=== PATIENT | female | born 1970 | race Caucasian/White ===

== ENCOUNTER 2016-11-14 00:35 | Emergency (ER) | payer BC ==
[2016-11-14] MEDS ORDERED: Catapres 0.1 MG PO ONE (01:04)
[2016-11-14] MEDS ORDERED: TRANDATE 20 MG/5 ML SYRINGE IV ONE (01:08)
[2016-11-14 01:15] LABS: BASOPHIL % 0.4 % (0.0-0.4); Eosinophil % 1.6 % (0.00-5.0); Granulocytes % 66.7 % (36.0-66.0); Lymphocytes % 25.6 % (24.0-44.0); Mean Cell Volume 87.5 fl (78-100); Mean Corpuscular Hemoglobin 28.8 pg (26-32); Mean Platelet Volume 8.9 fl (6-9.5); Monocytes % 5.7 % (0.0-12.0); Platelet Count 329 K/mm3 (150-450); Red Blood Count 3.92 M/mm3 (4.1-5.4); Red Cell Distribution Width 14.2 % (11.5-14.0); White Blood Count 10.6 K/mm3 (4.0-10.5)
[2016-11-14] MEDS ORDERED: Sodium Chloride 0.9% 1000 ML 1,000 ML IV SCH (01:15)
--- NOTE | 2016-11-14 01:19 | ERPHSYRPT ---
- History of Present Illness Time Seen by Provider: 11/14/16 00:55 Source: patient Exam Limitations: clinical condition Patient Subjective Stated Complaint: pt has an headache -no releif with rest , tramdol and excerine-she has headache that are usually relieved with those meds -she has been under alot of stress recently with money issues and driving a long distance to see a new grandchild Triage Nursing Assessment: pt is awake and alert and able to answer questions Physician History: PATIENT WITH A HISTORY OF CHRONIC HEADACHES COMPLAINS OF ELEVATED BLOOD PRESSURE FOR 2 DAYS ASSOICATDED WITH A GENERALIZED HEADACHE OVER THE PAST 24 HOURS. DENIES BLURRED VISION, SLURRED SPEECH OR CHEST PAIN. Timing/Duration: yesterday Quality: throbbing Head Pain Location: global Severity of Pain-Max: moderate Severity of Pain-Current: moderate Recent Head Trauma: occasional headaches Associated Symptoms: neck pain Allergies/Adverse Reactions: morphine Allergy (Verified 11/14/16 01:19) prochlorperazine [From Compazine] Adverse Reaction (Verified 11/14/16 01:19) Home Medications: Cholesterol 1 tab DAILY 11/14/16 [History] Doxepin HCl 300 mg DAILY 11/14/16 [History] Liraglutide [Victoza 2-Jonatan] 0 mg DAILY 11/14/16 [History] Lisinopril 20 mg [Zestril 20 MG] 1 tab DAILY 11/14/16 [History] Oxcarbazepine 300 mg [Trileptal 300 MG Tablet] 600 mg DAILY 11/14/16 [ History] Venlafaxine HCl [Effexor Xr] 150 mg PO DAILY 11/14/16 [History] Hx Tetanus, Diphtheria Vaccination/Date Given: No Hx Influenza Vaccination/Date Given: Yes Hx Pneumococcal Vaccination/Date Given: No - Review of Systems Constitutional: No Fever, No Chills Eyes: No Symptoms Ears, Nose, & Throat: No Symptoms Respiratory: No Symptoms, No Cough, No Dyspnea Cardiac: No Symptoms, No Chest Pain, No Edema, No Syncope Abdominal/Gastrointestinal: No Symptoms, No Abdominal Pain, No Nausea, No Vomiting, No Diarrhea Genitourinary Symptoms: No Symptoms, No Dysuria Musculoskeletal: No Symptoms, No Back Pain, No Neck Pain Skin: No Rash Neurological: Headache, No Dizziness, No Focal Weakness, No Sensory Changes Psychological: No Symptoms Endocrine: No Symptoms All Other Systems: Reviewed and Negative - Social History Smoking Status: Current every day smoker Exposure to second hand smoke: No Patient Lives Alone: No - Nursing Vital Signs Nursing Vital Signs: Initial Vital Signs Temperature 98.5 F 11/14/16 00:45 Pulse Rate 106 H 11/14/16 00:45 Respiratory Rate 20 11/14/16 00:45 Blood Pressure 177/104 11/14/16 00:45 O2 Sat by Pulse Oximetry 97 11/14/16 00:45 Pain Scale Pain Intensity 7 - Physical Exam General Appearance: no apparent distress Eye Exam: PERRL/EOMI Ears, Nose, Throat Exam: normal ENT inspection, moist mucous membranes Neck Exam: normal inspection, supple, full range of motion, No meningismus Respiratory Exam: normal breath sounds, lungs clear Cardiovascular Exam: regular rate/rhythm, normal heart sounds Gastrointestinal/Abdominal Exam: soft, normal bowel sounds, No tenderness, No distention Back Exam: normal inspection, normal range of motion Extremity Exam: normal inspection 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, 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, cooperative budget specialist Exam: normal speech, PERRL, No facial droop Coordination/Gait Exam: normal cerebellar function Motor/Sensory Exam: no motor deficit, no sensory deficit DTR Exam: bicep (R): 2+, bicep (L): 2+, tricep (R): 2+, tricep (L): 2+, knee (R) : 2+, knee (L): 2+, ankle (R): 2+, ankle (L): 2+, 0 Skin Exam: normal color, warm, dry, No rash SpO2 Interpretation: normal SpO2: 97 Oxygen Delivery: Room Air - Course EKG Interpreted by Me: RATE, Sinus Rhythm, Sinus Tach (RATE 96), NORMAL AXIS - CT Exams Head CT Interpretation: Tele-radiologist Report (NORMAL HEAD/BRAIN CT) Ordered Tests: Active Orders 24 hr Category Date Time Status Engineering Technology Instructor STAT Care 11/14/16 01:03 Active Clean Catch Urine Specimen STAT Care 11/14/16 02:18 Active EKG-ER Only STAT Care 11/14/16 01:02 Active IV Insertion STAT Care 11/14/16 01:02 Active HEAD WITHOUT CONTRAST [CT] Stat Exams 11/14/16 01:09 Taken BMP Stat Lab 11/14/16 01:10 Completed CBC W DIFF Stat Lab 11/14/16 01:10 Completed Urine Triage Profile Stat Lab 11/14/16 01:45 Completed Medication Summary Generic Name Dose Route Start Last Admin Trade Name Aquiles PRN Reason Stop Dose Admin Sodium Chloride 1,000 mls @ 100 mls/hr 11/14/16 01:15 11/14/16 01:43 Sodium Chloride 0.9% 1000 Ml IV 12/14/16 01:14 100 mls/hr .Q10H ANGELITA Administration Discontinued Medications Generic Name Dose Route Start Last Admin Trade Name Aquiles PRN Reason Stop Dose Admin Hydrocodone Bitart/Acetaminophen 1 tab 11/14/16 02:40 11/14/16 02:45 [place] 10/325 Mg Tablet PO 11/14/16 02:41 1 tab SENT HOME W/ PATIENT ONE Administration Hydrocodone Bitart/Acetaminophen Confirm 11/14/16 02:43 [place] 10/325 Mg Tablet Administered 11/14/16 02:44 Dose 1 tab .ROUTE .STK-MED ONE Clonidine 0.1 mg 11/14/16 01:04 11/14/16 01:34 Catapres 0.1 Mg PO 11/14/16 01:05 Not Given STAT ONE Hydromorphone HCl 1 mg 11/14/16 01:51 11/14/16 01:54 Hydromorphone 1 Mg/Ml Ampule IV 11/14/16 01:52 1 mg STAT ONE Administration Hydromorphone HCl Confirm 11/14/16 01:51 Hydromorphone 1 Mg/Ml Ampule Administered 11/14/16 01:52 Dose 1 mg .ROUTE .STK-MED ONE Ketorolac Tromethamine 30 mg 11/14/16 02:38 11/14/16 02:45 Toradol 30 Mg Injection IV 11/14/16 02:39 30 mg STAT ONE Administration Ketorolac Tromethamine Confirm 11/14/16 02:41 Toradol 30 Mg Injection Administered 11/14/16 02:42 Dose 30 mg .ROUTE .STK-MED ONE Labetalol HCl 10 mg 11/14/16 01:08 11/14/16 01:46 Trandate 20 Mg/5 Ml Syringe IV 11/14/16 01:09 10 mg STAT ONE Administration Labetalol HCl Confirm 11/14/16 01:42 Trandate 100 Mg/20 Ml Mdv For Drip Administered 11/14/16 01:43 Dose 100 mg IV .STK-MED ONE Ondansetron HCl 4 mg 11/14/16 01:50 11/14/16 01:53 Zofran 4 Mg/2 Ml Vial IV 11/14/16 01:51 4 mg STAT ONE Administration Ondansetron HCl Confirm 11/14/16 01:51 Zofran 4 Mg/2 Ml Vial Administered 11/14/16 01:52 Dose 4 mg .ROUTE .STK-MED ONE Potassium Chloride 40 meq 11/14/16 01:38 11/14/16 01:44 Klor Con 10 Meq PO 11/14/16 01:39 40 meq STAT ONE Administration Potassium Chloride Confirm 11/14/16 01:41 Klor Con 10 Meq Administered 11/14/16 01:42 Dose 40 meq PO .STK-MED ONE Lab/Rad Data: Laboratory Result Diagrams 11/14/16 01:10 11/14/16 01:10 Laboratory Results 11/14/16 11/14/16 11/14/16 Range/Units 01:45 01:10 01:10 WBC 10.6 H (4.0-10.5) K/mm3 RBC 3.92 L (4.1-5.4) M/mm3 Hgb 11.3 L (12.0-16.0) gm/dl Hct 34.3 L (35-47) % MCV 87.5 (78-100) fl MCH 28.8 (26-32) pg MCHC 32.9 (32-36) g/dl RDW 14.2 H (11.5-14.0) % Plt Count 329 (150-450) K/mm3 MPV 8.9 (6-9.5) fl Gran % 66.7 H (36.0-66.0) % Lymphocytes % 25.6 (24.0-44.0) % Monocytes % 5.7 (0.0-12.0) % Eosinophils % 1.6 (0.00-5.0) % Basophils % 0.4 (0.0-0.4) % Basophils # 0.04 (0-0.4) Sodium 134 L (136-145) mEq/L Potassium 2.8 L* (3.5-5.1) mEq/L Chloride 99 (98-107) mEq/L Carbon Dioxide 22.8 (21-32) mEq/L Anion Gap 13.5 (5-15) MEQ/L BUN 7 L (9-20) mg/dL Creatinine 0.82 (0.55-1.30) mg/dl Estimated GFR > 60 ML/MIN Glucose 143 H (70-110) MG/DL Calcium 8.5 (8.5-10.1) mg/dL Urine Opiates Level NEG. (NEGATIVE) Ur Methadone NEG. (NEGATIVE) Urine Barbiturates NEG. (NEGATIVE) Ur Phencyclidine (PCP) NEG. (NEGATIVE) Urine Amphetamine NEG. (NEGATIVE) U Benzodiazepine Level POS. (NEGATIVE) Urine Cocaine NEG. (NEGATIVE) Urine Marijuana (THC) NEG. (NEGATIVE) - Progress Progress Note: 11/14/16 01:31 PATIENT ADMINISTERED IV NORMAL SALINE 100ML/HR, ZOFRAN 4MG DILAUDID 1MG IV, KLOR CON 40MEQ ORALLY OR K-2.8 11/14/16 01:52 Counseled pt/family regarding: lab results, diagnosis, need for follow-up - Departure Time of Disposition: 03:00 Departure Disposition: Home Clinical Impression: ACUTE CEPHAGIA, HYPERTENSION, HYPOKALEMIA Condition: Stable Critical Care Time: No Referrals: VIKRAM ALVARADO FNP [Primary Care Provider] - Instructions: High Blood Pressure, Headache Additional Instructions: CONTINUE ALL CURRENT MEDICATIONS ALONG WITH TOPROL XL 25 MG DAILY FOR ELEVATED BLOOD PRESSURE. KLOR CON 20MEQ DAILY FOR 10 DAYS FOR TREATMENT OF LOW POTASSIUM. NORCO 10/325 EVERY 4 HOURS FOR PAIN. CONSULT YOUR PRIMARY CARE PHYSICIAN FOR EVALUATION, AND TREATMENT . Prescriptions: Hydrocodone/APAP 10/325 mg [[place] 10/325 MG Tablet] 1 tab PO Q4H PRN PRN # 10 tablet PRN Reason: Pain Metoprolol Succinate 25 mg Xl* [Toprol-Xl 25MG Tablets] 25 mg PO DAILY #30 tab Potassium Chloride 20 Meq [Klor-Con 20 MEQ] 20 meq PO DAILY #7 tab
[2016-11-14 01:29] LABS: ANION GAP 13.5 MEQ/L (5-15); BLOOD UREA NITROGEN 7 mg/dL (9-20); CHLORIDE 99 mEq/L (98-107); Carbon Dioxide 22.8 mEq/L (21-32); Glucose 143 MG/DL (70-110); SODIUM 134 mEq/L (136-145)
[2016-11-14 01:35] LABS: Potassium 2.8 mEq/L (3.5-5.1)
[2016-11-14] MEDS ORDERED: Klor Con 10 MEQ PO ONE ×2 (01:38→01:41)
[2016-11-14] MEDS ORDERED: Sodium Chloride 0.9% 1000 ML 1,000 ML ONE (01:42)
[2016-11-14] MEDS ORDERED: TRANDATE 100 MG/20 ML MDV FOR DRIP IV ONE (01:42)
[2016-11-14] MEDS ORDERED: Zofran 4 MG/2 ML VIAL IV ONE (01:50)
[2016-11-14] MEDS ORDERED: Hydromorphone 1 mg/ml Ampule ONE (01:51)
[2016-11-14] MEDS ORDERED: Hydromorphone 1 mg/ml Ampule IV ONE (01:51)
[2016-11-14] MEDS ORDERED: Zofran 4 MG/2 ML VIAL ONE (01:51)
[2016-11-14] MEDS ORDERED: TORAdol 30 mg Injection IV ONE (02:38)
[2016-11-14] MEDS ORDERED: Norco 10/325 MG Tablet PO ONE (02:40)
[2016-11-14] MEDS ORDERED: TORAdol 30 mg Injection ONE (02:41)
[2016-11-14] MEDS ORDERED: Norco 10/325 MG Tablet ONE (02:43)
[2016-11-14 03:01] VITALS: O2SAT 97
[2016-11-14 03:32] VITALS: BP 140/96; PULSE 86
--- NOTE | 2016-11-14 08:56 | XRAY ---
Indication: Sudden onset severe headache. History of migraine and hypertension. Multiple contiguous axial images obtained through the head without contrast. Comparison: None. Normal appearing brain parenchyma, ventricles, and bony calvarium. Visualized paranasal sinuses and mastoid air cells clear. Impression: Normal CT head without contrast exam. Comment: Preliminary interpretation was made by [facility]. No discrepancy. CT DI 66.81
== END 2016-11-14 03:15 | disposition home or self-care (01) ==
LOC: ED 00:35 → MERGE 00:35 → ED 03:15
DX: R51 Headache (principal); I10 Essential (primary) hypertension; E87.6 Hypokalemia; Z79.899 Other long term (current) drug therapy
CPT/HCPCS: 36000; 36415; 70450; 80048; 80307; 85025; 93005; 93041; 96360; 96374; 96375; 99284; J1170; J1885; J2405; A9270-GY

== ENCOUNTER 2016-11-22 11:28 | Emergency (ER) | payer BC ==
[2016-11-22] MEDS ORDERED: Sodium Chloride 0.9% 1000 ML 1,000 ML IV STA (11:53)
[2016-11-22] MEDS ORDERED: BENADRYL 50 MG/ML IV ONE ×2 (11:56→12:38)
[2016-11-22] MEDS ORDERED: Hydromorphone 1 mg/ml Ampule IV ONE ×2 (11:56→12:38)
[2016-11-22] MEDS ORDERED: Sodium Chloride 0.9% 1000 ML 1,000 ML ONE (11:56)
[2016-11-22] MEDS ORDERED: Zyprexa Zydis 5 MG PO ONE ×4 (11:57→12:40)
[2016-11-22] MEDS ORDERED: Hydromorphone 1 mg/ml Ampule ONE ×2 (12:01→12:40)
[2016-11-22] MEDS ORDERED: BENADRYL 50 MG/ML ONE ×2 (12:01→12:40)
[2016-11-22 12:08] LABS: BASOPHIL % 0.2 % (0.0-0.4); Eosinophil % 1.6 % (0.00-5.0); Granulocytes % 71.8 % (36.0-66.0); Lymphocytes % 20.7 % (24.0-44.0); Mean Cell Volume 86.7 fl (78-100); Mean Platelet Volume 8.3 fl (6-9.5); Monocytes % 5.7 % (0.0-12.0); Platelet Count 319 K/mm3 (150-450); Red Blood Count 4.07 M/mm3 (4.1-5.4); Red Cell Distribution Width 14.2 % (11.5-14.0); White Blood Count 9.2 K/mm3 (4.0-10.5)
[2016-11-22 12:10] LABS: Mean Corpuscular Hemoglobin 28.9 pg (26-32)
[2016-11-22 12:17] LABS: Collection Type VOID; Glucose TRACE mg/dL (NEGATIVE); Leukocyte Esterase TRACE (NEGATIVE)
[2016-11-22 12:18] LABS: ADD URINE CULTURE? YES (NO); Bilirubin SMALL (NEGATIVE); COMPLETE URINE MICROSCOPIC? YES
[2016-11-22 12:19] LABS: Bacteria FEW /HPF (NEGATIVE); Mucus SLIGHT /HPF (NEGATIVE)
--- NOTE | 2016-11-22 12:29 | ERPHSYRPT ---
- History of Present Illness Time Seen by Provider: 11/22/16 11:30 Source: patient, family () Patient Subjective Stated Complaint: pt states she was awakened this morning with low back and dizziness. Triage Nursing Assessment: pt cool, moist pink. pt alert and oriented x3. pupils perrl. Physician History: CC: low back pain Hx: 46 y/o patient of ALEJANDRA Mccartney at [facility] in [place]. She recently moved to [place]. She has hx of DM, bipolar disorder, HTN. Prior hysterectomy. She states she had severe low back pain since this AM. Also has neck pain. She has no headache although was seen in this ER 10-2 with headache which resolved. She has feeling of dizziness with room spinning. Nausea and vomiting. No diarrhea. No abd pain. Normal urination. No ear pain. No fever or chills. She feels malaise. 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 Symptoms are severe. At last visit she had hypokalemia and HTN. Was apparently given Rx but she is not sure if she filled them. Timing/Duration: today Allergies/Adverse Reactions: morphine Allergy (Verified 11/22/16 11:46) prochlorperazine [From Compazine] Adverse Reaction (Verified 11/22/16 11:46) Home Medications: Doxepin HCl 300 mg PO DAILY 11/14/16 [History] Liraglutide [Victoza 2-Jonatan] 0 mg DAILY 11/14/16 [History] Lisinopril 20 mg [Zestril 20 MG] 1 tab DAILY 11/14/16 [History] Oxcarbazepine 300 mg [Trileptal 300 MG Tablet] 600 mg DAILY 11/14/16 [ History] Venlafaxine HCl [Effexor Xr] 150 mg PO DAILY 11/14/16 [History] Hx Tetanus, Diphtheria Vaccination/Date Given: Yes (unknown) Hx Influenza Vaccination/Date Given: No Hx Pneumococcal Vaccination/Date Given: No Immunizations Up to Date: Yes - Review of Systems Constitutional: No Fever, No Chills Eyes: No Vision Changes Ears, Nose, & Throat: No Symptoms, No Ear Pain Respiratory: No Cough, No Dyspnea Cardiac: No Chest Pain, No Palpitations, No Syncope Abdominal/Gastrointestinal: Nausea, Vomiting, No Abdominal Pain, No Diarrhea Genitourinary Symptoms: No Dysuria Musculoskeletal: Back Pain, Neck Pain, No Fall, No Injury, No Joint Pain Skin: No Rash Neurological: No Focal Weakness, No Headache, No Parasthesia All Other Systems: Reviewed and Negative - Past Medical History Pertinent Past Medical History: Yes Neurological History: Other ENT History: No Pertinent History Cardiac History: High Cholesterol, Hypertension Respiratory History: No Pertinent History Endocrine Medical History: No Pertinent History, Diabetes Type II Musculoskeletal History: Fractures, Arthritis, Fibromyalgia GI Medical History: GERD, Gallbladder Disease, Esophageal Disorder History: No Pertinent History Psycho-Social History: Bipolar, Depression, Anxiety Female Reproductive Disorders: Endometriosis Other Medical History: cluster headaches -dilate esophagus -hyponatremia - Past Surgical History Past Surgical History: Yes Gastrointestinal: Cholecystectomy Musculoskeletal: Other Female Surgical History: Hysterectomy Other Surgical History: right foot fracture left ankle - Social History Smoking Status: Current every day smoker How long have you smoked: 30 Exposure to second hand smoke: No Drug Use: none Patient Lives Alone: No (here with ) - Nursing Vital Signs Nursing Vital Signs: Initial Vital Signs Temperature 97.9 F 11/22/16 11:34 Pulse Rate 95 H 11/22/16 11:34 Respiratory Rate 18 11/22/16 11:34 Blood Pressure 180/100 11/22/16 11:34 O2 Sat by Pulse Oximetry 97 11/22/16 11:34 Pain Scale Pain Intensity 4 - Physical Exam General Appearance: alert Eye Exam: PERRL/EOMI Ears, Nose, Throat Exam: normal ENT inspection, moist mucous membranes Neck Exam: normal inspection, non-tender, supple Respiratory Exam: normal breath sounds Cardiovascular Exam: regular rate/rhythm Gastrointestinal/Abdomen Exam: soft, No tenderness, No distention, No mass, No guarding Back Exam: normal inspection, other (complains of low back pain diffusely), No CVA tenderness, No vertebral tenderness Extremity Exam: normal inspection, normal range of motion Neurologic Exam: alert, 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, cooperative, rf manager II-XII nml as tested, nml cerebellar function (FTN and heel to hill intact without ataxia), sensation nml, other (2+ MSR's both patella), No motor deficits Skin Exam: warm, dry (although nurse reported initially diaphoretic on arrival) , No rash SpO2 Interpretation: normal SpO2: 97 Oxygen Delivery: Room Air - Course Nursing assessment & vital signs reviewed: Yes EKG Interpreted by Me: RATE (91), Sinus Rhythm, NORMAL AXIS, NORMAL INTERVALS ( QTc 483 borderline), NORMAL QRS, NORMAL ST-T Ordered Tests: Active Orders 24 hr Category Date Time Status Accucheck STAT Care 11/22/16 11:53 Active EKG-ER Only STAT Care 11/22/16 11:53 Active IV Insertion STAT Care 11/22/16 11:44 Active cath [Cath for Specimen-Straight] STAT Care 11/22/16 11:59 Active CBC W DIFF Stat Lab 11/22/16 12:00 Completed CMP Stat Lab 11/22/16 12:00 Completed CULTURE,URINE Stat Lab 11/22/16 11:53 Received MAGNESIUM Stat Lab 11/22/16 12:00 Completed UA W/ MICROSCOPIC Stat Lab 11/22/16 11:53 Completed Urine Triage Profile Stat Lab 11/22/16 11:53 Completed Medication Summary Discontinued Medications Generic Name Dose Route Start Last Admin Trade Name Freq PRN Reason Stop Dose Admin Diphenhydramine HCl 25 mg 11/22/16 11:56 11/22/16 12:03 Benadryl 50 Mg/Ml IV 11/22/16 11:57 25 mg STAT ONE Administration Diphenhydramine HCl Confirm 11/22/16 12:01 Benadryl 50 Mg/Ml Administered 11/22/16 12:02 Dose 50 mg .ROUTE .STK-MED ONE Diphenhydramine HCl 25 mg 11/22/16 12:38 11/22/16 12:43 Benadryl 50 Mg/Ml IV 11/22/16 12:39 25 mg STAT ONE Administration Diphenhydramine HCl Confirm 11/22/16 12:40 Benadryl 50 Mg/Ml Administered 11/22/16 12:41 Dose 50 mg .ROUTE .STK-MED ONE Hydromorphone HCl 1 mg 11/22/16 11:56 11/22/16 12:03 Hydromorphone 1 Mg/Ml Ampule IV 11/22/16 11:57 1 mg STAT ONE Administration Hydromorphone HCl Confirm 11/22/16 12:01 Hydromorphone 1 Mg/Ml Ampule Administered 11/22/16 12:02 Dose 1 mg .ROUTE .STK-MED ONE Hydromorphone HCl 1 mg 11/22/16 12:38 11/22/16 12:44 Hydromorphone 1 Mg/Ml Ampule IV 11/22/16 12:39 1 mg STAT ONE Administration Hydromorphone HCl Confirm 11/22/16 12:40 Hydromorphone 1 Mg/Ml Ampule Administered 11/22/16 12:41 Dose 1 mg .ROUTE .STK-MED ONE Sodium Chloride 1,000 mls @ 999 mls/hr 11/22/16 11:53 11/22/16 11:59 Sodium Chloride 0.9% 1000 Ml IV 11/22/16 12:53 999 mls/hr .Q1H1M STA Administration Sodium Chloride Confirm 11/22/16 11:56 Sodium Chloride 0.9% 1000 Ml Administered 11/22/16 11:57 Dose 1,000 mls @ ud .ROUTE .STK-MED ONE Olanzapine 5 mg 11/22/16 11:57 11/22/16 12:04 Zyprexa Zydis 5 Mg PO 11/22/16 11:58 5 mg STAT ONE Administration Olanzapine Confirm 11/22/16 12:01 Zyprexa Zydis 5 Mg Administered 11/22/16 12:02 Dose 5 mg PO .STK-MED ONE Olanzapine 5 mg 11/22/16 12:39 11/22/16 12:44 Zyprexa Zydis 5 Mg PO 11/22/16 12:40 5 mg STAT ONE Administration Olanzapine Confirm 11/22/16 12:40 Zyprexa Zydis 5 Mg Administered 11/22/16 12:41 Dose 5 mg PO .STK-MED ONE Lab/Rad Data: Laboratory Result Diagrams 11/22/16 12:00 11/22/16 12:00 Laboratory Results 11/22/16 11/22/16 11/22/16 Range/Units 12:00 12:00 12:00 WBC 9.2 (4.0-10.5) K/mm3 RBC 4.07 L (4.1-5.4) M/mm3 Hgb 11.8 L (12.0-16.0) gm/dl Hct 35.3 (35-47) % MCV 86.7 (78-100) fl MCH 28.9 (26-32) pg MCHC 33.4 (32-36) g/dl RDW 14.2 H (11.5-14.0) % Plt Count 319 (150-450) K/mm3 MPV 8.3 (6-9.5) fl Gran % 71.8 H (36.0-66.0) % Lymphocytes % 20.7 L (24.0-44.0) % Monocytes % 5.7 (0.0-12.0) % Eosinophils % 1.6 (0.00-5.0) % Basophils % 0.2 (0.0-0.4) % Basophils # 0.02 (0-0.4) Sodium 130 L (136-145) mEq/L Potassium 3.5 (3.5-5.1) mEq/L Chloride 95 L (98-107) mEq/L Carbon Dioxide 25.1 (21-32) mEq/L Anion Gap 13.2 (5-15) MEQ/L BUN 7 L (9-20) mg/dL Creatinine 0.75 (0.55-1.30) mg/dl Estimated GFR > 60 ML/MIN Glucose 131 H (70-110) MG/DL Calcium 8.6 (8.5-10.1) mg/dL Magnesium 1.9 (1.8-2.4) mg/dL Total Bilirubin 0.30 (0.2-1.0) mg/dL AST 15 (15-37) U/L ALT 21 (12-78) U/L Alkaline Phosphatase 115 (46-116) U/L Serum Total Protein 7.5 (6.4-8.2) gm/dL Albumin 3.6 (3.4-5.0) g/dL Ur Collection Type Urine Color (YELLOW) Urine Appearance (CLEAR) Urine pH (5-6) Ur Specific [place] (1.005-1.025) Urine Protein (Negative) Urine Ketones (NEGATIVE) Urine Blood (0-5) Stanley/ul Urine Nitrite (NEGATIVE) Urine Bilirubin (NEGATIVE) Urine Urobilinogen (0-1) mg/dL Ur Leukocyte Esterase (NEGATIVE) Urine Microscopic RBC (0-2) /HPF Urine Microscopic WBC (0-5) /HPF Urine Bacteria (NEGATIVE) /HPF Urine Mucus (NEGATIVE) /HPF Urine Culture Reflexed (NO) Urine Glucose (NEGATIVE) mg/dL Urine Opiates Level (NEGATIVE) Ur Methadone (NEGATIVE) Urine Barbiturates (NEGATIVE) Ur Phencyclidine (PCP) (NEGATIVE) Urine Amphetamine (NEGATIVE) U Benzodiazepine Level (NEGATIVE) Urine Cocaine (NEGATIVE) Urine Marijuana (THC) (NEGATIVE) Specimen Received 11/22/16 11/22/16 Range/Units 11:53 11:53 WBC (4.0-10.5) K/mm3 RBC (4.1-5.4) M/mm3 Hgb (12.0-16.0) gm/dl Hct (35-47) % MCV (78-100) fl MCH (26-32) pg MCHC (32-36) g/dl RDW (11.5-14.0) % Plt Count (150-450) K/mm3 MPV (6-9.5) fl Gran % (36.0-66.0) % Lymphocytes % (24.0-44.0) % Monocytes % (0.0-12.0) % Eosinophils % (0.00-5.0) % Basophils % (0.0-0.4) % Basophils # (0-0.4) Sodium (136-145) mEq/L Potassium (3.5-5.1) mEq/L Chloride (98-107) mEq/L Carbon Dioxide (21-32) mEq/L Anion Gap (5-15) MEQ/L BUN (9-20) mg/dL Creatinine (0.55-1.30) mg/dl Estimated GFR ML/MIN Glucose (70-110) MG/DL Calcium (8.5-10.1) mg/dL Magnesium (1.8-2.4) mg/dL Total Bilirubin (0.2-1.0) mg/dL AST (15-37) U/L ALT (12-78) U/L Alkaline Phosphatase (46-116) U/L Serum Total Protein (6.4-8.2) gm/dL Albumin (3.4-5.0) g/dL Ur Collection Type VOID Urine Color YELLOW (YELLOW) Urine Appearance CLEAR (CLEAR) Urine pH 6.0 (5-6) Ur Specific [place] 1.020 (1.005-1.025) Urine Protein 2+ (Negative) Urine Ketones TRACE (NEGATIVE) Urine Blood 5-10 (0-5) Stanley/ul Urine Nitrite NEGATIVE (NEGATIVE) Urine Bilirubin SMALL (NEGATIVE) Urine Urobilinogen NORMAL (0-1) mg/dL Ur Leukocyte Esterase TRACE (NEGATIVE) Urine Microscopic RBC 2-5 (0-2) /HPF Urine Microscopic WBC 2-5 (0-5) /HPF Urine Bacteria FEW (NEGATIVE) /HPF Urine Mucus SLIGHT (NEGATIVE) /HPF Urine Culture Reflexed YES (NO) Urine Glucose TRACE (NEGATIVE) mg/dL Urine Opiates Level NEG. (NEGATIVE) Ur Methadone NEG. (NEGATIVE) Urine Barbiturates NEG. (NEGATIVE) Ur Phencyclidine (PCP) NEG. (NEGATIVE) Urine Amphetamine NEG. (NEGATIVE) U Benzodiazepine Level POS. (NEGATIVE) Urine Cocaine NEG. (NEGATIVE) Urine Marijuana (THC) NEG. (NEGATIVE) Specimen Received 11/22/16 1200 - Progress Progress Note: 11/22/16 12:35 INSPECT reviewed: She had valium last week from ALEJANDRA Mccartney, multiple Rx from various places for tramadol, hydrocodone, soma, ambien. She has first complaint of low back pain. Not similar to prior kidney stone and no injury. She has neck pain without headache or injury. She has some vertigo without nystagmus at present. Neuro exam wnl. Will check K and Na as hx of abnormalities. Will treat pain and dizzines with IVF, benadryl, dilaudid, zydis. Imaging does not appears immediately indicated. 11/22/16 14:04 She feels better after meds and IVF. Sugar ok. Explained need for BP control and to watch kidneys and DM as she has proteniuria. She has seen a photonics engineering technician in the past and plans follow up. She ambulated in [place]. Went to . She is able to do toe walk, heel walk, and tandem walk. She turns well. No cerebellar signs. She wants to go home. She has left over meclizine from the past and will use it. Advised she see ALEJANDRA Mccartney tomorrow for recheck. Instr given. She feels low back pain may be related to constipation and this was discussed. Counseled pt/family regarding: lab results, diagnosis, need for follow-up - Departure Time of Disposition: 14:06 Departure Disposition: Home Clinical Impression: Dizziness, Low back pain, Diabetes Condition: Stable Critical Care Time: No Referrals: VIKRAM MCCARTNEY FNP [Primary Care Provider] - Instructions: Vertigo, Low Back Pain Additional Instructions: Take meclizine as already prescribed. No driving and stay with family today. Avoid doxepin today if too sleepy. Follow up at [facility] tomorrow for recheck. Take your medication bottles with you. Your blood pressure needs to be rechecked and controlled to prevent kidney damage.
[2016-11-22 12:38] VITALS: O2SAT 97
[2016-11-22 12:46] LABS: ALBUMIN 3.6 g/dL (3.4-5.0); ALKALINE PHOSPHATASE 115 U/L (46-116); ANION GAP 13.2 MEQ/L (5-15); BLOOD UREA NITROGEN 7 mg/dL (9-20); CHLORIDE 95 mEq/L (98-107); Carbon Dioxide 25.1 mEq/L (21-32); Glucose 131 MG/DL (70-110); Potassium 3.5 mEq/L (3.5-5.1); SGOT/AST 15 U/L (15-37); SGPT/ALT 21 U/L (12-78); SODIUM 130 mEq/L (136-145); Total Protein 7.5 gm/dL (6.4-8.2)
[2016-11-22 13:49] VITALS: BP 163/109; PULSE 85
== END 2016-11-22 14:12 | disposition home or self-care (01) ==
LOC: ED 11:28
DX: R42 Dizziness and giddiness (principal); M54.5 Low back pain; E11.9 Type 2 diabetes mellitus without complications; F31.9 Bipolar disorder, unspecified; I10 Essential (primary) hypertension; R11.2 Nausea with vomiting, unspecified; E87.6 Hypokalemia
CPT/HCPCS: 36000; 36415; 80053; 80307; 81000; 82962; 83735; 85025; 87086; 93005; 96360; 96374; 96375; 96376; 99284; J1170; J1200; P9612; A9270-GY

== ENCOUNTER 2016-12-30 18:53 | Emergency (ER) | payer BC ==
[2016-12-30] MEDS ORDERED: ZOFRAN ODT 4 MG PO ONE (19:34)
[2016-12-30] MEDS ORDERED: Hydromorphone 1 mg/ml Ampule IM ONE (19:34)
[2016-12-30] MEDS ORDERED: ZOFRAN ODT 4 MG ONE (19:41)
[2016-12-30] MEDS ORDERED: Hydromorphone 1 mg/ml Ampule ONE (19:42)
--- NOTE | 2016-12-30 19:47 | ERPHSYRPT ---
- History of Present Illness Time Seen by Provider: 12/30/16 19:26 Source: patient Exam Limitations: no limitations Patient Subjective Stated Complaint: pt states that she has had a headache since monday. states she thinks it is a stress headache. Triage Nursing Assessment: pt alert and oriented, asnwers questions approp. pt ambulatory with steady gait noted. respirations nonlabored with lungs cta. skin pnk warm and dry. pupils equal and reactive, bilat upper and lower ext strength wnl. Physician History: FOR THE PAST 3 DAYS PT HAS HAD A STRESS HEADACHE LOCATED OVER THE OCCIPITAL AREA. PT STATES SHE HAS HAS SIMILAR HEADACHES FOR THE PAST 30 YEARS ABOUT 10X/ YEAR. LAST CT HEAD WAS ABOUT 1.5 MONTHS AGO AND WNL PER PT. PT DENIES VOMITING, ABDOMINAL PAIN, CHEST PAIN, SHORTNESS OF AIR, FEVER, WEAKNESS, NUMBNESS. Allergies/Adverse Reactions: morphine Allergy (Verified 12/30/16 19:13) prochlorperazine [From Compazine] Adverse Reaction (Verified 12/30/16 19:13) Home Medications: Doxepin HCl 300 mg PO DAILY 11/14/16 [History] Liraglutide [Victoza 2-Jonatan] 0 mg DAILY 11/14/16 [History] Lisinopril 20 mg [Zestril 20 MG] 1 tab DAILY 11/14/16 [History] Oxcarbazepine 300 mg [Trileptal 300 MG Tablet] 600 mg DAILY 11/14/16 [ History] Venlafaxine HCl [Effexor Xr] 150 mg PO DAILY 11/14/16 [History] Carisoprodol 350 mg [Soma 350 mg] 350 mg PO BID 12/30/16 [History] Esomeprazole Magnesium [Nexium] 20 mg PO DAILY 12/30/16 [History] Hydrocodone/Acetaminophen [[place] 5-325 Tablet] 1 each PO 12/30/16 [History] Hx Tetanus, Diphtheria Vaccination/Date Given: Yes Hx Influenza Vaccination/Date Given: Yes Hx Pneumococcal Vaccination/Date Given: No Immunizations Up to Date: Yes - Review of Systems Constitutional: No Fever Respiratory: No Dyspnea Cardiac: No Chest Pain Abdominal/Gastrointestinal: No Abdominal Pain, No Nausea, No Vomiting Neurological: Headache All Other Systems: Reviewed and Negative - Past Medical History Pertinent Past Medical History: Yes Neurological History: Other ENT History: No Pertinent History Cardiac History: High Cholesterol, Hypertension Respiratory History: No Pertinent History Endocrine Medical History: No Pertinent History, Diabetes Type II Musculoskeletal History: Fractures, Arthritis, Fibromyalgia GI Medical History: GERD, Gallbladder Disease, Esophageal Disorder History: No Pertinent History Psycho-Social History: Bipolar, Anxiety Female Reproductive Disorders: Endometriosis Other Medical History: cluster headaches -dilate esophagus -hyponatremia - Past Surgical History Past Surgical History: Yes Gastrointestinal: Cholecystectomy Musculoskeletal: Other Female Surgical History: Hysterectomy Other Surgical History: right foot fracture, carpal tunnel and tendon repair to rt wrist - Social History Smoking Status: Current every day smoker How long have you smoked: 30 Exposure to second hand smoke: No Drug Use: none Patient Lives Alone: No - Female History Hx Last Menstrual Period: hyster - Nursing Vital Signs Nursing Vital Signs: Initial Vital Signs Temperature 98.8 F 12/30/16 19:01 Pulse Rate 109 H 12/30/16 19:01 Respiratory Rate 18 12/30/16 19:01 Blood Pressure 132/92 12/30/16 19:01 O2 Sat by Pulse Oximetry 98 12/30/16 19:01 Pain Scale Pain Intensity 8 - Physical Exam General Appearance: alert Eye Exam: PERRL/EOMI Ears, Nose, Throat Exam: TMs normal, pharynx normal, moist mucous membranes Neck Exam: normal inspection Respiratory Exam: lungs clear Cardiovascular Exam: normal heart sounds Gastrointestinal/Abdominal Exam: soft, normal bowel sounds Back Exam: normal range of motion Extremity Exam: normal range of motion 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, 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 Exam: normal hearing, normal speech, PERRL Motor/Sensory Exam: no sensory deficit, negative Babinski's sign Skin Exam: warm, dry SpO2 Interpretation: normal SpO2: 98 Oxygen Delivery: Room Air - Course Nursing assessment & vital signs reviewed: Yes Ordered Tests: Medication Summary Generic Name Dose Route Start Last Admin Trade Name Freq PRN Reason Stop Dose Admin Hydromorphone HCl 1 mg 12/30/16 19:34 Hydromorphone 1 Mg/Ml Ampule IM 12/30/16 19:35 STAT ONE Ondansetron HCl 4 mg 12/30/16 19:34 Zofran Odt 4 Mg PO 12/30/16 19:35 STAT ONE - Departure Time of Disposition: 19:50 Departure Disposition: Home Clinical Impression: HEADACHE Condition: Stable Critical Care Time: No Referrals: VIKRAM ALVARADO FNP [Primary Care Provider] - Instructions: Headache Additional Instructions: FOLLOW UP WITH PRIVATE DOCTOR TOMORROW.
[2016-12-30 20:14] VITALS: BP 127/75; PULSE 80; O2SAT 97
== END 2016-12-30 20:39 | disposition home or self-care (01) ==
LOC: ED 18:53
DX: R51 Headache (principal); Z79.899 Other long term (current) drug therapy
CPT/HCPCS: 96372; 99283; 99284; J1170; Q0162

== ENCOUNTER 2017-01-16 16:59 | Emergency (ER) | payer BC ==
[2017-01-16] MEDS ORDERED: MOTRIN 400 MG PO ONE (17:18)
[2017-01-16] MEDS ORDERED: MOTRIN 400 MG ONE (17:21)
--- NOTE | 2017-01-16 17:22 | ERPHSYRPT ---
- History of Present Illness Time Seen by Provider: 01/16/17 17:18 Source: patient Exam Limitations: no limitations Patient Subjective Stated Complaint: Pt states "I had carpal tunnel surgery and tendon repair on my right wrist in december 06 and today I stepped in a hole and fell and put my hands out to catch myself and my wrist is killing me." Triage Nursing Assessment: Pt alert and oriented X 3, skin pwd. Pt ambulates with an upright steady gait, able to speak, in clear full sentences. right wrist swollen and right hand weak Physician History: mild to mod ache pain constant right wrist when tripped and fell today, no bleeding, no other injury, hx carpal tunnel surgery 12/[address] Boyce Allergies/Adverse Reactions: morphine Allergy (Verified 12/30/16 19:13) prochlorperazine [From Compazine] Adverse Reaction (Verified 12/30/16 19:13) Home Medications: Doxepin HCl 300 mg PO DAILY 11/14/16 [History] Liraglutide [Victoza 2-Jonatan] 9 mg PO DAILY 11/14/16 [History] Lisinopril 20 mg [Zestril 20 MG] 1 tab DAILY 11/14/16 [History] Oxcarbazepine 300 mg [Trileptal 300 MG Tablet] 600 mg DAILY 11/14/16 [ History] Venlafaxine HCl [Effexor Xr] 150 mg PO DAILY 11/14/16 [History] Esomeprazole Magnesium [Nexium] 20 mg PO DAILY 12/30/16 [History] Hx Tetanus, Diphtheria Vaccination/Date Given: Yes Hx Influenza Vaccination/Date Given: Yes Hx Pneumococcal Vaccination/Date Given: No Immunizations Up to Date: Yes - Review of Systems Constitutional: No Symptoms Eyes: No Symptoms Respiratory: No Symptoms Cardiac: No Symptoms Abdominal/Gastrointestinal: No Symptoms Musculoskeletal: Joint Pain, No Back Pain, No Neck Pain Skin: No Skin Lesions Neurological: No Dizziness - Past Medical History Pertinent Past Medical History: Yes Neurological History: Other ENT History: No Pertinent History Cardiac History: High Cholesterol, Hypertension Respiratory History: No Pertinent History Endocrine Medical History: No Pertinent History, Diabetes Type II Musculoskeletal History: Fractures, Arthritis, Fibromyalgia GI Medical History: GERD, Gallbladder Disease, Esophageal Disorder History: No Pertinent History Psycho-Social History: Bipolar, Anxiety Female Reproductive Disorders: Endometriosis Other Medical History: cluster headaches -dilate esophagus -hyponatremia - Past Surgical History Past Surgical History: Yes Gastrointestinal: Cholecystectomy Musculoskeletal: Other Female Surgical History: Hysterectomy Other Surgical History: right foot fracture, carpal tunnel and tendon repair to rt wrist - Social History Smoking Status: Current every day smoker How long have you smoked: 30 years Exposure to second hand smoke: Yes Drug Use: none Patient Lives Alone: No - Female History Hx Last Menstrual Period: hysterectomy Hx Now: No - Nursing Vital Signs Nursing Vital Signs: Initial Vital Signs Temperature 99.0 F 01/16/17 17:05 Pulse Rate 110 H 01/16/17 17:05 Respiratory Rate 18 01/16/17 17:05 Blood Pressure 153/110 01/16/17 17:05 O2 Sat by Pulse Oximetry 96 01/16/17 17:05 Pain Scale Pain Intensity 8 - Danyel Coma Score Best Eye Response (Danyel): (4) open spontaneously Best Verbal Response ([place]): (5) oriented Best Motor Response (Danyel): (6) obeys commands Danyel Total: 15 - Physical Exam General Appearance: no apparent distress Head Injury: no evidence of injury Neck Exam: supple, No c-collar in place Extremity Exam: other (tender radial right wrist, ehsan, sen and pulses intact, nontender elbow and shoulder) Neurologic Exam: alert, 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 Skin Exam: normal color, warm, dry SpO2 Interpretation: normal SpO2: 96 Oxygen Delivery: Room Air - Course Nursing assessment & vital signs reviewed: Yes - Radiology Exams Hand X-ray Interpretation: Interpreted by me, No Fracture Wrist X-ray Interpretation: Interpreted by me, No Fracture Ordered Tests: Active Orders 24 hr Category Date Time Status Splint STAT Care 01/16/17 18:18 Ordered HAND (MINIMUM 3 VIEWS) Stat Exams 01/16/17 Taken WRIST (MIN 3 VIEWS) Stat Exams 01/16/17 Taken Medication Summary Discontinued Medications Generic Name Dose Route Start Last Admin Trade Name Aquiles PRN Reason Stop Dose Admin Ibuprofen 400 mg 01/16/17 17:18 01/16/17 17:23 Motrin 400 Mg PO 01/16/17 17:19 400 mg STAT ONE Administration Ibuprofen Confirm 01/16/17 17:21 Motrin 400 Mg Administered 01/16/17 17:22 Dose 400 mg .ROUTE .STK-MED ONE - Progress Progress: improved Progress Note: 01/16/17 18:20 thumb spicca ocl splint per nursing motrin ice and elevation see your Dr Boyce Will see patient in: other (Dr Boyce) Counseled pt/family regarding: diagnosis, need for follow-up, rad results - Departure Time of Disposition: 18:21 Departure Disposition: Home Clinical Impression: Wrist injury Qualifiers: Encounter type: initial encounter Laterality: right Qualified Code(s): S69.91XA - Unspecified injury of right wrist, hand and finger(s), initial encounter Condition: Stable Critical Care Time: No Referrals: VIKRAM ALVARADO FNP [Primary Care Provider] - Instructions: Wrist Sprain Additional Instructions: motrin ice and elevation wear the splint see your Dr Boyce return if worse
[2017-01-16 18:34] VITALS: BP 150/99; PULSE 94; O2SAT 98
--- NOTE | 2017-01-17 08:41 | XRAY ---
Indication: Pain following fall. Comparison: None 3 views of the right wrist demonstrates mild degenerative changes of the first metacarpal multangular articulation and mild radiocarpal degenerative joint space narrowing. No other bony, articular, or soft tissue abnormalities.
--- NOTE | 2017-01-17 08:42 | XRAY ---
Indication: Pain following fall. Comparison: None 3 views of the right hand demonstrates mild degenerative changes of the first metacarpal multangular articulation and mild radiocarpal degenerative joint space narrowing. No other bony, articular, or soft tissue abnormalities.
== END 2017-01-16 18:38 | disposition home or self-care (01) ==
LOC: ED 16:59
PROC: 2W3CX1Z Immobilization of Right Lower Arm using Splint (ICD-10-PCS; principal; 2017-01-16)
DX: S69.91XA Unspecified injury of right wrist, hand and finger(s), initial encounter (principal); X50.0XXA Overexertion from strenuous movement or load, initial encounter
CPT/HCPCS: 29126; 73110; 73130; 99283; A9270-GY

== ENCOUNTER 2017-02-02 22:05 | Emergency (ER) | payer BC ==
[2017-02-02] MEDS ORDERED: Hydromorphone 1 mg/ml Ampule IM ONE (23:13)
[2017-02-02] MEDS ORDERED: ZOFRAN ODT 4 MG PO ONE (23:13)
--- NOTE | 2017-02-02 23:17 | ERPHSYRPT ---
- History of Present Illness Time Seen by Provider: 02/02/17 23:02 Source: patient Exam Limitations: no limitations Patient Subjective Stated Complaint: pt reports headache and pain and tension to the neck and upper back. states she is under a lot of stress. reports this is her first holiday without her mother, a friend recently commited suicide and the upcoming holiday has her upset. states she cannot relax, family MD called in a muscle relaxer that did not help. pt denies any suicidal ideation. Triage Nursing Assessment: pt is aox3, pupils perrl, hand proof passer strong and equal , resps easy and non labored. skin is pink warm and dry. pt appears anxious. denies any thoughts of self harm. pain localized to the occipital region with radiation to the neck and shoulders bilat. Physician History: 46 y/o female comes to the ER with complaints of bifrontal headache, neck pain, back pain and shoulder pain for the past few days. Pt describes the pain as aching, constant, 8/10 and relieved by motrin. Pt denies any blurry vision, nausea, vomiting, photophobia, weakness or dizziness. Pt states that she has had these pains in the past and it is usually associated with increasing stress. Pt recently lost a family member and is under a lot of stress. Timing/Duration: yesterday Quality: aching Head Pain Location: frontal, occipital Severity of Pain-Max: severe Severity of Pain-Current: severe Recent Head Trauma: no recent headache/trauma Allergies/Adverse Reactions: morphine Allergy (Verified 02/02/17 22:57) prochlorperazine [From Compazine] Adverse Reaction (Verified 02/02/17 22:57) Home Medications: Doxepin HCl 300 mg PO DAILY 11/14/16 [History] Liraglutide [Victoza 2-Jonatan] 9 mg PO DAILY 11/14/16 [History] Lisinopril 20 mg [Zestril 20 MG] 1 tab DAILY 11/14/16 [History] Oxcarbazepine 300 mg [Trileptal 300 MG Tablet] 600 mg DAILY 11/14/16 [ History] Venlafaxine HCl [Effexor Xr] 150 mg PO DAILY 11/14/16 [History] Esomeprazole Magnesium [Nexium] 20 mg PO DAILY 12/30/16 [History] Hx Tetanus, Diphtheria Vaccination/Date Given: Yes Hx Influenza Vaccination/Date Given: Yes Hx Pneumococcal Vaccination/Date Given: No Immunizations Up to Date: Yes - Review of Systems Constitutional: No Fever, No Chills Eyes: No Symptoms Ears, Nose, & Throat: No Symptoms Respiratory: No Cough, No Dyspnea Cardiac: No Chest Pain, No Edema, No Syncope Abdominal/Gastrointestinal: No Abdominal Pain, No Nausea, No Vomiting, No Diarrhea Genitourinary Symptoms: No Dysuria Musculoskeletal: Arthralgias, Back Pain, Neck Pain, Myalgias Skin: No Rash Neurological: Headache, No Dizziness, No Focal Weakness, No Sensory Changes Psychological: No Symptoms Endocrine: No Symptoms All Other Systems: Reviewed and Negative - Past Medical History Pertinent Past Medical History: Yes Neurological History: Other ENT History: No Pertinent History Cardiac History: High Cholesterol, Hypertension Respiratory History: No Pertinent History Endocrine Medical History: No Pertinent History, Diabetes Type II Musculoskeletal History: Fractures, Arthritis, Fibromyalgia GI Medical History: GERD, Gallbladder Disease, Esophageal Disorder History: No Pertinent History Psycho-Social History: Bipolar, Anxiety Female Reproductive Disorders: Endometriosis Other Medical History: cluster headaches -dilate esophagus -hyponatremia - Past Surgical History Past Surgical History: Yes Gastrointestinal: Cholecystectomy Musculoskeletal: Other Female Surgical History: Hysterectomy Other Surgical History: right foot fracture, carpal tunnel and tendon repair to rt wrist - Social History Smoking Status: Current every day smoker How long have you smoked: 1 Exposure to second hand smoke: Yes Drug Use: none Patient Lives Alone: No - Female History Hx Last Menstrual Period: hyst Hx Now: No - Nursing Vital Signs Nursing Vital Signs: Initial Vital Signs Temperature 98.7 F 02/02/17 22:48 Pulse Rate 97 H 02/02/17 22:48 Respiratory Rate 18 02/02/17 22:48 Blood Pressure 174/101 02/02/17 22:48 O2 Sat by Pulse Oximetry 95 02/02/17 22:48 Pain Scale Pain Intensity 9 - Physical Exam General Appearance: no apparent distress, mild distress Eye Exam: PERRL/EOMI Ears, Nose, Throat Exam: normal ENT inspection, moist mucous membranes Neck Exam: normal inspection, supple, full range of motion, No meningismus Respiratory Exam: normal breath sounds, lungs clear Cardiovascular Exam: regular rate/rhythm, normal heart sounds Gastrointestinal/Abdominal Exam: soft, No tenderness, No distention Back Exam: normal inspection, normal range of motion 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, 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, 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 Exam: normal speech, PERRL, No facial droop Coordination/Gait Exam: normal cerebellar function Motor/Sensory Exam: no motor deficit, no sensory deficit Skin Exam: normal color, warm, dry, No rash SpO2: 95 Oxygen Delivery: Room Air - Course Nursing assessment & vital signs reviewed: Yes Ordered Tests: Medication Summary Discontinued Medications Generic Name Dose Route Start Last Admin Trade Name Aquiles PRN Reason Stop Dose Admin Hydromorphone HCl 1 mg 02/02/17 23:13 02/02/17 23:23 Hydromorphone 1 Mg/Ml Ampule IM 02/02/17 23:14 1 mg STAT ONE Administration Hydromorphone HCl Confirm 02/02/17 23:20 Hydromorphone 1 Mg/Ml Ampule Administered 02/02/17 23:21 Dose 1 mg .ROUTE .STK-MED ONE Ondansetron HCl 4 mg 02/02/17 23:13 02/02/17 23:21 Zofran Odt 4 Mg PO 02/02/17 23:14 4 mg STAT ONE Administration Ondansetron HCl Confirm 02/02/17 23:20 Zofran Odt 4 Mg Administered 02/02/17 23:21 Dose 4 mg .ROUTE .STK-MED ONE - Progress Progress: improved Progress Note: 02/02/17 23:57 Pt feels better after receiving dilaudid 1mg IM X 1 dose. Pt still has some tightness in the upper back and will receive toradol. Pt will be d/c home with a diagnosis of tension headache. - Departure Time of Disposition: 23:59 Departure Disposition: Home Clinical Impression: Tension headache Back pain Qualifiers: Back pain location: back pain in unspecified location Chronicity: unspecified Back pain laterality: unspecified Qualified Code(s): M54.9 - Dorsalgia, unspecified Condition: Stable Critical Care Time: No Referrals: VIKRAM ALVARADO FNP [Primary Care Provider] - Instructions: Headache, Low Back Pain Additional Instructions: Follow up with your primary care doctor for any additional pain medications
[2017-02-02] MEDS ORDERED: Hydromorphone 1 mg/ml Ampule ONE (23:20)
[2017-02-02] MEDS ORDERED: ZOFRAN ODT 4 MG ONE (23:20)
[2017-02-02] MEDS ORDERED: TORAdol 30 mg Injection IM ONE (23:57)
[2017-02-03 00:01] VITALS: BP 135/78; PULSE 70; O2SAT 94
[2017-02-03] MEDS ORDERED: TORAdol 30 mg Injection ONE (00:02)
== END 2017-02-03 00:24 | disposition home or self-care (01) ==
LOC: ED 22:05
DX: G44.209 Tension-type headache, unspecified, not intractable (principal); M54.9 Dorsalgia, unspecified
CPT/HCPCS: 96372; 99284; J1170; J1885; Q0162

== ENCOUNTER 2017-02-24 01:27 | Emergency (ER) | payer BC ==
[2017-02-24] MEDS ORDERED: MOTRIN 400 MG PO ONE (01:42)
[2017-02-24 01:50] VITALS: BP 131/88; PULSE 100; O2SAT 100
[2017-02-24] MEDS ORDERED: MOTRIN 400 MG ONE (01:52)
--- NOTE | 2017-02-24 01:52 | ERPHSYRPT ---
- History of Present Illness Time Seen by Provider: 02/24/17 01:38 Source: patient Exam Limitations: no limitations Physician History: Pt was in her yard, slipped and fell forward, on her face, injured her head, c/ o small cut on her upper lip, facial and neck pain, and right hand being painful. She denies other injury or complaints, she has been ambulating, received Td 4 years ago. Occurred: just prior to arrival Severity: mild Head Injury Location: frontal Method of Injury: fell Loss of Consciousness: no loss of consciousness Associated Symptoms: denies symptoms Allergies/Adverse Reactions: morphine Allergy (Verified 02/02/17 22:57) prochlorperazine [From Compazine] Adverse Reaction (Verified 02/02/17 22:57) Home Medications: Doxepin HCl 300 mg PO DAILY 11/14/16 [History] Liraglutide [Victoza 2-Jonatan] 9 mg PO DAILY 11/14/16 [History] Lisinopril 20 mg [Zestril 20 MG] 1 tab DAILY 11/14/16 [History] Oxcarbazepine 300 mg [Trileptal 300 MG Tablet] 600 mg DAILY 11/14/16 [ History] Venlafaxine HCl [Effexor Xr] 150 mg PO DAILY 11/14/16 [History] Esomeprazole Magnesium [Nexium] 20 mg PO DAILY 12/30/16 [History] Hx Tetanus, Diphtheria Vaccination/Date Given: Yes Hx Influenza Vaccination/Date Given: Yes Hx Pneumococcal Vaccination/Date Given: No - Review of Systems Constitutional: No Symptoms Musculoskeletal: Fall, Other (right hand and wrist pain) Skin: Other (lip laceration) All Other Systems: Reviewed and Negative - Past Medical History Pertinent Past Medical History: Yes Neurological History: Other ENT History: No Pertinent History Cardiac History: High Cholesterol, Hypertension Respiratory History: No Pertinent History Endocrine Medical History: No Pertinent History, Diabetes Type II Musculoskeletal History: Fractures, Arthritis, Fibromyalgia GI Medical History: GERD, Gallbladder Disease, Esophageal Disorder History: No Pertinent History Psycho-Social History: Bipolar, Anxiety Female Reproductive Disorders: Endometriosis Other Medical History: cluster headaches -dilate esophagus -hyponatremia - Past Surgical History Past Surgical History: Yes Gastrointestinal: Cholecystectomy Musculoskeletal: Other Female Surgical History: Hysterectomy Other Surgical History: right foot fracture, carpal tunnel and tendon repair to rt wrist - Social History Smoking Status: Current every day smoker How long have you smoked: 1 Exposure to second hand smoke: Yes Drug Use: none Patient Lives Alone: No - Female History Hx Now: No - Nursing Vital Signs Nursing Vital Signs: Initial Vital Signs Temperature 98.6 F 02/24/17 01:34 Pulse Rate 100 H 02/24/17 01:34 Respiratory Rate 20 02/24/17 01:34 Blood Pressure 131/88 02/24/17 01:34 O2 Sat by Pulse Oximetry 100 02/24/17 01:34 Pain Scale Pain Intensity 7 - Danyel Coma Score Best Eye Response ([place]): (4) open spontaneously Best Verbal Response (Danyel): (5) oriented Best Motor Response (Danyel): (6) obeys commands Danyel Total: 15 - Physical Exam General Appearance: no apparent distress Eye Exam: bilateral eye: normal inspection, PERRL, EOMI ENT Exam: airway nml, other (2-3 mm superficial laceration on the right side of the upper lip, mild swelling, do deformity or facial swelling.), No dental injury Neck Exam: supple, trachea midline, full range of motion, normal alignment, normal inspection, tenderness (mild lower paracervical tenderness, bilaterally) , No focal neuro deficit, No mid-line tenderness, No JVD Cardiovascular/Respiratory Exam: chest non-tender, normal breath sounds, regular rate/rhythm, heart sounds normal, no ecchymosis, no JVD, no M/R/G Gastrointestinal/Abdominal Exam: soft, non tender, no distention, no mass, no guarding, no ecchymosis Back Exam: normal inspection, normal range of motion, No CVA tenderness Extremity Exam: normal range of motion, normal inspection, normal capillary refill 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, 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, 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 Exam: normal hearing, normal speech Motor/Sensory Exam: no motor deficit Skin Exam: normal color, warm, dry Lymphatic Exam: No adenopathy SpO2 Interpretation: normal - Radiology Exams Hand X-ray Interpretation: Interpreted by me, Negative Wrist X-ray Interpretation: Interpreted by me, Negative - CT Exams Head CT Interpretation: Negative Cervical Spine CT Interpretation: Negative Maxillofacial Bones CT Interpretation: Negative Ordered Tests: Active Orders 24 hr Category Date Time Status CERVICAL SPINE WO CONTRAST [CT] Stat Exams 02/24/17 01:42 Taken FACIAL BONES WO CONTRAST [CT] Stat Exams 02/24/17 01:42 Taken HAND (MINIMUM 3 VIEWS) Stat Exams 02/24/17 02:55 Taken HEAD WITHOUT CONTRAST [CT] Stat Exams 02/24/17 01:42 Taken WRIST (MIN 3 VIEWS) Stat Exams 02/24/17 02:55 Taken Medication Summary Discontinued Medications Generic Name Dose Route Start Last Admin Trade Name Aquiles PRN Reason Stop Dose Admin Ibuprofen 400 mg 02/24/17 01:42 02/24/17 01:54 Motrin 400 Mg PO 02/24/17 01:43 400 mg STAT ONE Administration Ibuprofen Confirm 02/24/17 01:52 Motrin 400 Mg Administered 02/24/17 01:53 Dose 400 mg .ROUTE .STK-MED ONE - Progress Progress: improved Progress Note: 02/24/17 03:04 Pt is resting comfortably, no sign of severe pain or distress. Alert and oriented x4, not lethargic. - Departure Time of Disposition: 03:05 Departure Disposition: Home Clinical Impression: Facial contusion Qualifiers: Encounter type: initial encounter Qualified Code(s): S00.83XA - Contusion of other part of head, initial encounter Condition: Stable Critical Care Time: No Referrals: VIKRAM ALVARADO FNP [Primary Care Provider] - Additional Instructions: Rest x 1-2 days, drink more fluids, return if severe pain, nausea, vomiting, lethargy
--- NOTE | 2017-02-24 09:52 | XRAY ---
Indication: Pain following fall. Comparison: January 16, 2017. 3 views of the right wrist demonstrate stable degenerative changes of the first metacarpal multangular articulation and radiocarpal degenerative joint space narrowing. No new/acute findings.
--- NOTE | 2017-02-24 09:52 | XRAY ---
Indication: Pain following fall. Comparison: January 16, 2017. 3 views of the right hand demonstrate stable degenerative changes of the first metacarpal multangular articulation and radiocarpal joint space narrowing. No new/acute findings.
--- NOTE | 2017-02-24 09:54 | XRAY ---
Indication: Pain following fall. Multiple contiguous axial images obtained through the head without contrast. Comparison: None Several images slightly degraded by motion artifact. Grossly normal appearing brain parenchyma, ventricles, and bony calvarium. Visualized paranasal sinuses and mastoid air cells are clear. CT facial bones and CT cervical spine reported separately. Impression: Minimal motion artifact. No gross acute intracranial abnormalities or fracture. Comment: Preliminary interpretation was made by [facility]. No discrepancy. CT DI 50.75
--- NOTE | 2017-02-24 09:56 | XRAY ---
Indication: Pain following fall. Multiple contiguous axial images obtained through the cervical spine. Sagittal and coronal reformatted images obtained. Comparison: None Several images slightly degraded by motion artifact. No acute fracture, suspicious bony lesions, or spinal canal stenosis. Mild left C3-C4 degenerative facet hypertrophy. Sagittal and coronal reformatted images demonstrates straightening of the cervical lordosis, positional versus paraspinal spasm. Disc spaces maintained. No acute compression fracture, subluxation, or jumped facet. Normal appearing craniocervical junction. Visualized noncontrasted soft tissues including lung apices unremarkable. CT facial bones and CT head reported separately. Impression: 1. Minimal motion artifact. 2. Cervical lordotic straightening, positional versus paraspinal spasm. C3-C4 degenerative facet hypertrophy. 3. Negative for acute fracture/subluxation. Comment: Preliminary interpretation was made by [facility]. No discrepancy. CT DI 123.25
--- NOTE | 2017-02-24 09:59 | XRAY ---
Indication: Pain following fall. Multiple contiguous axial images obtained through the facial bones. Coronal reformatted images obtained. Comparison: None There are bilateral dental amalgams producing beam artifact. No acute fracture, suspicious bony lesions, or radiopaque foreign body. Orbits including roof, mcadams, and floors intact. Paranasal sinuses and nasal passages clear. Minimal nasal septal deviation to the left. Visualized noncontrasted soft tissues unremarkable. CT head and CT cervical spine reported separately. Impression: Negative CT facial bones. Comment: Preliminary interpretation was made by [facility]. No discrepancy. CT DI 59.47
== END 2017-02-24 03:38 | disposition home or self-care (01) ==
LOC: ED 01:27
DX: S00.83XA Contusion of other part of head, initial encounter (principal); W18.30XA Fall on same level, unspecified, initial encounter; S01.511A Laceration without foreign body of lip, initial encounter; M54.2 Cervicalgia; M79.641 Pain in right hand; Z79.899 Other long term (current) drug therapy; I10 Essential (primary) hypertension; E78.00 Pure hypercholesterolemia, unspecified; E11.9 Type 2 diabetes mellitus without complications; F41.9 Anxiety disorder, unspecified
CPT/HCPCS: 70450; 70486; 72125; 73110; 73130; 99285; A9270-GY

== ENCOUNTER 2017-03-14 22:25 | Emergency (ER) | payer BC ==
--- NOTE | 2017-03-14 22:49 | ERPHSYRPT ---
- History of Present Illness Time Seen by Provider: 03/14/17 22:39 Source: patient Exam Limitations: no limitations Patient Subjective Stated Complaint: pt states she went to bed with a headache last night and it has just gotten worse since Triage Nursing Assessment: pt alert and oriented, answers questions approp. pt ambulatory with steady gait noted. respirations nonlabored with lungs cta. skin pink warm and dry. bilat uper andlower ext strength wnl. pupils equal and reactive. no facial droop noted. Physician History: 46 y/o female comes back to the ER with complaints of bifrontal headache, neck pain, right shoulder pain and right arm pain that started yesterday. Pt arrives with a BP of 158/101 and has been off her BP meds since Monday. Pt describes the pain as aching, 8/10, constant and not relieved by motrin and flexeril. Pt denies any fever, chills, nausea, vomiting, dizziness or blurry vision. Of note , patient still is under a great deal of stress. Timing/Duration: yesterday Quality: aching Head Pain Location: frontal, temporal Severity of Pain-Max: severe Severity of Pain-Current: severe Recent Head Trauma: no recent headache/trauma Associated Symptoms: No nasal congestion, No nasal drainage, No vision changes Previous symptoms: same symptoms as today Allergies/Adverse Reactions: morphine Allergy (Verified 03/14/17 22:40) prochlorperazine [From Compazine] Adverse Reaction (Verified 03/14/17 22:40) Home Medications: Doxepin HCl 300 mg PO DAILY 11/14/16 [History] Liraglutide [Victoza 2-Jonatan] 9 mg PO DAILY 11/14/16 [History] Lisinopril 20 mg [Zestril 20 MG] 1 tab DAILY 11/14/16 [History] Oxcarbazepine 300 mg [Trileptal 300 MG Tablet] 600 mg DAILY 11/14/16 [ History] Venlafaxine HCl [Effexor Xr] 150 mg PO DAILY 11/14/16 [History] Esomeprazole Magnesium [Nexium] 20 mg PO DAILY 12/30/16 [History] Hx Tetanus, Diphtheria Vaccination/Date Given: Yes Hx Influenza Vaccination/Date Given: Yes Hx Pneumococcal Vaccination/Date Given: No Immunizations Up to Date: Yes - Review of Systems Constitutional: No Fever, No Chills Eyes: No Symptoms Ears, Nose, & Throat: No Symptoms Respiratory: No Cough, No Dyspnea Cardiac: No Chest Pain, No Edema, No Syncope Abdominal/Gastrointestinal: No Abdominal Pain, No Nausea, No Vomiting, No Diarrhea Genitourinary Symptoms: No Dysuria Musculoskeletal: No Back Pain, No Neck Pain Skin: No Rash Neurological: Headache, No Dizziness, No Focal Weakness, No Sensory Changes Psychological: No Symptoms Endocrine: No Symptoms All Other Systems: Reviewed and Negative - Past Medical History Pertinent Past Medical History: Yes Neurological History: Other ENT History: No Pertinent History Cardiac History: High Cholesterol, Hypertension Respiratory History: No Pertinent History Endocrine Medical History: No Pertinent History, Diabetes Type II Musculoskeletal History: Fractures, Arthritis, Fibromyalgia GI Medical History: GERD, Gallbladder Disease, Esophageal Disorder History: No Pertinent History Psycho-Social History: Bipolar, Anxiety Female Reproductive Disorders: Endometriosis Other Medical History: cluster headaches -dilate esophagus -hyponatremia - Past Surgical History Past Surgical History: Yes Gastrointestinal: Cholecystectomy Musculoskeletal: Other Female Surgical History: Hysterectomy Other Surgical History: right foot fracture, carpal tunnel and tendon repair to rt wrist - Social History Smoking Status: Current every day smoker How long have you smoked: 40yrs Exposure to second hand smoke: Yes Drug Use: none Patient Lives Alone: No - Female History Hx Last Menstrual Period: hyster Hx Now: No - Nursing Vital Signs Nursing Vital Signs: Initial Vital Signs Temperature 98.9 F 03/14/17 22:30 Pulse Rate 106 H 03/14/17 22:30 Respiratory Rate 20 03/14/17 22:30 Blood Pressure 152/101 03/14/17 22:30 O2 Sat by Pulse Oximetry 96 03/14/17 22:30 Pain Scale Pain Intensity 6 - Physical Exam General Appearance: mild distress Eye Exam: PERRL/EOMI Ears, Nose, Throat Exam: normal ENT inspection, moist mucous membranes Neck Exam: normal inspection, supple, full range of motion, No meningismus Respiratory Exam: normal breath sounds, lungs clear Cardiovascular Exam: regular rate/rhythm, normal heart sounds Gastrointestinal/Abdominal Exam: soft, normal bowel sounds, No tenderness, No distention Back Exam: normal inspection, normal range of motion 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, 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, 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 Exam: normal speech, PERRL, No facial droop Coordination/Gait Exam: normal cerebellar function Motor/Sensory Exam: no motor deficit, no sensory deficit Skin Exam: normal color, warm, dry, No rash SpO2: 96 - Course Nursing assessment & vital signs reviewed: Yes Ordered Tests: Medication Summary Discontinued Medications Generic Name Dose Route Start Last Admin Trade Name Aquiles PRN Reason Stop Dose Admin Clonidine 0.1 mg 03/14/17 22:51 03/14/17 22:59 Catapres 0.1 Mg PO 03/14/17 22:52 0.1 mg STAT ONE Administration Clonidine Confirm 03/14/17 22:57 Catapres 0.1 Mg Administered 03/14/17 22:58 Dose 0.1 mg .ROUTE .STK-MED ONE Hydromorphone HCl 1 mg 03/14/17 22:50 03/14/17 22:59 Hydromorphone 1 Mg/Ml Ampule IM 03/14/17 22:51 1 mg STAT ONE Administration Hydromorphone HCl Confirm 03/14/17 22:58 Hydromorphone 1 Mg/Ml Ampule Administered 03/14/17 22:59 Dose 1 mg .ROUTE .STK-MED ONE - Progress Progress: improved Progress Note: 03/15/17 00:25 Pt feels better after receiving dilaudid 1mg IM X 1 dose. BP has come down to 148/100 and the patient will be given a dose of lisinopril that she has been off for the last few days. No indication for CT scan head since she has had recent imaging. Pt will be d/c home with a diagnosis of tension headache and was advised to F/U with PCP for BP refill. - Departure Time of Disposition: 00:28 Departure Disposition: Home Clinical Impression: Tension headache Hypertension Qualifiers: Hypertension type: essential hypertension Qualified Code(s): I10 - Essential ( primary) hypertension Condition: Stable Critical Care Time: No Referrals: VIKRAM ALVARADO FNP [Primary Care Provider] - Instructions: Headache, Adult (DC), High Blood Pressure (DC) Additional Instructions: Follow up with your primary care doctor for refill of your lisinopril prescription. Return to the ER if you should continue to have headache, neck pain, nausea, vomiting, dizziness or blurry vision.
[2017-03-14] MEDS ORDERED: Hydromorphone 1 mg/ml Ampule IM ONE (22:50)
[2017-03-14] MEDS ORDERED: Catapres 0.1 MG PO ONE (22:51)
[2017-03-14] MEDS ORDERED: Catapres 0.1 MG ONE (22:57)
[2017-03-14] MEDS ORDERED: Hydromorphone 1 mg/ml Ampule ONE (22:58)
[2017-03-15] MEDS ORDERED: Zestril 20 MG PO ONE (00:25)
[2017-03-15 00:51] VITALS: BP 152/85; PULSE 89; O2SAT 94
== END 2017-03-15 00:50 | disposition home or self-care (01) ==
LOC: ED 22:25
DX: G44.209 Tension-type headache, unspecified, not intractable (principal); I10 Essential (primary) hypertension; M54.2 Cervicalgia; M25.511 Pain in right shoulder; M79.601 Pain in right arm; Z79.899 Other long term (current) drug therapy
CPT/HCPCS: 96372; 99284; J1170; A9270-GY

== ENCOUNTER 2017-04-25 02:53 | Emergency (ER) | payer BC ==
--- NOTE | 2017-04-25 03:29 | ERPHSYRPT ---
- History of Present Illness Time Seen by Provider: 04/25/17 03:17 Source: patient Exam Limitations: no limitations Patient Subjective Stated Complaint: pt states she has had a migraine for approx 1 week. states her pain is in the top of her head Triage Nursing Assessment: pt alert and oriented, answers questions approp. pt ambulatory with steady gait noted. respirations nonlabored with lungs cta. skin pink warm and dry. pupils equal and reactive. bilat upper and lower ext strength wnl. Physician History: FOR THE PAST WEEK PT HAS HAD A CONSTANT VERTEX HEADACHE WITH A LEFT EARACHE SINCE YESTERDAY. PT HAS HAD THESE HEADACHES IN THE PAST AND HAS HAD A NORMAL CT HEAD THIS YEAR. PT DENIES FEVER, VOMITING, DIARRHEA, CHEST PAIN, SHORTNESS OF AIR, WEAKNESS, NUMBNESS. Allergies/Adverse Reactions: morphine Allergy (Verified 04/25/17 03:16) prochlorperazine [From Compazine] Adverse Reaction (Verified 04/25/17 03:16) Home Medications: Doxepin HCl 300 mg PO DAILY 11/14/16 [History] Liraglutide [Victoza 2-Jonatan] 9 mg PO DAILY 11/14/16 [History] Lisinopril 20 mg [Zestril 20 MG] 40 mg PO HS 11/14/16 [History] Oxcarbazepine 300 mg [Trileptal 300 MG Tablet] 600 mg DAILY 11/14/16 [ History] Venlafaxine HCl [Effexor Xr] 150 mg PO DAILY 11/14/16 [History] Esomeprazole Magnesium [Nexium] 20 mg PO DAILY 12/30/16 [History] Hx Tetanus, Diphtheria Vaccination/Date Given: Yes Hx Influenza Vaccination/Date Given: Yes Hx Pneumococcal Vaccination/Date Given: No Immunizations Up to Date: Yes - Review of Systems Constitutional: No Fever Ears, Nose, & Throat: Ear Pain Respiratory: No Dyspnea Cardiac: No Chest Pain Abdominal/Gastrointestinal: No Abdominal Pain, No Vomiting Neurological: Headache, No Focal Weakness, No Sensory Changes All Other Systems: Reviewed and Negative - Past Medical History Pertinent Past Medical History: Yes Neurological History: Migraines, Other ENT History: No Pertinent History Cardiac History: High Cholesterol, Hypertension Respiratory History: No Pertinent History Endocrine Medical History: No Pertinent History, Diabetes Type II Musculoskeletal History: Fractures, Arthritis, Fibromyalgia GI Medical History: GERD, Gallbladder Disease, Esophageal Disorder History: No Pertinent History Psycho-Social History: Bipolar, Anxiety Female Reproductive Disorders: Endometriosis Other Medical History: cluster headaches -dilate esophagus -hyponatremia - Past Surgical History Past Surgical History: Yes Gastrointestinal: Cholecystectomy Musculoskeletal: Other Female Surgical History: Hysterectomy Other Surgical History: right foot fracture, carpal tunnel and tendon repair to rt wrist - Social History Smoking Status: Current every day smoker How long have you smoked: 30yrs Exposure to second hand smoke: Yes Drug Use: none Patient Lives Alone: No - Female History Hx Last Menstrual Period: post Hx Now: No - Nursing Vital Signs Nursing Vital Signs: Initial Vital Signs Temperature 99.3 F 04/25/17 03:03 Pulse Rate 109 H 04/25/17 03:03 Respiratory Rate 18 04/25/17 03:03 O2 Sat by Pulse Oximetry 98 04/25/17 03:03 Pain Scale Pain Intensity 10 - Physical Exam General Appearance: alert Eye Exam: PERRL/EOMI Ears, Nose, Throat Exam: TMs normal, pharynx normal, moist mucous membranes Neck Exam: normal inspection Respiratory Exam: lungs clear Cardiovascular Exam: normal heart sounds Gastrointestinal/Abdomen Exam: soft, normal bowel sounds Back Exam: normal range of motion Extremity Exam: normal inspection, No pedal edema Neurologic Exam: alert, cooperative, sensation nml, No motor deficits, No motor weakness Skin Exam: warm, dry SpO2 Interpretation: normal SpO2: 98 Oxygen Delivery: Room Air - Course Nursing assessment & vital signs reviewed: Yes - Departure Time of Disposition: 03:32 Departure Disposition: Home Clinical Impression: MIGRAINE HEADACHE Condition: Stable Critical Care Time: No Referrals: VIKRAM ALVARADO FNP [Primary Care Provider] - Instructions: Headache, Adult (DC) Additional Instructions: FOLLOW UP WITH PRIVATE DOCTOR TOMORROW.
[2017-04-25] MEDS ORDERED: Hydromorphone 1 mg/ml Ampule IM ONE (03:31)
[2017-04-25] MEDS ORDERED: ZOFRAN ODT 4 MG PO ONE (03:31)
[2017-04-25] MEDS ORDERED: ZOFRAN ODT 4 MG ONE (03:34)
[2017-04-25] MEDS ORDERED: DILAUDID 2 MG INJECTION ONE (03:34)
[2017-04-25 03:57] VITALS: BP 173/92; PULSE 96; O2SAT 95
== END 2017-04-25 03:57 | disposition home or self-care (01) ==
LOC: ED 02:53
DX: G43.909 Migraine, unspecified, not intractable, without status migrainosus (principal); H92.02 Otalgia, left ear
CPT/HCPCS: 96372; 99284; J1170; Q0162

== ENCOUNTER 2017-05-23 20:38 | Emergency (ER) | payer BC ==
[2017-05-23] MEDS ORDERED: Zofran 4 MG/2 ML VIAL IV ONE (21:16)
[2017-05-23] MEDS ORDERED: Hydromorphone 1 mg/ml Ampule IV ONE (21:16)
[2017-05-23] MEDS ORDERED: Catapres 0.1 MG PO ONE (21:17)
[2017-05-23] MEDS ORDERED: DILAUDID 2 MG INJECTION ONE (21:26)
[2017-05-23] MEDS ORDERED: Catapres 0.1 MG ONE (21:26)
[2017-05-23] MEDS ORDERED: Zofran 4 MG/2 ML VIAL ONE (21:26)
--- NOTE | 2017-05-23 21:28 | ERPHSYRPT ---
- History of Present Illness Time Seen by Provider: 05/23/17 21:10 Source: patient Exam Limitations: no limitations Patient Subjective Stated Complaint: stressed out, headache for 3 days Triage Nursing Assessment: Pt A&O x3, came in stating that she is stressed out about her job, fathers health, and many other things, stated that she has had a a headache for 3 days, lungs clear, pulses normal, bp 178/130, pulse 114, stable gait, doesn't appear to be in any distress Physician History: 46 y/o female with history of anxiety, migraine headache and HTN comes to the ER with complaints of temporal and occipital headache for the last 3 days. Pt states that she has been under a tremendous amount of stress that has caused her to have headaches in the past. Pt describes the pain as throbbing, constant , 8/10, with radiation to neck and not relieved by excedrin, tylenol or valium. Pt also admits to nausea, but no vomiting, blurry vision, or photophobia. Pt has not been to a neurologist so far. Of note, patient has a BP of 173/120. Pt states that she has been compliant on her lisinopril. Timing/Duration: day(s) Quality: throbbing Head Pain Location: temporal, occipital Severity of Pain-Max: severe Severity of Pain-Current: severe Recent Head Trauma: frequent headaches Associated Symptoms: nausea/vomiting Previous symptoms: same symptoms as today Allergies/Adverse Reactions: cyclobenzaprine [From Flexeril] Allergy (Verified 05/23/17 21:00) morphine Allergy (Verified 05/23/17 21:00) prochlorperazine [From Compazine] Adverse Reaction (Verified 05/23/17 21:00) Home Medications: Doxepin HCl 300 mg PO DAILY 11/14/16 [History] Liraglutide [Victoza 2-Jonatan] 9 mg PO DAILY 11/14/16 [History] Lisinopril 20 mg [Zestril 20 MG] 40 mg PO HS 11/14/16 [History] Oxcarbazepine 300 mg [Trileptal 300 MG Tablet] 600 mg PO DAILY 11/14/16 [ History] Venlafaxine HCl [Effexor Xr] 150 mg PO DAILY 11/14/16 [History] Esomeprazole Magnesium [Nexium] 20 mg PO DAILY 12/30/16 [History] Buspirone HCl [Buspar] 15 mg PO TID 05/23/17 [History] Hx Tetanus, Diphtheria Vaccination/Date Given: Yes Hx Influenza Vaccination/Date Given: Yes Hx Pneumococcal Vaccination/Date Given: No - Review of Systems Constitutional: No Fever, No Chills Eyes: No Symptoms, No Photophobia Ears, Nose, & Throat: No Symptoms Respiratory: No Cough, No Dyspnea Cardiac: No Chest Pain, No Edema, No Syncope Abdominal/Gastrointestinal: No Abdominal Pain, No Nausea, No Vomiting, No Diarrhea Genitourinary Symptoms: No Dysuria Musculoskeletal: Neck Pain, No Back Pain Skin: No Rash Neurological: Headache, No Dizziness, No Focal Weakness, No Sensory Changes, No Speech Changes Psychological: No Symptoms Endocrine: No Symptoms All Other Systems: Reviewed and Negative - Past Medical History Pertinent Past Medical History: Yes Neurological History: Migraines, Other ENT History: No Pertinent History Cardiac History: High Cholesterol, Hypertension Respiratory History: No Pertinent History Endocrine Medical History: No Pertinent History, Diabetes Type II Musculoskeletal History: Fractures, Arthritis, Fibromyalgia GI Medical History: GERD, Gallbladder Disease, Esophageal Disorder History: No Pertinent History Psycho-Social History: Bipolar, Anxiety Female Reproductive Disorders: Endometriosis Other Medical History: cluster headaches -dilate esophagus -hyponatremia - Past Surgical History Past Surgical History: Yes Gastrointestinal: Cholecystectomy Musculoskeletal: Other Female Surgical History: Hysterectomy Other Surgical History: right foot fracture, carpal tunnel and tendon repair to rt wrist - Social History Smoking Status: Current every day smoker How long have you smoked: 30yrs Exposure to second hand smoke: Yes Drug Use: none Patient Lives Alone: No - Female History Hx Now: No - Nursing Vital Signs Nursing Vital Signs: Initial Vital Signs Temperature 98.2 F 05/23/17 20:44 Pulse Rate 108 H 05/23/17 20:44 Blood Pressure 178/130 05/23/17 20:44 O2 Sat by Pulse Oximetry 95 05/23/17 20:44 Pain Scale Pain Intensity 9 - Physical Exam General Appearance: mild distress, anxiety Eye Exam: PERRL/EOMI Ears, Nose, Throat Exam: normal ENT inspection, moist mucous membranes Neck Exam: normal inspection, supple, full range of motion, No non-tender, No meningismus Respiratory Exam: normal breath sounds, lungs clear Cardiovascular Exam: regular rate/rhythm, normal heart sounds Gastrointestinal/Abdominal Exam: soft, No tenderness, No distention Back Exam: normal inspection, normal range of motion 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, 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, 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 Exam: normal speech, PERRL, No facial droop Coordination/Gait Exam: normal cerebellar function Motor/Sensory Exam: no motor deficit, no sensory deficit Skin Exam: normal color, warm, dry, No rash SpO2: 95 Oxygen Delivery: Room Air - Course Nursing assessment & vital signs reviewed: Yes Ordered Tests: Medication Summary Discontinued Medications Generic Name Dose Route Start Last Admin Trade Name Aquiles PRN Reason Stop Dose Admin Clonidine 0.1 mg 05/23/17 21:17 Catapres 0.1 Mg PO 05/23/17 21:18 STAT ONE Hydromorphone HCl 1 mg 05/23/17 21:16 Hydromorphone 1 Mg/Ml Ampule IV 05/23/17 21:17 STAT ONE Ondansetron HCl 4 mg 05/23/17 21:16 Zofran 4 Mg/2 Ml Vial IV 05/23/17 21:17 STAT ONE - Progress Progress: improved Progress Note: 05/23/17 21:24 Pt will be given a 1 time dose of dilaudid, zofran as well as clonidine for blood pressure. I have reviewed the patient's chart and she has been to the ER multiple times for the same reason. Pt has mostly received narcotics since she reports that she has tried anti-inflammatories and acetaminophen that have not helped. Pt states that she has not seen a neurologist so far. Pt was advised that she needs to see a neurologist because narcotic use can cause rebound headache. Her anxiety will also need to be addressed by her PCP. I have also mentioned to the patient that she will need to follow up with her PCP for any additional narcotic use and that I would not feel comfortable with giving her opioids again without being evaluated by her PCP and neurologist. Pt has been giving a referral to neurologist, Dr De La Cruz. - Departure Time of Disposition: 21:27 Departure Disposition: Home Clinical Impression: Anxiety Migraine headache Qualifiers: Migraine type: unspecified Status migrainosus presence: without status migrainosus Intractability: not intractable Qualified Code(s): G43.909 - Migraine, unspecified, not intractable, without status migrainosus Hypertension Qualifiers: Hypertension type: essential hypertension Qualified Code(s): I10 - Essential ( primary) hypertension Condition: Stable Critical Care Time: No Referrals: VIKRAM ALVARADO FNP [Primary Care Provider] - ASHLIE DE LA CRUZ [CONSULTING PHYSICIAN] - Instructions: Headache, Adult (DC), Anxiety, Adult (DC), High Blood Pressure ( DC) Additional Instructions: Call Neurologist, Dr De La Cruz in the morning to set up an appointment. Follow up with your primary care doctor regarding any anxiety issues, blood pressure control and pain management for headaches.
[2017-05-23 22:29] VITALS: O2SAT 96
[2017-05-23] MEDS ORDERED: TORAdol 30 mg Injection IV ONE (22:32)
[2017-05-23] MEDS ORDERED: TORAdol 30 mg Injection ONE (22:35)
[2017-05-23 22:57] VITALS: BP 168/92; PULSE 88
== END 2017-05-23 22:53 | disposition home or self-care (01) ==
LOC: ED 20:38
DX: G43.909 Migraine, unspecified, not intractable, without status migrainosus (principal); I10 Essential (primary) hypertension; F41.9 Anxiety disorder, unspecified; R11.2 Nausea with vomiting, unspecified; Z79.899 Other long term (current) drug therapy
CPT/HCPCS: 36000; 96374; 96375; 99283; 99284; J1170; J1885; J2405; A9270-GY

== ENCOUNTER 2017-08-03 05:21 | Emergency (ER) | payer BC ==
[2017-08-03 05:32] VITALS: O2SAT 97
[2017-08-03] MEDS ORDERED: TORAdol 30 mg Injection IV ONE (06:11)
[2017-08-03] MEDS ORDERED: Sodium Chloride 0.9% 1000 ML 1,000 ML IV STA (06:11)
[2017-08-03] MEDS ORDERED: Reglan 10 MG/2 ML IV ONE (06:11)
[2017-08-03] MEDS ORDERED: BENADRYL 50 MG/ML IV ONE (06:11)
--- NOTE | 2017-08-03 06:17 | ERPHSYRPT ---
- History of Present Illness Source: patient Exam Limitations: no limitations Patient Subjective Stated Complaint: pt is alert and oriented. pt is ambulatory. pt comes in with complaint of headache for the past 4 days and a "fibromyalgia flare up". pt states that her pain is a 9 on a 1-10 scale. pt PERLLA. no one sided weakness noted. 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 Triage Nursing Assessment: see above Timing/Duration: day(s) (3) Quality: sharpness, throbbing Head Pain Location: occipital Severity of Pain-Max: severe Severity of Pain-Current: severe Recent Head Trauma: no recent headache/trauma, frequent headaches Modifying Factors: Improves With: other (none) Associated Symptoms: denies symptoms Previous symptoms: same symptoms as today Hx Tetanus, Diphtheria Vaccination/Date Given: Yes Hx Influenza Vaccination/Date Given: Yes Hx Pneumococcal Vaccination/Date Given: No Immunizations Up to Date: Yes <FRANCIS MARCELO - Last Filed: 08/03/17 07:35> <ZAC ARORA - Last Filed: 08/03/17 09:07> - History of Present Illness Time Seen by Provider: 08/03/17 06:04 Physician History: C/o occipital headaches x 3 days, increased since 4 AM today, nauseated, denies vomiting, fever, chills, focal weakness, visual changes, other complaints. ( FRANCIS MARCELO) Allergies/Adverse Reactions: cyclobenzaprine [From Flexeril] Allergy (Verified 05/23/17 21:00) morphine Allergy (Verified 05/23/17 21:00) prochlorperazine [From Compazine] Adverse Reaction (Verified 05/23/17 21:00) Home Medications: Doxepin HCl 300 mg PO DAILY 11/14/16 [History] Liraglutide [Victoza 2-Jonatan] 9 mg PO DAILY 11/14/16 [History] Lisinopril 20 mg [Zestril 20 MG] 40 mg PO HS 11/14/16 [History] Oxcarbazepine 300 mg [Trileptal 300 MG Tablet] 600 mg PO DAILY 11/14/16 [ History] Venlafaxine HCl [Effexor Xr] 150 mg PO DAILY 11/14/16 [History] Esomeprazole Magnesium [Nexium] 20 mg PO DAILY 12/30/16 [History] Buspirone HCl [Buspar] 15 mg PO TID 05/23/17 [History] Carisoprodol 350 mg [Soma 350 mg] 350 mg PO BID 08/03/17 [History] Gabapentin 100 mg PO TID 08/03/17 [History] Tramadol HCl [Ultram 50 mg Tablet] 50 mg PO BID 08/03/17 [History] - Review of Systems Constitutional: No Symptoms Abdominal/Gastrointestinal: Nausea Neurological: Headache All Other Systems: Reviewed and Negative <FRANCIS MARCELO - Last Filed: 08/03/17 07:35> - Past Medical History Pertinent Past Medical History: Yes Neurological History: Migraines, Other ENT History: No Pertinent History Cardiac History: High Cholesterol, Hypertension Respiratory History: No Pertinent History Endocrine Medical History: No Pertinent History, Diabetes Type II Musculoskeletal History: Fractures, Arthritis, Fibromyalgia GI Medical History: GERD, Gallbladder Disease, Esophageal Disorder History: No Pertinent History Psycho-Social History: Anxiety, Bipolar, Depression Female Reproductive Disorders: Endometriosis Other Medical History: cluster headaches -dilate esophagus -hyponatremia - Past Surgical History Past Surgical History: Yes Neuro Surgical History: No Pertinent History Cardiac: Angioplasty Respiratory: No Pertinent History Gastrointestinal: Cholecystectomy Genitourinary: No Pertinent History Musculoskeletal: Other Female Surgical History: Hysterectomy Other Surgical History: right foot fracture, carpal tunnel and tendon repair to rt wrist - Social History Smoking Status: Current every day smoker How long have you smoked: 30yrs Exposure to second hand smoke: Yes Drug Use: none Patient Lives Alone: No - Female History Hx Now: No <FRANCIS MARCELO - Last Filed: 08/03/17 07:35> - Physical Exam General Appearance: no apparent distress Eye Exam: PERRL/EOMI, eyes nml inspection Ears, Nose, Throat Exam: normal ENT inspection, moist mucous membranes Neck Exam: normal inspection, non-tender, supple, No mass, No carotid bruit, No JVD Respiratory Exam: normal breath sounds, lungs clear, airway intact Cardiovascular Exam: regular rate/rhythm, normal heart sounds, normal peripheral pulses, No murmur Gastrointestinal/Abdominal Exam: soft, normal bowel sounds Back Exam: normal inspection, No CVA tenderness Extremity Exam: normal inspection 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, 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 data collector Exam: normal hearing, normal speech, PERRL, No facial droop Coordination/Gait Exam: normal gait, normal cerebellar function Motor/Sensory Exam: no motor deficit Skin Exam: normal color, warm, dry, No rash Lymphatic Exam: No adenopathy SpO2 Interpretation: normal SpO2: 97 Oxygen Delivery: Room Air <FRANCIS MARCELO - Last Filed: 08/03/17 07:35> - Nursing Vital Signs Nursing Vital Signs: Initial Vital Signs Temperature 98.9 F 08/03/17 05:21 Pulse Rate 108 H 08/03/17 05:21 Respiratory Rate 16 08/03/17 05:21 Blood Pressure 165/116 08/03/17 05:21 O2 Sat by Pulse Oximetry 97 08/03/17 05:21 Pain Scale Pain Intensity 9 - Course Nursing assessment & vital signs reviewed: Yes - CT Exams Head CT Interpretation: Negative, Tele-radiologist Report <ZAC ARORA - Last Filed: 08/03/17 09:07> Ordered Tests: Active Orders 24 hr Category Date Time Status IV Insertion STAT Care 08/03/17 06:11 Active HEAD WITHOUT CONTRAST [CT] Stat Exams 08/03/17 06:12 Taken CBC W DIFF Stat Lab 08/03/17 06:23 Completed CMP Stat Lab 08/03/17 06:23 Completed Erythrocyte Sedimentation Rate Stat Lab 08/03/17 06:23 Completed PROTIME WITH INR Stat Lab 08/03/17 06:23 Completed UA W/RFX UR CULTURE Stat Lab 08/03/17 06:50 Completed Urine Triage Profile Stat Lab 08/03/17 06:12 Completed Medication Summary Discontinued Medications Generic Name Dose Route Start Last Admin Trade Name Aquiles PRN Reason Stop Dose Admin Diphenhydramine HCl 25 mg 08/03/17 06:11 08/03/17 06:40 Benadryl 50 Mg/Ml IV 08/03/17 06:12 25 mg STAT ONE Administration Diphenhydramine HCl Confirm 08/03/17 06:32 Benadryl 50 Mg/Ml Administered 08/03/17 06:33 Dose 50 mg .ROUTE .STK-MED ONE Sodium Chloride 1,000 mls @ 999 mls/hr 08/03/17 06:11 08/03/17 06:41 Sodium Chloride 0.9% 1000 Ml IV 08/03/17 07:11 999 mls/hr .Q1H1M STA Administration Sodium Chloride Confirm 08/03/17 06:33 Sodium Chloride 0.9% 1000 Ml Administered 08/03/17 06:34 Dose 1,000 mls @ ud .ROUTE .STK-MED ONE Ketorolac Tromethamine 30 mg 08/03/17 06:11 08/03/17 06:40 Toradol 30 Mg Injection IV 08/03/17 06:12 30 mg STAT ONE Administration Ketorolac Tromethamine Confirm 08/03/17 06:32 Toradol 30 Mg Injection Administered 08/03/17 06:33 Dose 30 mg .ROUTE .STK-MED ONE Metoclopramide HCl 10 mg 08/03/17 06:11 08/03/17 06:40 Reglan 10 Mg/2 Ml IV 08/03/17 06:12 10 mg STAT ONE Administration Metoclopramide HCl Confirm 08/03/17 06:33 Reglan 10 Mg/2 Ml Administered 08/03/17 06:34 Dose 10 mg .ROUTE .STK-MED ONE Lab/Rad Data: Laboratory Result Diagrams 08/03/17 06:23 08/03/17 06:23 Laboratory Results 08/03/17 08/03/17 08/03/17 Range/Units 06:50 06:23 06:23 WBC (4.0-10.5) K/mm3 RBC (4.1-5.4) M/mm3 Hgb (12.0-16.0) gm/dl Hct (35-47) % MCV (78-100) fl MCH (26-32) pg MCHC (32-36) g/dl RDW (11.5-14.0) % Plt Count (150-450) K/mm3 MPV (6-9.5) fl Gran % (36.0-66.0) % Eos # (Auto) (0-0.5) Absolute Lymphs (auto) (1.0-4.6) Absolute Monos (auto) (0.0-1.3) Lymphocytes % (24.0-44.0) % Monocytes % (0.0-12.0) % Eosinophils % (0.00-5.0) % Basophils % (0.0-0.4) % Absolute Granulocytes (1.4-6.9) Basophils # (0-0.4) ESR (0-20) mm/hr PT 11.6 (9.95-12.35) SECONDS INR 1.00 (0.8-3.0) Sodium 132 L (137-145) mmol/L Potassium 3.6 (3.5-5.1) mmol/L Chloride 98 (98-107) mmol/L Carbon Dioxide 25 (22-30) mmol/L Anion Gap 12.9 (5-15) MEQ/L BUN 10 (7-17) mg/dL Creatinine 0.63 (0.52-1.04) mg/dL Estimated GFR > 60.0 ML/MIN Glucose 100 (74-106) mg/dL Calcium 9.3 (8.4-10.2) mg/dL Total Bilirubin 0.10 L (0.2-1.3) mg/dL AST 16 (14-36) U/L ALT 19 (0-35) U/L Alkaline Phosphatase 117 (38-126) U/L Serum Total Protein 7.8 (6.3-8.2) g/dL Albumin 4.2 (3.5-5.0) g/dL Ur Collection Type CLEAN CATCH Urine Color YELLOW (YELLOW) Urine Appearance CLEAR (CLEAR) Urine pH 6.0 (5-6) Ur Specific [place] 1.020 (1.005-1.025) Urine Protein NEGATIVE (Negative) Urine Ketones NEGATIVE (NEGATIVE) Urine Blood NEGATIVE (0-5) Stanley/ul Urine Nitrite NEGATIVE (NEGATIVE) Urine Bilirubin NEGATIVE (NEGATIVE) Urine Urobilinogen NORMAL (0-1) mg/dL Ur Leukocyte Esterase NEGATIVE (NEGATIVE) Urine Culture Reflexed NO (NO) Urine Glucose NEGATIVE (NEGATIVE) mg/dL Urine Opiates Level (NEGATIVE) Ur Methadone (NEGATIVE) Urine Barbiturates (NEGATIVE) Ur Phencyclidine (PCP) (NEGATIVE) Urine Amphetamine (NEGATIVE) U Benzodiazepine Level (NEGATIVE) Urine Cocaine (NEGATIVE) Urine Marijuana (THC) (NEGATIVE) Specimen Received 08/03/17 0650 08/03/17 08/03/17 Range/Units 06:23 06:12 WBC 11.0 H (4.0-10.5) K/mm3 RBC 4.51 (4.1-5.4) M/mm3 Hgb 12.7 (12.0-16.0) gm/dl Hct 36.8 (35-47) % MCV 81.6 (78-100) fl MCH 28.2 (26-32) pg MCHC 34.5 (32-36) g/dl RDW 14.4 H (11.5-14.0) % Plt Count 357 (150-450) K/mm3 MPV 8.8 (6-9.5) fl Gran % 54.3 (36.0-66.0) % Eos # (Auto) 0.35 (0-0.5) Absolute Lymphs (auto) 3.88 (1.0-4.6) Absolute Monos (auto) 0.76 (0.0-1.3) Lymphocytes % 35.3 (24.0-44.0) % Monocytes % 6.9 (0.0-12.0) % Eosinophils % 3.2 (0.00-5.0) % Basophils % 0.3 (0.0-0.4) % Absolute Granulocytes 5.96 (1.4-6.9) Basophils # 0.03 (0-0.4) ESR 23 H (0-20) mm/hr PT (9.95-12.35) SECONDS INR (0.8-3.0) Sodium (137-145) mmol/L Potassium (3.5-5.1) mmol/L Chloride (98-107) mmol/L Carbon Dioxide (22-30) mmol/L Anion Gap (5-15) MEQ/L BUN (7-17) mg/dL Creatinine (0.52-1.04) mg/dL Estimated GFR ML/MIN Glucose (74-106) mg/dL Calcium (8.4-10.2) mg/dL Total Bilirubin (0.2-1.3) mg/dL AST (14-36) U/L ALT (0-35) U/L Alkaline Phosphatase (38-126) U/L Serum Total Protein (6.3-8.2) g/dL Albumin (3.5-5.0) g/dL Ur Collection Type Urine Color (YELLOW) Urine Appearance (CLEAR) Urine pH (5-6) Ur Specific [place] (1.005-1.025) Urine Protein (Negative) Urine Ketones (NEGATIVE) Urine Blood (0-5) Stanley/ul Urine Nitrite (NEGATIVE) Urine Bilirubin (NEGATIVE) Urine Urobilinogen (0-1) mg/dL Ur Leukocyte Esterase (NEGATIVE) Urine Culture Reflexed (NO) Urine Glucose (NEGATIVE) mg/dL Urine Opiates Level NEGATIVE (NEGATIVE) Ur Methadone NEGATIVE (NEGATIVE) Urine Barbiturates NEGATIVE (NEGATIVE) Ur Phencyclidine (PCP) NEGATIVE (NEGATIVE) Urine Amphetamine NEGATIVE (NEGATIVE) U Benzodiazepine Level NEGATIVE (NEGATIVE) Urine Cocaine NEGATIVE (NEGATIVE) Urine Marijuana (THC) NEGATIVE (NEGATIVE) Specimen Received - Progress Progress: improved <FRANCIS MARCELO - Last Filed: 08/03/17 07:35> <ZAC ARORA - Last Filed: 08/03/17 09:07> - Progress Progress Note: 08/03/17 09:[address] was normal. Patient resting very comfortably, sleeping at time of reexamination. We'll discharge home (ZAC ARORA) <FRANCIS MARCELO - Last Filed: 08/03/17 07:35> - Departure Time of Disposition: 09:05 Departure Disposition: Home Critical Care Time: No <ZAC ARORA - Last Filed: 08/03/17 09:07> - Departure Clinical Impression: Tension headache Condition: Stable Referrals: VIKRAM ALVARADO FNP [Primary Care Provider] - Instructions: Headache, Adult (DC) Additional Instructions: May take Motrin/Tylenol for headaches. Follow-up with your doctor in 1-2 days Return for worse headaches, dizziness, weakness or any problems
[2017-08-03 06:30] LABS: BASOPHIL % 0.3 % (0.0-0.4); Basophil (Absolute #) 0.03 (0-0.4); Eosinophil % 3.2 % (0.00-5.0); Eosinophil (Absolute #) 0.35 (0-0.5); Granulocyte Absolute (ANC) 5.96 (1.4-6.9); Granulocytes % 54.3 % (36.0-66.0); Hematocrit 36.8 % (35-47); Hemoglobin 12.7 gm/dl (12.0-16.0); Lymphocyte (Absolute #) 3.88 (1.0-4.6); Lymphocytes % 35.3 % (24.0-44.0); Mean Cell Volume 81.6 fl (78-100); Mean Corpuscular Hemoglobin 28.2 pg (26-32); Mean Corpuscular Hgb Concent. 34.5 g/dl (32-36); Mean Platelet Volume 8.8 fl (6-9.5); Monocyte (Absolute #) 0.76 (0.0-1.3); Monocytes % 6.9 % (0.0-12.0); Platelet Count 357 K/mm3 (150-450); Red Blood Count 4.51 M/mm3 (4.1-5.4); Red Cell Distribution Width 14.4 % (11.5-14.0)
[2017-08-03] MEDS ORDERED: TORAdol 30 mg Injection ONE (06:32)
[2017-08-03] MEDS ORDERED: BENADRYL 50 MG/ML ONE (06:32)
[2017-08-03] MEDS ORDERED: Sodium Chloride 0.9% 1000 ML 1,000 ML ONE (06:33)
[2017-08-03] MEDS ORDERED: Reglan 10 MG/2 ML ONE (06:33)
[2017-08-03 06:44] LABS: ALBUMIN 4.2 g/dL (3.5-5.0); ALKALINE PHOSPHATASE 117 U/L (38-126); ANION GAP 12.9 MEQ/L (5-15); BLOOD UREA NITROGEN 10 mg/dL (7-17); CHLORIDE 98 mmol/L (98-107); Calcium 9.3 mg/dL (8.4-10.2); Carbon Dioxide 25 mmol/L (22-30); Creatinine 1 0.63 mg/dL (0.52-1.04); Glucose 100 mg/dL (74-106); Potassium 3.6 mmol/L (3.5-5.1); SGOT/AST 16 U/L (14-36); SGPT/ALT 19 U/L (0-35); SODIUM 132 mmol/L (137-145); Total Protein 7.8 g/dL (6.3-8.2)
[2017-08-03 06:46] LABS: Erythrocyte Sedimentation Rate 23 mm/hr (0-20)
[2017-08-03 07:02] LABS: Appearance CLEAR (CLEAR); Bilirubin NEGATIVE (NEGATIVE); Blood NEGATIVE Ery/ul (0-5); Glucose NEGATIVE (NEGATIVE); Ketones NEGATIVE (NEGATIVE); Leukocyte Esterase NEGATIVE (NEGATIVE); Nitrite NEGATIVE (NEGATIVE); Protein,Urine Dip NEGATIVE (Negative); Urobilinogen NORMAL mg/dL (0-1)
[2017-08-03 07:18] LABS: Amphetamine,Urine NEGATIVE (NEGATIVE); Barbiturate,Urine NEGATIVE (NEGATIVE); Benzodiazepine,Urine NEGATIVE (NEGATIVE); Cocaine,Urine NEGATIVE (NEGATIVE); Methadone,Urine NEGATIVE (NEGATIVE); Opiate,Urine NEGATIVE (NEGATIVE); PCP,Urine NEGATIVE (NEGATIVE); THC,Urine NEGATIVE (NEGATIVE)
[2017-08-03 07:41] VITALS: BP 116/79; PULSE 85
--- NOTE | 2017-08-03 09:20 | XRAY ---
Indication: Headache. No known injury. History of fibromyalgia. Multiple contiguous axial images obtained through the head without contrast. Comparison: February 24, 2017. Again normal appearing brain parenchyma, ventricles, and bony calvarium. Visualized paranasal sinuses and mastoid air cells are clear. Impression: Normal CT head without contrast exam. CT DI 60.51
== END 2017-08-03 09:26 | disposition home or self-care (01) ==
LOC: ED 05:21
DX: G44.209 Tension-type headache, unspecified, not intractable (principal); R11.0 Nausea; Z79.899 Other long term (current) drug therapy
CPT/HCPCS: 36000; 36415; 70450; 80053; 80307; 81002; 85025; 85610; 85652; 96360; 96374; 96375; 99284; J1200; J1885

== ENCOUNTER 2018-06-08 23:05 | Emergency (ER) | payer BC ==
[2018-06-08] MEDS ORDERED: Zofran 4 MG/2 ML VIAL IV ONE (23:59)
[2018-06-08] MEDS ORDERED: Sodium Chloride 0.9% 1000 ML 1,000 ML IV STA (23:59)
[2018-06-09] MEDS ORDERED: ANTIVERT 25 MG PO ONE (00:02)
[2018-06-09] MEDS ORDERED: Hydromorphone 1 mg/ml Ampule IV ONE ×2 (00:03→02:16)
[2018-06-09] MEDS ORDERED: Zofran 4 MG/2 ML VIAL ONE (00:10)
[2018-06-09] MEDS ORDERED: ANTIVERT 25 MG ONE (00:10)
[2018-06-09] MEDS ORDERED: Sodium Chloride 0.9% 1000 ML 1,000 ML ONE (00:11)
[2018-06-09] MEDS ORDERED: Hydromorphone 1 mg/ml Ampule ONE ×2 (00:11→02:28)
[2018-06-09 00:56] LABS: BASOPHIL % 0.2 % (0.0-0.4); Basophil (Absolute #) 0.02 (0-0.4); Eosinophil (Absolute #) 0.09 (0-0.5); Granulocyte Absolute (ANC) 5.59 (1.4-6.9); Granulocytes % 60.4 % (36.0-66.0); Hematocrit 34.7 % (35-47); Hemoglobin 11.5 gm/dl (12.0-16.0); Lymphocyte (Absolute #) 2.84 (1.0-4.6); Lymphocytes % 30.7 % (24.0-44.0); Mean Cell Volume 86.5 fl (78-100); Mean Corpuscular Hgb Concent. 33.1 g/dl (32-36); Mean Platelet Volume 8.9 fl (6-9.5); Monocyte (Absolute #) 0.71 (0.0-1.3); Monocytes % 7.7 % (0.0-12.0); Platelet Count 308 K/mm3 (150-450); Red Blood Count 4.01 M/mm3 (4.1-5.4); Red Cell Distribution Width 14.5 % (11.5-14.0); White Blood Count 9.3 K/mm3 (4.0-10.5)
[2018-06-09 01:00] LABS: Mean Corpuscular Hemoglobin 28.6 pg (26-32)
[2018-06-09 01:08] LABS: ALBUMIN 3.8 g/dL (3.5-5.0); ALKALINE PHOSPHATASE 98 U/L (38-126); ANION GAP 12.4 MEQ/L (5-15); BLOOD UREA NITROGEN 9 mg/dL (7-17); CHLORIDE 106 mmol/L (98-107); Calcium 9.2 mg/dL (8.4-10.2); Carbon Dioxide 25 mmol/L (22-30); Creatinine 1 0.81 mg/dL (0.52-1.04); Glucose 150 mg/dL (74-106); Potassium 3.3 mmol/L (3.5-5.1); SGOT/AST 16 U/L (14-36); SGPT/ALT 19 U/L (0-35); SODIUM 140 mmol/L (137-145); Total Protein 7.2 g/dL (6.3-8.2)
[2018-06-09 01:41] LABS: Appearance CLEAR (CLEAR); Bilirubin NEGATIVE (NEGATIVE); Blood NEGATIVE Ery/ul (0-5); Epithelial Cells RARE /HPF (FEW); Glucose NEGATIVE (NEGATIVE); Ketones NEGATIVE (NEGATIVE); Leukocyte Esterase NEGATIVE (NEGATIVE); Mucus SLIGHT /HPF (NEGATIVE); Nitrite NEGATIVE (NEGATIVE); Protein,Urine Dip NEGATIVE (Negative); Specific Gravity 1.008 (1.005-1.025); Urobilinogen NEGATIVE mg/dL (0-1); WBC 0-2 /HPF (0-5)
[2018-06-09 02:17] LABS: Erythrocyte Sedimentation Rate 46 mm/hr (0-20)
--- NOTE | 2018-06-09 04:03 | ERPHSYRPT ---
- History of Present Illness Source: patient Exam Limitations: no limitations Patient Subjective Stated Complaint: Pt states that she came to ER around 8 pm this evening she was having supper and she starting feeling dizzy, than 8:30 she started to have a severe Migrane headache. Around 10pm the she started to have pain down her neck and in her shoulder pain in the whole right side of her head, pt states that she feels as if she is spinning like she just got off a go round ride. Pt tomás seeing spots or blurred vision, when opens eyes she feels as if she is spinning. Pt states that has happened before couple years ago but she had vomiting with the other symptoms. Triage Nursing Assessment: Pt states that she came to ER around 8 pm this evening she was having supper and she starting feeling dizzy, than 8:30 she started to have a severe Migrane headache. Around 10pm the she started to have pain down her neck and in her shoulder pain in the whole right side of her head , pt states that she feels as if she is spinning like she just got off a go round ride. Pt tomás seeing spots or blurred vision, when opens eyes she feels as if she is spinning. Pt states that has happened before couple years ago but she had vomiting with the other symptoms. Vitals are within normal limits at this time Physician History: Pt is a 48 y/o female that presented to the ED with a migraine headache with vertigo. Pt states, she can't open her eyes, as she immediately getting nausiated, and feeling like she is on a [id number]. Pt denies F/C/S. No nucal rigidity. No SOB or cough. Timing/Duration: today Severity: moderate Baseline/Normal Cognition: alert 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 Current Cognition: alert 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 Associated Symptoms: nausea, headache, other (vertigo) Allergies/Adverse Reactions: cyclobenzaprine [From Flexeril] Allergy (Verified 06/08/18 23:48) morphine Allergy (Verified 06/08/18 23:48) prochlorperazine [From Compazine] Adverse Reaction (Verified 06/08/18 23:48) Home Medications: Doxepin HCl 300 mg PO DAILY 11/14/16 [History] Liraglutide [Victoza 2-Jonatan] 9 mg PO DAILY 11/14/16 [History] Lisinopril 20 mg [Zestril 20 MG] 40 mg PO HS 11/14/16 [History] Venlafaxine HCl [Effexor Xr] 150 mg PO DAILY 11/14/16 [History] Esomeprazole Magnesium [Nexium] 20 mg PO DAILY 12/30/16 [History] Buspirone HCl [Buspar] 15 mg PO TID 05/23/17 [History] Hx Tetanus, Diphtheria Vaccination/Date Given: Yes Hx Influenza Vaccination/Date Given: Yes (11/2017) Hx Pneumococcal Vaccination/Date Given: No Immunizations Up to Date: Yes - Review of Systems Constitutional: No Fever, No Chills Eyes: No Symptoms Ears, Nose, & Throat: No Symptoms Respiratory: No Cough, No Dyspnea Cardiac: No Chest Pain, No Edema, No Syncope Abdominal/Gastrointestinal: No Abdominal Pain, No Nausea, No Vomiting, No Diarrhea Musculoskeletal: No Back Pain, No Neck Pain Neurological: Headache, Vertigo Psychological: No Symptoms Endocrine: No Symptoms - Past Medical History Pertinent Past Medical History: Yes Neurological History: Migraines, Other ENT History: No Pertinent History Cardiac History: High Cholesterol, Hypertension Respiratory History: No Pertinent History Endocrine Medical History: No Pertinent History, Diabetes Type II Musculoskeletal History: Fractures, Arthritis, Fibromyalgia GI Medical History: GERD, Esophageal Disorder History: No Pertinent History Psycho-Social History: Anxiety, Bipolar, Depression Female Reproductive Disorders: Endometriosis Other Medical History: cluster headaches -dilate esophagus -hyponatremia - Past Surgical History Past Surgical History: Yes Neuro Surgical History: No Pertinent History Cardiac: Angioplasty Respiratory: No Pertinent History Gastrointestinal: Cholecystectomy Genitourinary: No Pertinent History Musculoskeletal: Other Female Surgical History: Hysterectomy Other Surgical History: right foot fracture, carpal tunnel and tendon repair to rt wrist, Left hand surgery - Social History Smoking Status: Current every day smoker How long have you smoked: 20 Exposure to second hand smoke: Yes Drug Use: none Patient Lives Alone: No - Nursing Vital Signs Nursing Vital Signs: Initial Vital Signs Temperature 98.8 F 06/08/18 23:31 Pulse Rate 96 H 06/08/18 23:31 Respiratory Rate 18 06/08/18 23:31 Blood Pressure 138/93 06/08/18 23:31 O2 Sat by Pulse Oximetry 97 06/08/18 23:31 Pain Scale Pain Intensity 6 - Danyel Coma Scale Best Eye Response (Danyel): (4) open spontaneously Best Verbal Response (Danyel): (5) oriented Best Motor Response (Danyel): (6) obeys commands Danyel Total: 15 - Physical Exam General Appearance: moderate distress Eye Exam: bilateral eye: normal inspection, PERRL, EOMI Ears, Nose, Throat Exam: normal ENT inspection, moist mucous membranes Neck Exam: normal inspection, non-tender, supple Respiratory: normal breath sounds, lungs clear, airway intact, No respiratory distress Cardiovascular: regular rate/rhythm, No edema Gastrointestinal: soft, No tenderness, No distention Extremity Exam: normal inspection, No pedal edema Mental Status: 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, 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 Exam: tongue midline SpO2: 93 - Course Nursing assessment & vital signs reviewed: Yes - CT Exams Head CT Interpretation: Negative Ordered Tests: Active Orders 24 hr Category Date Time Status IV Insertion STAT Care 06/08/18 23:59 Active HEAD WITHOUT CONTRAST [CT] Stat Exams 06/09/18 00:03 Taken UA W/RFX UR CULTURE Stat Lab 06/09/18 01:37 Completed Medication Summary Discontinued Medications Generic Name Dose Route Start Last Admin Trade Name Freq PRN Reason Stop Dose Admin Hydromorphone HCl 1 mg 06/09/18 00:03 06/09/18 00:44 Hydromorphone 1 Mg/Ml Ampule IV 06/09/18 00:04 1 mg STAT ONE Administration Hydromorphone HCl Confirm 06/09/18 00:11 Hydromorphone 1 Mg/Ml Ampule Administered 06/09/18 00:12 Dose 1 mg .ROUTE .STK-MED ONE Hydromorphone HCl 1 mg 06/09/18 02:16 06/09/18 02:31 Hydromorphone 1 Mg/Ml Ampule IV 06/09/18 02:17 1 mg STAT ONE Administration Hydromorphone HCl Confirm 06/09/18 02:28 Hydromorphone 1 Mg/Ml Ampule Administered 06/09/18 02:29 Dose 1 mg .ROUTE .STK-MED ONE Sodium Chloride 1,000 mls @ 999 mls/hr 06/08/18 23:59 06/09/18 00:46 Sodium Chloride 0.9% 1000 Ml IV 06/09/18 00:59 999 mls/hr .Q1H1M STA Administration Sodium Chloride Confirm 06/09/18 00:11 Sodium Chloride 0.9% 1000 Ml Administered 06/09/18 00:12 Dose 1,000 mls @ ud .ROUTE .STK-MED ONE Meclizine HCl 50 mg 06/09/18 00:02 06/09/18 00:14 Antivert 25 Mg PO 06/09/18 00:03 50 mg STAT ONE Administration Meclizine HCl Confirm 06/09/18 00:10 Antivert 25 Mg Administered 06/09/18 00:11 Dose 50 mg .ROUTE .STK-[facility] ONE Ondansetron HCl 4 mg 06/08/18 23:59 06/09/18 00:38 Zofran 4 Mg/2 Ml Vial IV 06/09/18 00:00 4 mg STAT ONE Administration Ondansetron HCl Confirm 06/09/18 00:10 Zofran 4 Mg/2 Ml Vial Administered 06/09/18 00:11 Dose 4 mg .[address]OUTE .[facility] ONE Lab/Rad Data: Laboratory Result Diagrams 06/08/18 00:54 06/08/18 00:54 Laboratory Results 06/09/18 06/08/18 06/08/18 Range/Units 01:37 00:54 00:54 WBC 9.3 (4.0-10.5) K/mm3 RBC 4.01 L (4.1-5.4) M/mm3 Hgb 11.5 L (12.0-16.0) gm/dl Hct 34.7 L (35-47) % MCV 86.5 (78-100) fl MCH 28.6 (26-32) pg MCHC 33.1 (32-36) g/dl RDW 14.5 H (11.5-14.0) % Plt Count 308 (150-450) K/mm3 MPV 8.9 (6-9.5) fl Gran % 60.4 (36.0-66.0) % Eos # (Auto) 0.09 (0-0.5) Absolute Lymphs (auto) 2.84 (1.0-4.6) Absolute Monos (auto) 0.71 (0.0-1.3) Lymphocytes % 30.7 (24.0-44.0) % Monocytes % 7.7 (0.0-12.0) % Eosinophils % 1.0 (0.00-5.0) % Basophils % 0.2 (0.0-0.4) % Absolute Granulocytes 5.59 (1.4-6.9) Basophils # 0.02 (0-0.4) ESR 46 H (0-20) mm/hr Sodium 140 (137-145) mmol/L Potassium 3.3 L (3.5-5.1) mmol/L Chloride 106 (98-107) mmol/L Carbon Dioxide 25 (22-30) mmol/L Anion Gap 12.4 (5-15) MEQ/L BUN 9 (7-17) mg/dL Creatinine 0.81 (0.52-1.04) mg/dL Estimated GFR > 60.0 ML/MIN Glucose 150 H (74-106) mg/dL Calcium 9.2 (8.4-10.2) mg/dL Total Bilirubin 0.10 L (0.2-1.3) mg/dL AST 16 (14-36) U/L ALT 19 (0-35) U/L Alkaline Phosphatase 98 (38-126) U/L Serum Total Protein 7.2 (6.3-8.2) g/dL Albumin 3.8 (3.5-5.0) g/dL Urine Color YELLOW (YELLOW) Urine Appearance CLEAR (CLEAR) Urine pH 6.0 (5-6) Ur Specific [place] 1.008 (1.005-1.025) Urine Protein NEGATIVE (Negative) Urine Ketones NEGATIVE (NEGATIVE) Urine Blood NEGATIVE (0-5) Stanley/ul Urine Nitrite NEGATIVE (NEGATIVE) Urine Bilirubin NEGATIVE (NEGATIVE) Urine Urobilinogen NEGATIVE (0-1) mg/dL Ur Leukocyte Esterase NEGATIVE (NEGATIVE) Urine WBC (Auto) 0-2 (0-5) /HPF Urine RBC (Auto) NONE (0-2) /HPF U Epithel Cells (Auto) RARE (FEW) /HPF Urine Bacteria (Auto) NONE (NEGATIVE) /HPF Urine Mucus (Auto) SLIGHT (NEGATIVE) /HPF Urine Culture Reflexed NO (NO) Urine Glucose NEGATIVE (NEGATIVE) mg/dL - Progress Progress: improved Progress Note: 06/09/18 04:06 Pt had lab work done, and CT of head. I did gave her Meclizine 50mg once, and Dilaudid 1mg IV x2. Pt improved, and her vertigo stopped. Pt was advised to f/ u with Neurology. A prescription for Meclizine will be e-scribed. Will see patient in: office Counseled pt/family regarding: need for follow-up - Departure Departure Disposition: Home Clinical Impression: Migraine Condition: Stable Critical Care Time: No Referrals: VIKRAM ALVARADO FNP [Primary Care Provider] - Additional Instructions: Take Meclizine when Vertigo starts. F/U with Neurology. F/U with PCP in a week. Prescriptions: Meclizine HCl 25 mg [Antivert 25 mg] 50 mg PO Q8H PRN #30 tablet PRN Reason: Dizziness
[2018-06-09 04:20] VITALS: BP 139/91; PULSE 90; O2SAT 95
--- NOTE | 2018-06-09 07:55 | XRAY ---
Indication: Headache and vertigo. History of migraine headaches. Multiple contiguous axial images obtained through the head without contrast. Comparison: August 03, 2017. Again normal appearing brain parenchyma, ventricles, and bony calvarium. Visualized paranasal sinuses and mastoid air cells are clear. Impression: Stable normal CT head without contrast exam. Comment: Preliminary interpretation was made by [facility]. No discrepancy. CTDI 67.80
== END 2018-06-09 04:25 | disposition home or self-care (01) ==
LOC: ED 23:05
DX: G43.909 Migraine, unspecified, not intractable, without status migrainosus (principal)
CPT/HCPCS: 36415; 70450; 80053; 81001; 85025; 85652; 96360; 96374; 96375; 96376; 99284; J1170; J2405; A9270-GY

== ENCOUNTER 2018-09-15 02:05 | Emergency (ER) | payer BC ==
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
[2018-09-15] MEDS ORDERED: Sodium Chloride 0.9% 1000 ML 1,000 ML IV STA (02:31)
[2018-09-15] MEDS ORDERED: Zofran 4 MG/2 ML VIAL IV ONE (02:31)
[2018-09-15 02:32] VITALS: BP 104/69; O2SAT 96
[2018-09-15 02:51] LABS: BASOPHIL % 0.2 % (0.0-0.4); Basophil (Absolute #) 0.02 (0-0.4); Eosinophil % 2.2 % (0.00-5.0); Granulocyte Absolute (ANC) 5.19 (1.4-6.9); Granulocytes % 57.5 % (36.0-66.0); Hematocrit 35.9 % (35-47); Hemoglobin 12.1 gm/dl (12.0-16.0); Lymphocyte (Absolute #) 3.01 (1.0-4.6); Lymphocytes % 33.3 % (24.0-44.0); Mean Cell Volume 86.5 fl (78-100); Mean Corpuscular Hemoglobin 29.2 pg (26-32); Mean Corpuscular Hgb Concent. 33.7 g/dl (32-36); Monocyte (Absolute #) 0.61 (0.0-1.3); Monocytes % 6.8 % (0.0-12.0); Platelet Count 326 K/mm3 (150-450); Red Blood Count 4.15 M/mm3 (4.1-5.4); Red Cell Distribution Width 14.5 % (11.5-14.0)
[2018-09-15 03:03] LABS: ALKALINE PHOSPHATASE 96 U/L (38-126); ANION GAP 12.4 MEQ/L (5-15); BLOOD UREA NITROGEN 10 mg/dL (7-17); CHLORIDE 102 mmol/L (98-107); Calcium 9.2 mg/dL (8.4-10.2); Carbon Dioxide 25 mmol/L (22-30); Creatinine 1 0.98 mg/dL (0.52-1.04); ETHYL ALCOHOL < 10 mg/dL (0-10); Glucose 135 mg/dL (74-106); Potassium 3.6 mmol/L (3.5-5.1); SGOT/AST 50 U/L (14-36); SGPT/ALT 25 U/L (0-35); SODIUM 136 mmol/L (137-145); Total Protein 7.5 g/dL (6.3-8.2)
[2018-09-15] MEDS ORDERED: Sodium Chloride 0.9% 1000 ML 1,000 ML ONE (03:20)
[2018-09-15] MEDS ORDERED: Zofran 4 MG/2 ML VIAL ONE (03:20)
[2018-09-15 03:56] VITALS: PULSE 86
[2018-09-15 04:29] LABS: Appearance CLEAR (CLEAR); Bilirubin NEGATIVE (NEGATIVE); Blood NEGATIVE Ery/ul (0-5); Epithelial Cells RARE /HPF (FEW); Glucose NEGATIVE (NEGATIVE); Ketones NEGATIVE (NEGATIVE); Leukocyte Esterase NEGATIVE (NEGATIVE); Nitrite NEGATIVE (NEGATIVE); Protein,Urine Dip NEGATIVE (Negative); Urobilinogen NEGATIVE mg/dL (0-1); WBC 0-2 /HPF (0-5)
[2018-09-15 04:49] LABS: Amphetamine,Urine NEGATIVE (NEGATIVE); Barbiturate,Urine NEGATIVE (NEGATIVE); Benzodiazepine,Urine NEGATIVE (NEGATIVE); Cocaine,Urine NEGATIVE (NEGATIVE); Methadone,Urine NEGATIVE (NEGATIVE); Opiate,Urine POSITIVE (NEGATIVE); PCP,Urine NEGATIVE (NEGATIVE); THC,Urine NEGATIVE (NEGATIVE)
[2018-09-15] MEDS ORDERED: PERCOCET TABLET 5/325MG PO STA (04:55)
[2018-09-15] MEDS ORDERED: PERCOCET TABLET 5/325MG ONE (05:06)
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
== END 2018-09-15 05:30 | disposition home or self-care (01) ==
LOC: ED 02:05
DX: S00.93XA Contusion of unspecified part of head, initial encounter (principal); V40.5XXA Car driver injured in collision with pedestrian or animal in traffic accident, initial encounter; M54.2 Cervicalgia
CPT/HCPCS: 36415; 70450; 72125; 73502; 80053; 80307; 81001; 85025; 93041; 96360; 96374; 99285; J2405; A9270-GY; G0480

== ENCOUNTER 2018-09-18 09:53 | Emergency (ER) | payer BC ==
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
[2018-09-18 11:51] VITALS: BP 120/72; PULSE 80
[2018-09-18 14:29] VITALS: O2SAT 97
== END 2018-09-18 11:54 | disposition home or self-care (01) ==
LOC: ED 09:53
DX: R07.89 Other chest pain (principal)
CPT/HCPCS: 71100; 99284

== ENCOUNTER 2018-10-21 13:52 | Emergency (ER) | payer BC ==
[2018-10-21 14:04] VITALS: BP 150/102; PULSE 124
[2018-10-21] MEDS ORDERED: Zofran 4 MG/2 ML VIAL IV ONE (14:23)
[2018-10-21] MEDS ORDERED: Sodium Chloride 0.9% 1000 ML 1,000 ML IV STA (14:23)
[2018-10-21] MEDS ORDERED: Zofran 4 MG/2 ML VIAL ONE (14:28)
[2018-10-21] MEDS ORDERED: Sodium Chloride 0.9% 1000 ML 1,000 ML ONE (14:29)
[2018-10-21 14:45] LABS: BASOPHIL % 0.1 % (0.0-0.4); Basophil (Absolute #) 0.01 (0-0.4); Eosinophil % 1.4 % (0.00-5.0); Eosinophil (Absolute #) 0.12 (0-0.5); Granulocyte Absolute (ANC) 6.75 (1.4-6.9); Granulocytes % 76.1 % (36.0-66.0); Hematocrit 37.7 % (35-47); Hemoglobin 12.5 gm/dl (12.0-16.0); Lymphocyte (Absolute #) 1.41 (1.0-4.6); Lymphocytes % 15.9 % (24.0-44.0); Mean Cell Volume 88.9 fl (78-100); Mean Corpuscular Hemoglobin 29.5 pg (26-32); Mean Corpuscular Hgb Concent. 33.2 g/dl (32-36); Mean Platelet Volume 9.1 fl (6-9.5); Monocyte (Absolute #) 0.58 (0.0-1.3); Monocytes % 6.5 % (0.0-12.0); Platelet Count 305 K/mm3 (150-450); Red Blood Count 4.24 M/mm3 (4.1-5.4); Red Cell Distribution Width 14.9 % (11.5-14.0); White Blood Count 8.9 K/mm3 (4.0-10.5)
[2018-10-21 14:49] LABS: Appearance SLIGHTLY CLOUDY (CLEAR); Bacteria RARE /HPF (NEGATIVE); Bilirubin NEGATIVE (NEGATIVE); Blood NEGATIVE Ery/ul (0-5); Epithelial Cells FEW /HPF (FEW); Glucose NEGATIVE (NEGATIVE); Ketones TRACE (NEGATIVE); Leukocyte Esterase NEGATIVE (NEGATIVE); Mucus SLIGHT /HPF (NEGATIVE); Nitrite NEGATIVE (NEGATIVE); Protein,Urine Dip 30 (Negative); RBC 0-2 /HPF (0-2); Specific Gravity 1.024 (1.005-1.025); Urobilinogen NEGATIVE mg/dL (0-1); WBC 0-2 /HPF (0-5)
[2018-10-21 14:56] LABS: ALBUMIN 4.6 g/dL (3.5-5.0); ALKALINE PHOSPHATASE 101 U/L (38-126); AMYLASE 46 U/L (30-110); ANION GAP 16.7 MEQ/L (5-15); BLOOD UREA NITROGEN 11 mg/dL (7-17); CHLORIDE 106 mmol/L (98-107); Calcium 9.5 mg/dL (8.4-10.2); Carbon Dioxide 19 mmol/L (22-30); Creatinine 1 0.76 mg/dL (0.52-1.04); Glucose 136 mg/dL (74-106); LIPASE 18 U/L (23-300); Potassium 3.3 mmol/L (3.5-5.1); SGOT/AST 35 U/L (14-36); SGPT/ALT 38 U/L (0-35); SODIUM 139 mmol/L (137-145); Total Protein 8.5 g/dL (6.3-8.2)
[2018-10-21] MEDS ORDERED: K-LYTE 25 MEQ PO ONE (15:13)
--- NOTE | 2018-10-21 15:15 | ERPHSYRPT ---
- History of Present Illness Time Seen by Provider: 10/21/18 15:14 Source: patient Exam Limitations: no limitations Patient Subjective Stated Complaint: vominting and loose stools since monday, vomited x3 today, loose stools more than 10.pain to both sides of abd ,and low back Triage Nursing Assessment: pt alert, resp easy, skin w/d/p, abd with bs tender to touch. moves all ext, no edema Physician History: vominting and loose stools since monday, vomited x3 today, loose stools more than 10.pain to both sides of abd ,and low back Allergies/Adverse Reactions: cyclobenzaprine [From Flexeril] Allergy (Verified 10/21/18 14:04) morphine Allergy (Verified 10/21/18 14:04) prochlorperazine [From Compazine] Adverse Reaction (Verified 10/21/18 14:04) Home Medications: Doxepin HCl 300 mg PO DAILY 11/14/16 [History] Lisinopril 20 mg [Zestril 20 MG] 20 mg PO BID 11/14/16 [History] Venlafaxine HCl [Effexor Xr] 150 mg PO BID 11/14/16 [History] Esomeprazole Magnesium [Nexium] 20 mg PO DAILY 12/30/16 [History] Metoprolol Tartrate 50 mg [Lopressor 50 MG] 50 mg PO BID 09/18/18 [History ] Quetiapine Fumarate 300 mg PO HS 09/18/18 [History] Venlafaxine HCl [Venlafaxine HCl ER] 75 mg PO DAILY 09/18/18 [History] Ziprasidone HCl 80 mg PO DAILY 09/18/18 [History] Zolpidem Tartrate 10 mg PO HS 09/18/18 [History] hydroCHLOROthiazide [Hydrochlorothiazide] 25 mg PO DAILY 09/18/18 [History] Hx Tetanus, Diphtheria Vaccination/Date Given: Yes Hx Influenza Vaccination/Date Given: No Hx Pneumococcal Vaccination/Date Given: No Immunizations Up to Date: Yes - Review of Systems Constitutional: No Fever, No Chills Eyes: No Symptoms Ears, Nose, & Throat: No Symptoms Respiratory: No Cough, No Dyspnea Cardiac: No Chest Pain, No Edema, No Syncope Abdominal/Gastrointestinal: Vomiting, Diarrhea, No Abdominal Pain, No Nausea Genitourinary Symptoms: No Dysuria Musculoskeletal: Back Pain, No Neck Pain Skin: No Rash Neurological: No Dizziness, No Focal Weakness, No Sensory Changes Psychological: No Symptoms Endocrine: No Symptoms All Other Systems: Reviewed and Negative - Past Medical History Pertinent Past Medical History: No Neurological History: Migraines, Other ENT History: No Pertinent History Cardiac History: High Cholesterol, Hypertension Respiratory History: No Pertinent History Endocrine Medical History: No Pertinent History, Diabetes Type II Musculoskeletal History: Fractures, Arthritis, Fibromyalgia GI Medical History: GERD, Esophageal Disorder History: No Pertinent History Psycho-Social History: Anxiety, Bipolar, Depression Female Reproductive Disorders: Endometriosis Other Medical History: cluster headaches -dilate esophagus -hyponatremia - Past Surgical History Past Surgical History: Yes Neuro Surgical History: No Pertinent History Cardiac: Angioplasty Respiratory: No Pertinent History Gastrointestinal: Cholecystectomy Genitourinary: No Pertinent History Musculoskeletal: Orthopedic Surgery Female Surgical History: Hysterectomy Other Surgical History: r foot,carpal tunnel - Social History Smoking Status: Current every day smoker How long have you smoked: 20 Exposure to second hand smoke: Yes Drug Use: none Patient Lives Alone: No - Female History Hx Last Menstrual Period: post - Nursing Vital Signs Nursing Vital Signs: Initial Vital Signs Temperature 97.4 F 10/21/18 13:53 Pulse Rate 124 H 10/21/18 13:53 Respiratory Rate 16 10/21/18 13:53 Blood Pressure 150/102 10/21/18 13:53 Pain Scale Pain Intensity 8 - Physical Exam General Appearance: no apparent distress, alert Eye Exam: PERRL/EOMI, eyes nml inspection Ears, Nose, Throat Exam: normal ENT inspection, TMs normal, pharynx normal, moist mucous membranes Neck Exam: normal inspection, non-tender, supple, full range of motion Respiratory Exam: normal breath sounds, lungs clear, No respiratory distress Cardiovascular Exam: regular rate/rhythm, normal heart sounds, normal peripheral pulses Gastrointestinal/Abdomen Exam: soft, normal bowel sounds, No tenderness, No mass Back Exam: normal inspection, normal range of motion, No CVA tenderness, No vertebral tenderness Extremity Exam: normal inspection, normal range of motion, pelvis stable Neurologic Exam: alert, 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, cooperative, normal mood/affect, nml cerebellar function, nml station & gait, sensation nml, No motor deficits Skin Exam: normal color, warm, dry, No rash Lymphatic Exam: No adenopathy - Course Nursing assessment & vital signs reviewed: Yes Ordered Tests: Active Orders 24 hr Category Date Time Status AMYLASE Stat Lab 10/21/18 14:25 Completed CBC W DIFF Stat Lab 10/21/18 14:25 Completed CMP Stat Lab 10/21/18 14:25 Completed LIPASE Stat Lab 10/21/18 14:25 Completed Lactic Acid Stat Lab 10/21/18 14:23 Completed UA W/RFX UR CULTURE Stat Lab 10/21/18 14:25 Completed Medication Summary Discontinued Medications Generic Name Dose Route Start Last Admin Trade Name Freq PRN Reason Stop Dose Admin Sodium Chloride 1,000 mls @ 999 mls/hr 10/21/18 14:23 10/21/18 14:30 Sodium Chloride 0.9% 1000 Ml IV 10/21/18 15:23 999 mls/hr .Q1H1M STA Administration Sodium Chloride Confirm 10/21/18 14:29 Sodium Chloride 0.9% 1000 Ml Administered 10/21/18 14:30 Dose 1,000 mls @ ud .ROUTE .STK-MED ONE Ondansetron HCl 4 mg 10/21/18 14:23 10/21/18 14:31 Zofran 4 Mg/2 Ml Vial IV 10/21/18 14:24 4 mg STAT ONE Administration Ondansetron HCl Confirm 10/21/18 14:28 Zofran 4 Mg/2 Ml Vial Administered 10/21/18 14:29 Dose 4 mg .ROUTE .STK-MED ONE Potassium Bicarbonate 25 meq 10/21/18 15:13 K-Lyte 25 Meq PO 10/21/18 15:14 STAT ONE Lab/Rad Data: Laboratory Result Diagrams 10/21/18 14:25 10/21/18 14:25 Laboratory Results 10/21/18 10/21/18 10/21/18 Range/Units 14:25 14:25 14:25 WBC 8.9 (4.0-10.5) K/mm3 RBC 4.24 (4.1-5.4) M/mm3 Hgb 12.5 (12.0-16.0) gm/dl Hct 37.7 (35-47) % MCV 88.9 (78-100) fl MCH 29.5 (26-32) pg MCHC 33.2 (32-36) g/dl RDW 14.9 H (11.5-14.0) % Plt Count 305 (150-450) K/mm3 MPV 9.1 (6-9.5) fl Gran % 76.1 H (36.0-66.0) % Eos # (Auto) 0.12 (0-0.5) Absolute Lymphs (auto) 1.41 (1.0-4.6) Absolute Monos (auto) 0.58 (0.0-1.3) Lymphocytes % 15.9 L (24.0-44.0) % Monocytes % 6.5 (0.0-12.0) % Eosinophils % 1.4 (0.00-5.0) % Basophils % 0.1 (0.0-0.4) % Absolute Granulocytes 6.75 (1.4-6.9) Basophils # 0.01 (0-0.4) Sodium 139 (137-145) mmol/L Potassium 3.3 L (3.5-5.1) mmol/L Chloride 106 (98-107) mmol/L Carbon Dioxide 19 L (22-30) mmol/L Anion Gap 16.7 H (5-15) MEQ/L BUN 11 (7-17) mg/dL Creatinine 0.76 (0.52-1.04) mg/dL Estimated GFR > 60.0 ML/MIN Glucose 136 H (74-106) mg/dL Lactic Acid (0.4-2.0) Calcium 9.5 (8.4-10.2) mg/dL Total Bilirubin 0.50 (0.2-1.3) mg/dL AST 35 (14-36) U/L ALT 38 H (0-35) U/L Alkaline Phosphatase 101 (38-126) U/L Serum Total Protein 8.5 H (6.3-8.2) g/dL Albumin 4.6 (3.5-5.0) g/dL Amylase 46 (30-110) U/L Lipase 18 L (23-300) U/L Urine Color YELLOW (YELLOW) Urine Appearance SLIGHTLY CLOUDY (CLEAR) Urine pH 6.0 (5-6) Ur Specific [place] 1.024 (1.005-1.025) Urine Protein 30 (Negative) Urine Ketones TRACE (NEGATIVE) Urine Blood NEGATIVE (0-5) Stanley/ul Urine Nitrite NEGATIVE (NEGATIVE) Urine Bilirubin NEGATIVE (NEGATIVE) Urine Urobilinogen NEGATIVE (0-1) mg/dL Ur Leukocyte Esterase NEGATIVE (NEGATIVE) Urine WBC (Auto) 0-2 (0-5) /HPF Urine RBC (Auto) 0-2 (0-2) /HPF U Epithel Cells (Auto) FEW (FEW) /HPF Urine Bacteria (Auto) RARE (NEGATIVE) /HPF Urine Mucus (Auto) SLIGHT (NEGATIVE) /HPF Urine Culture Reflexed NO (NO) Urine Glucose NEGATIVE (NEGATIVE) mg/dL 10/21/18 Range/Units 14:23 WBC (4.0-10.5) K/mm3 RBC (4.1-5.4) M/mm3 Hgb (12.0-16.0) gm/dl Hct (35-47) % MCV (78-100) fl MCH (26-32) pg MCHC (32-36) g/dl RDW (11.5-14.0) % Plt Count (150-450) K/mm3 MPV (6-9.5) fl Gran % (36.0-66.0) % Eos # (Auto) (0-0.5) Absolute Lymphs (auto) (1.0-4.6) Absolute Monos (auto) (0.0-1.3) Lymphocytes % (24.0-44.0) % Monocytes % (0.0-12.0) % Eosinophils % (0.00-5.0) % Basophils % (0.0-0.4) % Absolute Granulocytes (1.4-6.9) Basophils # (0-0.4) Sodium (137-145) mmol/L Potassium (3.5-5.1) mmol/L Chloride (98-107) mmol/L Carbon Dioxide (22-30) mmol/L Anion Gap (5-15) MEQ/L BUN (7-17) mg/dL Creatinine (0.52-1.04) mg/dL Estimated GFR ML/MIN Glucose (74-106) mg/dL Lactic Acid 1.3 (0.4-2.0) Calcium (8.4-10.2) mg/dL Total Bilirubin (0.2-1.3) mg/dL AST (14-36) U/L ALT (0-35) U/L Alkaline Phosphatase (38-126) U/L Serum Total Protein (6.3-8.2) g/dL Albumin (3.5-5.0) g/dL Amylase (30-110) U/L Lipase (23-300) U/L Urine Color (YELLOW) Urine Appearance (CLEAR) Urine pH (5-6) Ur Specific [place] (1.005-1.025) Urine Protein (Negative) Urine Ketones (NEGATIVE) Urine Blood (0-5) Stanley/ul Urine Nitrite (NEGATIVE) Urine Bilirubin (NEGATIVE) Urine Urobilinogen (0-1) mg/dL Ur Leukocyte Esterase (NEGATIVE) Urine WBC (Auto) (0-5) /HPF Urine RBC (Auto) (0-2) /HPF U Epithel Cells (Auto) (FEW) /HPF Urine Bacteria (Auto) (NEGATIVE) /HPF Urine Mucus (Auto) (NEGATIVE) /HPF Urine Culture Reflexed (NO) Urine Glucose (NEGATIVE) mg/dL - Progress Progress: improved, pain not gone completely Counseled pt/family regarding: lab results, diagnosis, need for follow-up - Departure Departure Disposition: Home Clinical Impression: Back pain Qualifiers: Back pain location: low back pain Chronicity: acute Back pain laterality: midline Sciatica presence: without sciatica Qualified Code(s): M54.5 - Low back pain UTI (urinary tract infection) Qualifiers: Urinary tract infection type: acute cystitis Hematuria presence: without hematuria Qualified Code(s): N30.00 - Acute cystitis without hematuria Condition: Stable Critical Care Time: Yes Critical Care Time(excluding separately billable procedures): Critical 30-74 mins Referrals: DOCTOR,NO FAMILY [Primary Care Provider] - Instructions: Urinary Tract Infections in Adults, Low Back Pain in Adults Additional Instructions: URINARY TRACT INFECTION 1. You will need to drink plenty of fluids in order to keep your urinary system flushed. These fluids should mainly consist of water and juices. 2. Take medications as directed. You need to completely finish any antiobiotic prescription given. 3. Try to avoid coffee, tea, alcohol, and seasoned foods as they may cause bladder irritation. 4. If signs and symptoms persist after 3-4 days, you will need to follow up with your family physician. 5. Female Patients: A. Avoid intercourse for 3-4 days. B. Empty bladder before and after intercourse to reduce risk of re- infection. C. After emptying bladder, wipe from front to back to reduce the risk of re- infection. Discharge/Care Plan CALDERONMATHIEU SAWYER was seen on 10/21/18 in the Emergency Room. The patient was counseled regarding Diagnosis,Lab results, Imaging studies, need for follow up and when to return to the Emergency Room. Prescriptions given: Discharge Note I have spoken with the patient and/or caregivers. I have explained the patient' s condition, diagnosis and treatment plan based on the information available to me at this time. I have answered the patient's and/or caregiver's questions and addressed any concerns. The patient and/or caregivers have as good understanding of the patient's diagnosis, condition and treatment plan as can be expected at this point. The vital signs have been stable. The patient's condition is stable and appropriate for discharge from the emergency department. The patient will pursue further outpatient evaluation with the primary care physician or other designated or consulting physician as outlined in the discharge instructions. The patient and/or caregivers are agreeable to this plan of care and follow-up instructions have been explained in detail. The patient and/or caregivers have received these instruction. The patient/and or caregivers are aware that any significant change in condition or worsening of symptoms should prompt an immediate return to this or the closest emergency department or call 911. Prescriptions: Ciprofloxacin [Cipro 500 MG] 500 mg PO BIDAC #20 tablet Naproxen 375 mg [Naprosyn 375 mg] 375 mg PO Q8H #30 tablet
[2018-10-21] MEDS ORDERED: TORAdol 30 mg Injection IV ONE (15:28)
[2018-10-21] MEDS ORDERED: TORAdol 30 mg Injection ONE (15:29)
[2018-10-21] MEDS ORDERED: K-LYTE 25 MEQ ONE (15:30)
== END 2018-10-21 16:27 | disposition home or self-care (01) ==
LOC: ED 13:52
DX: M54.5 Low back pain (principal); N30.00 Acute cystitis without hematuria
CPT/HCPCS: 36415; 80053; 81001; 82150; 83605; 83690; 85025; 96360; 96374; 96375; 99284; 99291; J1885; J2405; A9270-GY

== ENCOUNTER 2018-12-16 01:34 | Emergency (ER) | payer BC ==
[~2018-12-16 01:34] MED LIST: DILAUDID 2 MG INJECTION IM PRN; Hydromorphone 1 mg/ml Ampule ONE; Zofran 4 MG/2 ML VIAL IM ONE; Zofran 4 MG/2 ML VIAL ONE
[2018-12-16 01:52] VITALS: BP 91/77; PULSE 92
[2018-12-16 01:55] VITALS: O2SAT 97
--- NOTE | 2018-12-16 01:55 | ERPHSYRPT ---
- History of Present Illness Source: patient Exam Limitations: no limitations Patient Subjective Stated Complaint: pt states she has had a headache since . rates it at 8/10. and states it radiates down her neck Triage Nursing Assessment: pt alert and oreinted, answers questions approp. pt ambulatory with teady gait noted. respirations nonlabored with lungs cta. pupils equal nd reactive. bilat upper and lower ext strength equal and wnl. Timing/Duration: day(s) (4) Quality: aching, pressure Head Pain Location: occipital Severity of Pain-Max: moderate Severity of Pain-Current: moderate Recent Head Trauma: frequent headaches Associated Symptoms: dizziness, nausea/vomiting, neck pain Previous symptoms: same symptoms as today Allergies/Adverse Reactions: cyclobenzaprine [From Flexeril] Allergy (Verified 10/21/18 14:04) morphine Allergy (Verified 10/21/18 14:04) prochlorperazine [From Compazine] Adverse Reaction (Verified 10/21/18 14:04) Home Medications: Doxepin HCl 300 mg PO DAILY 11/14/16 [History] Lisinopril 20 mg [Zestril 20 MG] 20 mg PO BID 11/14/16 [History] Venlafaxine HCl [Effexor Xr] 150 mg PO BID 11/14/16 [History] Esomeprazole Magnesium [Nexium] 20 mg PO DAILY 12/30/16 [History] Metoprolol Tartrate 50 mg [Lopressor 50 MG] 50 mg PO BID 09/18/18 [History ] Quetiapine Fumarate 300 mg PO HS 09/18/18 [History] Venlafaxine HCl [Venlafaxine HCl ER] 75 mg PO DAILY 09/18/18 [History] Zolpidem Tartrate 10 mg PO HS PRN PRN 09/18/18 [History] hydroCHLOROthiazide [Hydrochlorothiazide] 25 mg PO DAILY 09/18/18 [History] Linaclotide [Linzess] 72 mcg PO DAILY 12/16/18 [History] Hx Tetanus, Diphtheria Vaccination/Date Given: Yes Hx Influenza Vaccination/Date Given: Yes Hx Pneumococcal Vaccination/Date Given: No Immunizations Up to Date: Yes - Review of Systems Constitutional: No Fever, No Chills Eyes: No Symptoms Ears, Nose, & Throat: No Symptoms Respiratory: No Cough, No Dyspnea Cardiac: No Chest Pain, No Edema, No Syncope Abdominal/Gastrointestinal: Nausea, Vomiting, No Abdominal Pain, No Diarrhea Genitourinary Symptoms: No Dysuria Musculoskeletal: No Back Pain, No Neck Pain Skin: No Rash Neurological: Headache, No Dizziness, No Focal Weakness, No Sensory Changes Psychological: No Symptoms Endocrine: No Symptoms All Other Systems: Reviewed and Negative - Past Medical History Pertinent Past Medical History: No Neurological History: Migraines, Other ENT History: No Pertinent History Cardiac History: High Cholesterol, Hypertension Respiratory History: No Pertinent History Endocrine Medical History: No Pertinent History, Diabetes Type II Musculoskeletal History: Fractures, Arthritis, Fibromyalgia GI Medical History: GERD, Esophageal Disorder History: No Pertinent History Psycho-Social History: Bipolar Female Reproductive Disorders: Endometriosis Other Medical History: cluster headaches -dilate esophagus -hyponatremia - Past Surgical History Past Surgical History: Yes Neuro Surgical History: No Pertinent History Cardiac: Angioplasty Respiratory: No Pertinent History Gastrointestinal: Cholecystectomy Genitourinary: No Pertinent History Musculoskeletal: Orthopedic Surgery Female Surgical History: Hysterectomy Other Surgical History: r foot,carpal tunnel - Social History Smoking Status: Current every day smoker How long have you smoked: 20 Exposure to second hand smoke: Yes Drug Use: none Patient Lives Alone: No - Female History Hx Last Menstrual Period: hyster Hx Now: No - Nursing Vital Signs Nursing Vital Signs: Initial Vital Signs Temperature 98.7 F 12/16/18 01:54 EDT Pulse Rate 90 12/16/18 01:54 EDT Respiratory Rate 18 12/16/18 01:54 EDT Blood Pressure 135/85 12/16/18 01:54 EDT O2 Sat by Pulse Oximetry 97 12/16/18 01:54 EDT Pain Scale Pain Intensity 8 - Physical Exam General Appearance: no apparent distress Eye Exam: PERRL/EOMI Ears, Nose, Throat Exam: normal ENT inspection, moist mucous membranes Neck Exam: normal inspection, supple, full range of motion, No meningismus Respiratory Exam: normal breath sounds, lungs clear Cardiovascular Exam: regular rate/rhythm, normal heart sounds Gastrointestinal/Abdominal Exam: soft, No tenderness, No distention Back Exam: normal inspection, normal range of motion 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, 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, 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 speech, PERRL, No facial droop Coordination/Gait Exam: normal cerebellar function Motor/Sensory Exam: no motor deficit, no sensory deficit Skin Exam: normal color, warm, dry, No rash SpO2: 97 Ordered Tests: Medication Summary Generic Name Dose Route Start Last Admin Trade Name Freq PRN Reason Stop Dose Admin Hydromorphone HCl 2 mg 12/16/18 01:17 EST 12/16/18 01:25 EST Dilaudid 2 Mg Injection IM 12/21/18 01:16 2 mg Q4H PRN PRN Administration PAIN Discontinued Medications Generic Name Dose Route Start Last Admin Trade Name Freq PRN Reason Stop Dose Admin Hydromorphone HCl Confirm 12/16/18 01:21 EST Hydromorphone 1 Mg/Ml Ampule Administered 12/16/18 01:22 EST Dose 2 mg .ROUTE .STK-MED ONE Ondansetron HCl 4 mg 12/16/18 01:18 EST 12/16/18 01:25 EST Zofran 4 Mg/2 Ml Vial IM 12/16/18 01:19 EST 4 mg STAT ONE Administration Ondansetron HCl Confirm 12/16/18 01:20 EST Zofran 4 Mg/2 Ml Vial Administered 12/16/18 01:21 EST Dose 4 mg .ROUTE .STK-MED ONE - Progress Progress: improved Air Movement: good Progress Note: 12/16/18 01:53 EST much improved - Departure Departure Disposition: Home Clinical Impression: Migraine headache Condition: Stable Critical Care Time: No Referrals: DOCTOR,NO FAMILY [Primary Care Provider] -
== END 2018-12-16 02:05 | disposition home or self-care (01) ==
LOC: ED 01:34
DX: G43.909 Migraine, unspecified, not intractable, without status migrainosus (principal)
CPT/HCPCS: 96372; 99284; J1170; J2405

== ENCOUNTER 2019-01-12 19:48 | Emergency (ER) | payer BC ==
[2019-01-12] MEDS ORDERED: Zofran 4 MG/2 ML VIAL IV ONE (20:18)
[2019-01-12] MEDS ORDERED: Hydromorphone 1 mg/ml Ampule IV ONE ×3 (20:18→22:29)
[2019-01-12] MEDS ORDERED: Sodium Chloride 0.9% 1000 ML 1,000 ML IV STA (20:18)
--- NOTE | 2019-01-12 20:18 | ERPHSYRPT ---
- History of Present Illness Time Seen by Provider: 01/12/19 20:10 Historian: patient Exam Limitations: no limitations Patient Subjective Stated Complaint: pt c/o constipation x3 days, abd pain off and on since yesterday. Pt c/o sharp pain to rt lower abd area and radiates to low back on rt side. Pt denies any nausea, vomiting or diarrhea, has slight indigestion when eating. Pt had tiny bm prior to coming to ER which exacerabated the pain with scant amt of blood in stool. Triage Nursing Assessment: pt ambulated to room 6, alert and oriented x4, pleasant and cooperative. Pt voided for sample. Pt c/o rt lower abd pain, which is sharp and radiates to lower back on rt side. Pt c/o constipation x3 days. Pt had very sm bm today, which had scant amt of blood in it, and having the bm exacerbated the pain. Pt denies nausea, vomiting or diarrhea, only has indigestion when eating. Lungs clear, heart tones reg. Abd lg, obese with active bs x4 quad, tender on palpation to rt lower quad. Physician History: 48 y/o white female presents with right flank and right lower quad abd pain for 3 days followed by constipation. pt denies n/v. pt states not that unusual for her to have constipation for a few days. pts pain worse today. pt has had a cholecystectomy and hysterectomy in past. pt states morphine gives her a rash but she believes shes had dilaudid in past and no issues with it. Timing/Duration: day(s) (3), worse Quality: sharpness, stabbing Abdominal Pain Onset Location: RLQ, suprapubic, flank (right) Severity of Pain-Max: moderate Severity of Pain-Current: moderate Modifying Factors: Worsens With: coughing, vomiting Associated Symptoms: loss of appetite, other (constipation), No chest pain, No diarrhea, No nausea Previous symptoms: no prior history Allergies/Adverse Reactions: cyclobenzaprine [From Flexeril] Allergy (Verified 10/21/18 14:04) morphine Allergy (Verified 10/21/18 14:04) prochlorperazine [From Compazine] Adverse Reaction (Verified 10/21/18 14:04) Home Medications: Doxepin HCl 300 mg PO DAILY 11/14/16 [History] Lisinopril 20 mg [Zestril 20 MG] 20 mg PO BID 11/14/16 [History] Venlafaxine HCl [Effexor Xr] 300 mg PO HS 11/14/16 [History] Esomeprazole Magnesium [Nexium] 20 mg PO DAILY 12/30/16 [History] Metoprolol Tartrate 50 mg [Lopressor 50 MG] 50 mg PO HS 09/18/18 [History] Quetiapine Fumarate 300 mg PO HS 09/18/18 [History] Venlafaxine HCl [Venlafaxine HCl ER] 75 mg PO DAILY 09/18/18 [History] Zolpidem Tartrate 10 mg PO HS PRN PRN 09/18/18 [History] hydroCHLOROthiazide [Hydrochlorothiazide] 25 mg PO DAILY 09/18/18 [History] Linaclotide [Linzess] 72 mcg PO DAILY 12/16/18 [History] Hx Tetanus, Diphtheria Vaccination/Date Given: Yes Hx Influenza Vaccination/Date Given: Yes Hx Pneumococcal Vaccination/Date Given: No Immunizations Up to Date: Yes - Review of Systems Constitutional: No Symptoms Eyes: No Symptoms Ears, Nose, & Throat: No Symptoms Respiratory: No Symptoms Cardiac: No Symptoms Abdominal/Gastrointestinal: Abdominal Pain, Constipation, No Nausea, No Vomiting , No Diarrhea Genitourinary Symptoms: No Symptoms Musculoskeletal: No Symptoms Skin: No Symptoms Neurological: No Symptoms Psychological: No Symptoms Endocrine: No Symptoms Hematologic/Lymphatic: No Symptoms Immunological/Allergic: No Symptoms All Other Systems: Reviewed and Negative - Past Medical History Pertinent Past Medical History: No Neurological History: Migraines, Other ENT History: No Pertinent History Cardiac History: High Cholesterol, Hypertension Respiratory History: No Pertinent History Endocrine Medical History: Diabetes Type II Musculoskeletal History: Fractures, Arthritis, Fibromyalgia GI Medical History: Esophageal Disorder, GERD, Gallbladder Disease History: No Pertinent History Psycho-Social History: Bipolar Female Reproductive Disorders: Endometriosis Other Medical History: cluster headaches -dilate esophagus -hyponatremia - Past Surgical History Past Surgical History: Yes Neuro Surgical History: No Pertinent History Cardiac: Angioplasty Respiratory: No Pertinent History Gastrointestinal: Cholecystectomy Genitourinary: No Pertinent History Musculoskeletal: Orthopedic Surgery Female Surgical History: Hysterectomy Other Surgical History: r foot,carpal tunnel, lt wrist ligament repair - Social History Smoking Status: Current every day smoker How long have you smoked: 30 yrs Exposure to second hand smoke: Yes Drug Use: none Patient Lives Alone: No - Female History Hx Now: No - Nursing Vital Signs Nursing Vital Signs: Initial Vital Signs Temperature 98.0 F 01/12/19 19:57 Pulse Rate 100 H 01/12/19 19:57 Respiratory Rate 19 01/12/19 19:57 Blood Pressure 164/110 01/12/19 19:57 O2 Sat by Pulse Oximetry 98 01/12/19 19:57 Pain Scale Pain Intensity 7 - Physical Exam General Appearance: mild distress, alert, anxiety Eye Exam: PERRL/EOMI, eyes nml inspection Ears, Nose, Throat Exam: normal ENT inspection, moist mucous membranes Neck Exam: normal inspection, non-tender, supple, full range of motion Respiratory Exam: normal breath sounds, lungs clear, No chest tenderness, No respiratory distress, No airway intact Cardiovascular Exam: regular rate/rhythm, normal heart sounds, normal peripheral pulses Gastrointestinal/Abdomen Exam: soft, normal bowel sounds, No tenderness Pelvic Exam: not done Rectal Exam: not done Skin Exam: normal color, warm, dry SpO2 Interpretation: normal SpO2: 98 O2 Delivery: Room Air - Course Nursing assessment & vital signs reviewed: Yes Ordered Tests: Active Orders 24 hr Category Date Time Status IV Insertion STAT Care 01/12/19 20:18 Active ABDOMEN AND PELVIS W/0 CONTRAS [CT] Stat Exams 01/12/19 20:19 Taken AMYLASE Stat Lab 01/12/19 20:32 Completed CBC W DIFF Stat Lab 01/12/19 20:32 Completed CMP Stat Lab 01/12/19 20:32 Completed LIPASE Stat Lab 01/12/19 20:32 Completed Lactic Acid Stat Lab 01/12/19 20:50 Completed UA W/RFX UR CULTURE Stat Lab 01/12/19 20:32 Completed Medication Summary Discontinued Medications Generic Name Dose Route Start Last Admin Trade Name Freq PRN Reason Stop Dose Admin Hydromorphone HCl 0.5 mg 01/12/19 20:18 01/12/19 20:33 Hydromorphone 1 Mg/Ml Ampule IV 01/12/19 20:19 0.5 mg STAT ONE Administration Hydromorphone HCl Confirm 01/12/19 20:25 Hydromorphone 1 Mg/Ml Ampule Administered 01/12/19 20:26 Dose 1 mg .ROUTE .STK-MED ONE Hydromorphone HCl 1 mg 01/12/19 21:20 01/12/19 21:25 Hydromorphone 1 Mg/Ml Ampule IV 01/12/19 21:21 1 mg STAT ONE Administration Hydromorphone HCl Confirm 01/12/19 21:23 Hydromorphone 1 Mg/Ml Ampule Administered 01/12/19 21:24 Dose 1 mg .ROUTE .STK-MED ONE Hydromorphone HCl 0.5 mg 01/12/19 22:29 Hydromorphone 1 Mg/Ml Ampule IV 01/12/19 22:30 STAT ONE Sodium Chloride 1,000 mls @ 999 mls/hr 01/12/19 20:18 01/12/19 20:31 Sodium Chloride 0.9% 1000 Ml IV 01/12/19 21:18 999 mls/hr .Q1H1M STA Administration Sodium Chloride Confirm 01/12/19 20:25 Sodium Chloride 0.9% 1000 Ml Administered 01/12/19 20:26 Dose 1,000 mls @ ud .ROUTE .STK-MED ONE Ondansetron HCl 4 mg 01/12/19 20:18 01/12/19 20:32 Zofran 4 Mg/2 Ml Vial IV 01/12/19 20:19 4 mg STAT ONE Administration Ondansetron HCl Confirm 01/12/19 20:22 Zofran 4 Mg/2 Ml Vial Administered 01/12/19 20:23 Dose 4 mg .ROUTE .STK-MED ONE Lab/Rad Data: Laboratory Result Diagrams 01/12/19 20:32 01/12/19 20:32 Laboratory Results 01/12/19 01/12/19 01/12/19 Range/Units 20:50 20:32 20:32 WBC (4.0-10.5) K/mm3 RBC (4.1-5.4) M/mm3 Hgb (12.0-16.0) gm/dl Hct (35-47) % MCV (78-100) fl MCH (26-32) pg MCHC (32-36) g/dl RDW (11.5-14.0) % Plt Count (150-450) K/mm3 MPV (6-9.5) fl Gran % (36.0-66.0) % Eos # (Auto) (0-0.5) Absolute Lymphs (auto) (1.0-4.6) Absolute Monos (auto) (0.0-1.3) Lymphocytes % (24.0-44.0) % Monocytes % (0.0-12.0) % Eosinophils % (0.00-5.0) % Basophils % (0.0-0.4) % Absolute Granulocytes (1.4-6.9) Basophils # (0-0.4) Sodium 139 (137-145) mmol/L Potassium 3.3 L (3.5-5.1) mmol/L Chloride 104 (98-107) mmol/L Carbon Dioxide 25 (22-30) mmol/L Anion Gap 13.0 (5-15) MEQ/L BUN 7 (7-17) mg/dL Creatinine 0.94 (0.52-1.04) mg/dL Estimated GFR > 60.0 ML/MIN Glucose 160 H (74-106) mg/dL Lactic Acid 1.7 (0.4-2.0) Calcium 9.4 (8.4-10.2) mg/dL Total Bilirubin 0.30 (0.2-1.3) mg/dL AST 26 (14-36) U/L ALT 24 (0-35) U/L Alkaline Phosphatase 75 (38-126) U/L Serum Total Protein 7.9 (6.3-8.2) g/dL Albumin 4.1 (3.5-5.0) g/dL Amylase 45 (30-110) U/L Lipase 49 (23-300) U/L Urine Color STRAW (YELLOW) Urine Appearance CLEAR (CLEAR) Urine pH 6.0 (5-6) Ur Specific [place] 1.003 (1.005-1.025) Urine Protein NEGATIVE (Negative) Urine Ketones NEGATIVE (NEGATIVE) Urine Blood NEGATIVE (0-5) Stanley/ul Urine Nitrite NEGATIVE (NEGATIVE) Urine Bilirubin NEGATIVE (NEGATIVE) Urine Urobilinogen NEGATIVE (0-1) mg/dL Ur Leukocyte Esterase NEGATIVE (NEGATIVE) Urine WBC (Auto) 0-2 (0-5) /HPF Urine RBC (Auto) NONE (0-2) /HPF U Epithel Cells (Auto) RARE (FEW) /HPF Urine Bacteria (Auto) RARE (NEGATIVE) /HPF Urine Mucus (Auto) SLIGHT (NEGATIVE) /HPF Urine Culture Reflexed NO (NO) Urine Glucose NEGATIVE (NEGATIVE) mg/dL 01/12/19 Range/Units 20:32 WBC 9.4 (4.0-10.5) K/mm3 RBC 3.98 L (4.1-5.4) M/mm3 Hgb 11.9 L (12.0-16.0) gm/dl Hct 35.7 (35-47) % MCV 89.7 (78-100) fl MCH 29.9 (26-32) pg MCHC 33.3 (32-36) g/dl RDW 12.8 (11.5-14.0) % Plt Count 313 (150-450) K/mm3 MPV 9.0 (6-9.5) fl Gran % 59.5 (36.0-66.0) % Eos # (Auto) 0.23 (0-0.5) Absolute Lymphs (auto) 2.95 (1.0-4.6) Absolute Monos (auto) 0.62 (0.0-1.3) Lymphocytes % 31.4 (24.0-44.0) % Monocytes % 6.6 (0.0-12.0) % Eosinophils % 2.4 (0.00-5.0) % Basophils % 0.1 (0.0-0.4) % Absolute Granulocytes 5.58 (1.4-6.9) Basophils # 0.01 (0-0.4) Sodium (137-145) mmol/L Potassium (3.5-5.1) mmol/L Chloride (98-107) mmol/L Carbon Dioxide (22-30) mmol/L Anion Gap (5-15) MEQ/L BUN (7-17) mg/dL Creatinine (0.52-1.04) mg/dL Estimated GFR ML/MIN Glucose (74-106) mg/dL Lactic Acid (0.4-2.0) Calcium (8.4-10.2) mg/dL Total Bilirubin (0.2-1.3) mg/dL AST (14-36) U/L ALT (0-35) U/L Alkaline Phosphatase (38-126) U/L Serum Total Protein (6.3-8.2) g/dL Albumin (3.5-5.0) g/dL Amylase (30-110) U/L Lipase (23-300) U/L Urine Color (YELLOW) Urine Appearance (CLEAR) Urine pH (5-6) Ur Specific [place] (1.005-1.025) Urine Protein (Negative) Urine Ketones (NEGATIVE) Urine Blood (0-5) Stanley/ul Urine Nitrite (NEGATIVE) Urine Bilirubin (NEGATIVE) Urine Urobilinogen (0-1) mg/dL Ur Leukocyte Esterase (NEGATIVE) Urine WBC (Auto) (0-5) /HPF Urine RBC (Auto) (0-2) /HPF U Epithel Cells (Auto) (FEW) /HPF Urine Bacteria (Auto) (NEGATIVE) /HPF Urine Mucus (Auto) (NEGATIVE) /HPF Urine Culture Reflexed (NO) Urine Glucose (NEGATIVE) mg/dL - Progress Progress: improved, pain not gone completely, re-examined Progress Note: 01/12/19 22:30 ct abd/pelvis-no acute intraabd process Counseled pt/family regarding: lab results, diagnosis, need for follow-up, rad results - Departure Departure Disposition: Home Clinical Impression: Abdominal pain, Constipation Condition: Stable Critical Care Time: No Referrals: DOCTOR,NO FAMILY [Primary Care Provider] - Additional Instructions: drink plenty of fluids. follow up with primary doctor for further management
[2019-01-12] MEDS ORDERED: Zofran 4 MG/2 ML VIAL ONE (20:22)
[2019-01-12] MEDS ORDERED: Hydromorphone 1 mg/ml Ampule ONE ×3 (20:25→22:32)
[2019-01-12] MEDS ORDERED: Sodium Chloride 0.9% 1000 ML 1,000 ML ONE (20:25)
[2019-01-12 20:35] LABS: Absolute Neutrophil Ct (ANC) 5.58 (1.4-6.9); BASOPHIL % 0.1 % (0.0-0.4); Basophil (Absolute #) 0.01 (0-0.4); Eosinophil % 2.4 % (0.00-5.0); Eosinophil (Absolute #) 0.23 (0-0.5); Hematocrit 35.7 % (35-47); Hemoglobin 11.9 gm/dl (12.0-16.0); Lymphocyte (Absolute #) 2.95 (1.0-4.6); Lymphocytes % 31.4 % (24.0-44.0); Mean Cell Volume 89.7 fl (78-100); Mean Corpuscular Hemoglobin 29.9 pg (26-32); Mean Corpuscular Hgb Concent. 33.3 g/dl (32-36); Monocyte (Absolute #) 0.62 (0.0-1.3); Monocytes % 6.6 % (0.0-12.0); Neutrophil % 59.5 % (36.0-66.0); Platelet Count 313 K/mm3 (150-450); Red Blood Count 3.98 M/mm3 (4.1-5.4); Red Cell Distribution Width 12.8 % (11.5-14.0); White Blood Count 9.4 K/mm3 (4.0-10.5)
[2019-01-12 20:39] LABS: Appearance CLEAR (CLEAR); Bacteria RARE /HPF (NEGATIVE); Bilirubin NEGATIVE (NEGATIVE); Blood NEGATIVE Ery/ul (0-5); Epithelial Cells RARE /HPF (FEW); Glucose NEGATIVE (NEGATIVE); Ketones NEGATIVE (NEGATIVE); Leukocyte Esterase NEGATIVE (NEGATIVE); Mucus SLIGHT /HPF (NEGATIVE); Nitrite NEGATIVE (NEGATIVE); Protein,Urine Dip NEGATIVE (Negative); Specific Gravity 1.003 (1.005-1.025); Urobilinogen NEGATIVE mg/dL (0-1); WBC 0-2 /HPF (0-5)
[2019-01-12 20:40] LABS: ALBUMIN 4.1 g/dL (3.5-5.0); ALKALINE PHOSPHATASE 75 U/L (38-126); AMYLASE 45 U/L (30-110); BLOOD UREA NITROGEN 7 mg/dL (7-17); CHLORIDE 104 mmol/L (98-107); Calcium 9.4 mg/dL (8.4-10.2); Carbon Dioxide 25 mmol/L (22-30); Creatinine 1 0.94 mg/dL (0.52-1.04); Glucose 160 mg/dL (74-106); LIPASE 49 U/L (23-300); Potassium 3.3 mmol/L (3.5-5.1); SGOT/AST 26 U/L (14-36); SGPT/ALT 24 U/L (0-35); SODIUM 139 mmol/L (137-145); Total Protein 7.9 g/dL (6.3-8.2)
[2019-01-12 22:31] VITALS: O2SAT 98
[2019-01-12] MEDS ORDERED: CITROMA 296 ML PO ONE (22:32)
[2019-01-12] MEDS ORDERED: CITROMA 296 ML ONE (22:53)
[2019-01-12 23:03] VITALS: BP 139/93; PULSE 82
--- NOTE | 2019-01-13 08:01 | XRAY ---
Indication: Right abdomen/flank pain 2 days. Nausea and constipation. History renal stones. Multiple contiguous axial images obtained through the abdomen and pelvis without contrast using renal stone protocol. Comparison: April 03, 2018. Lung bases are clear. Heart is not enlarged. Again no renal calculus or evidence for obstructive uropathy in either system. Noncontrasted stomach and bowel loops appear nonobstructed. Normal appendix. Again mild diffuse scattered colonic fecal debris throughout. No free fluid/air. Stable 23 cm fatty hepatomegaly, cholecystectomy, and hysterectomy. Remaining liver, pancreas, spleen, adrenal glands, kidneys, ureters, and bladder appear unremarkable for noncontrasted exam. Minimal aortoiliac calcifications without AAA. Osseous structures intact with with mild degenerative changes throughout the spine. New healing right 5/6 rib fractures. Impression: 1. Negative renal calculus or evidence for obstructive uropathy. 2. Fecal stasis without obstruction. 3. Stable fatty hepatomegaly. 4. Healing right 5/[address] 5[address] Remaining CT abdomen/pelvis without contrast exam is negative Comment: Preliminary interpretation was made by [facility]. No critical discrepancy. CTDI 29.68
== END 2019-01-12 23:03 | disposition home or self-care (01) ==
LOC: ED 19:48
DX: R10.31 Right lower quadrant pain (principal); K59.00 Constipation, unspecified; R10.9 Unspecified abdominal pain; Z79.899 Other long term (current) drug therapy; E78.00 Pure hypercholesterolemia, unspecified; I10 Essential (primary) hypertension; E11.9 Type 2 diabetes mellitus without complications
CPT/HCPCS: 36000; 36415; 74176; 80053; 81001; 82150; 83605; 83690; 85025; 96374; 96375; 96376; 99284; J1170; J2405; A9270-GY

== ENCOUNTER 2019-08-24 20:58 | Emergency (ER) | payer BC ==
[2019-08-24] MEDS ORDERED: Norflex 60 MG/2 ML IM ONE (21:32)
[2019-08-24] MEDS ORDERED: TORAdol 30 mg Injection IM ONE (21:32)
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
[2019-08-24] MEDS ORDERED: Norflex 60 MG/2 ML ONE (21:41)
[2019-08-24] MEDS ORDERED: TORAdol 30 mg Injection ONE (21:41)
--- NOTE | 2019-08-24 22:32 | XRAY ---
Indication: Head injury following fall. Multiple contiguous axial images obtained through the head without contrast. Comparison: September 15, 2018. Again normal appearing brain parenchyma, ventricles, and bony calvarium. Visualized paranasal sinuses and mastoid air cells are clear. Impression: Continued normal CT head without contrast exam. Comment: Preliminary interpretation was made by [facility]. No critical discrepancy.
[2019-08-24] MEDS ORDERED: MORPHINE SULFATE 4 MG INJ IM ONE (22:37)
[2019-08-24] MEDS ORDERED: MORPHINE SULFATE 4 MG INJ ONE (22:49)
[2019-08-24 23:03] VITALS: BP 146/83; PULSE 84; O2SAT 99
--- NOTE | 2019-08-25 06:59 | XRAY ---
Indication: Neck pain. Head injury following fall. Multiple contiguous axial images obtained through the cervical spine. Sagittal and coronal reformatted images obtained. Comparison: September 15, 2018. Axial images again negative for acute fracture, suspicious bone lesions, or spinal canal stenosis. Stable moderate left C3-C4 degenerative facet hypertrophy. Sagittal and coronal reformatted images again demonstrates lordotic straightening, positional versus paraspinal spasm. Vertebral body heights/disc spaces maintained. No acute compression fracture, subluxation, or jumped facet. Normal appearing craniocervical junction. Visualized noncontrasted soft tissues unremarkable. Impression: 1. Again cervical lordotic straightening, positional versus paraspinal spasm. 2. Continued negative for acute fracture/subluxation. 3. Stable C3-C4 degenerative facet hypertrophy. Comment: Preliminary interpretation was made by [facility]. No critical discrepancy.
== END 2019-08-24 23:17 ==
LOC: ED 20:58
DX: S16.1XXA Strain of muscle, fascia and tendon at neck level, initial encounter (principal); V94.0XXA Hitting object or bottom of body of water due to fall from watercraft, initial encounter; Y93.89 Activity, other specified; Y92.89 Other specified places as the place of occurrence of the external cause; Z79.899 Other long term (current) drug therapy; I10 Essential (primary) hypertension; E11.9 Type 2 diabetes mellitus without complications; Z72.0 Tobacco use
CPT/HCPCS: 70450; 72125; 96372; 99284; J1885; J2270; J2360

== ENCOUNTER 2019-10-03 20:23 | Emergency (ER) | payer BC ==
[2019-10-03] MEDS ORDERED: Zofran 4 MG/2 ML VIAL IV ONE (20:51)
[2019-10-03] MEDS ORDERED: Hydromorphone 1 mg/ml Ampule IV ONE (20:51)
--- NOTE | 2019-10-03 20:51 | ERPHSYRPT ---
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 Patient's headaches have been worked up with MRI in the past. Patient is here today with a headache that is similar to her previous headache. Headache is of gradual onset. Headache is not the worst of her life. No trauma no fevers. No nausea or vomiting. Headache started approximately 3 days ago. Headache started at her shoulder blades and gradually migrated up to the top of her head. Headache has been constant. Patient took her Toradol and muscle relaxer however this was not helpful. Pain currently rated 9 out of 10. No associated numbness tingling or weakness. Dates that Dilaudid and Zofran usually resolve her headache. Patient was requesting this cocktail at this time. Patient voices no other complaints at this time. Timing/Duration: day(s) Quality: aching (3 days ago.) Head Pain Location: occipital Severity of Pain-Max: moderate Severity of Pain-Current: moderate Recent Head Trauma: no recent headache/trauma Modifying Factors: Improves With: noise Associated Symptoms: No confusion, No dizziness, No fatigue, No facial pain, No fever/chills, No flushing, No light-headedness, No loss of consciousness, No nausea/vomiting, No nasal congestion, No nasal drainage, No neck pain, No numbness in legs/feet, No rash, No sweating, No scotoma, No seizures, No sinus infection, No sensitive to light, No speech problems, No stiff neck, No trouble walking, No vision changes, No visual disturbance, No weakness Previous symptoms: same symptoms as today Allergies/Adverse Reactions: cyclobenzaprine [From Flexeril] Allergy (Verified 10/03/19 20:33) morphine Allergy (Verified 10/03/19 20:33) prochlorperazine [From Compazine] Adverse Reaction (Verified 10/03/19 20:33) Home Medications: Doxepin HCl 300 mg PO DAILY 11/14/16 [History] Lisinopril 20 mg [Zestril 20 MG] 20 mg PO BID 11/14/16 [History] Venlafaxine HCl [Effexor Xr] 300 mg PO HS 11/14/16 [History] Esomeprazole Magnesium [Nexium] 20 mg PO DAILY 12/30/16 [History] Metoprolol Tartrate 50 mg [Lopressor 50 MG] 50 mg PO HS 09/18/18 [History] Quetiapine Fumarate 300 mg PO HS 09/18/18 [History] Venlafaxine HCl [Venlafaxine HCl ER] 75 mg PO DAILY 09/18/18 [History] Zolpidem Tartrate 10 mg PO HS PRN PRN 09/18/18 [History] hydroCHLOROthiazide [Hydrochlorothiazide] 25 mg PO DAILY 09/18/18 [History] Linaclotide [Linzess] 72 mcg PO DAILY 12/16/18 [History] Insulin Degludec [Tresiba] 10 unit SQ DAILY 08/24/19 [History] Hx Tetanus, Diphtheria Vaccination/Date Given: Yes Hx Influenza Vaccination/Date Given: Yes Hx Pneumococcal Vaccination/Date Given: No Travel Risk - International Travel Have you traveled outside of the country in past 3 weeks: No - Coronavirus Screening Are you exhibiting any of the following symptoms?: Yes Symptoms: Headaches/Body Aches/Fatigue Close contact with a COVID-19 positive Pt in past 14-21 Days: No - Review of Systems Constitutional: No Symptoms, No Fever, No Chills Eyes: No Symptoms Ears, Nose, & Throat: No Symptoms Respiratory: No Symptoms, No Cough, No Dyspnea Cardiac: No Symptoms, No Chest Pain, No Edema, No Syncope Abdominal/Gastrointestinal: No Symptoms, No Abdominal Pain, No Nausea, No Vomiting, No Diarrhea Genitourinary Symptoms: No Symptoms, No Dysuria Musculoskeletal: No Symptoms, No Back Pain, No Neck Pain Skin: No Symptoms, No Rash Neurological: No Symptoms, No Dizziness, No Focal Weakness, No Sensory Changes Psychological: No Symptoms Endocrine: No Symptoms Hematologic/Lymphatic: No Symptoms Immunological/Allergic: No Symptoms All Other Systems: Reviewed and Negative - Past Medical History Pertinent Past Medical History: No Neurological History: Other ENT History: No Pertinent History Cardiac History: High Cholesterol, Hypertension Respiratory History: No Pertinent History Endocrine Medical History: Diabetes Type II Musculoskeletal History: Arthritis, Osteoarthritis GI Medical History: Esophageal Disorder, GERD, Gallbladder Disease History: No Pertinent History Psycho-Social History: Bipolar, Depression Female Reproductive Disorders: Endometriosis Other Medical History: SHE IS TAKING NORCO EVERY SIX HOURS; PERKOCET (HASN'T TAKEN FOR 4 DAYS), AND TAKES TORDOL MAYBE 1X/DAY FOR BREAKTHROUGH PAIN. - Past Surgical History Past Surgical History: Yes Neuro Surgical History: No Pertinent History Cardiac: No Pertinent History Respiratory: No Pertinent History Gastrointestinal: Cholecystectomy Genitourinary: No Pertinent History Musculoskeletal: Orthopedic Surgery Female Surgical History: Hysterectomy Other Surgical History: r foot,carpal tunnel,rt and lt wrist ligament repair - Social History Smoking Status: Light tobacco smoker How long have you smoked: 30 yrs Exposure to second hand smoke: Yes Drug Use: none Patient Lives Alone: No - Female History Hx Now: No - Nursing Vital Signs Nursing Vital Signs: Initial Vital Signs Temperature 98.9 F 10/03/19 20:37 Pulse Rate 98 H 10/03/19 20:37 Respiratory Rate 22 10/03/19 20:37 Blood Pressure 146/105 10/03/19 20:37 O2 Sat by Pulse Oximetry 98 10/03/19 20:37 Pain Scale Pain Intensity 9 - Physical Exam General Appearance: no apparent distress Eye Exam: PERRL/EOMI Ears, Nose, Throat Exam: normal ENT inspection, moist mucous membranes Neck Exam: normal inspection, supple, full range of motion, No meningismus Respiratory Exam: normal breath sounds, lungs clear Cardiovascular Exam: regular rate/rhythm, normal heart sounds Gastrointestinal/Abdominal Exam: soft, No tenderness, No distention Back Exam: normal inspection, normal range of motion Extremity Exam: normal inspection, normal range of motion 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, 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, 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: normal hearing, normal speech, PERRL, tongue midline, No abnormal eye position, No abnormal gag reflex, No abnormal pupil position, No abnormal speech, No facial asymmetry, No facial droop, No facial paresthesias, No facial weakness, No gaze palsy, No hearing deficit (R), No hearing deficit (L), No tongue deviation to R, No tongue deviation to L Coordination/Gait Exam: normal cerebellar function Motor/Sensory Exam: no motor deficit, no sensory deficit Skin Exam: normal color, warm, dry, No rash SpO2 Interpretation: normal SpO2: 98 O2 Delivery: Room Air - Course Nursing assessment & vital signs reviewed: Yes Ordered Tests: Active Orders 24 hr Category Date Time Status IV Insertion STAT Care 10/03/19 20:51 Active Medication Summary Discontinued Medications Generic Name Dose Route Start Last Admin Trade Name Aquiles PRN Reason Stop Dose Admin Hydromorphone HCl 1 mg 10/03/19 20:51 10/03/19 21:00 Hydromorphone 1 Mg/Ml Ampule IV 10/03/19 20:52 1 mg STAT ONE Administration Hydromorphone HCl Confirm 10/03/19 20:59 Hydromorphone 1 Mg/Ml Ampule Administered 10/03/19 21:00 Dose 1 mg .ROUTE .STK-MED ONE Ondansetron HCl 4 mg 10/03/19 20:51 10/03/19 20:59 Zofran 4 Mg/2 Ml Vial IV 10/03/19 20:52 4 mg STAT ONE Administration Ondansetron HCl Confirm 10/03/19 20:58 Zofran 4 Mg/2 Ml Vial Administered 10/03/19 20:59 Dose 4 mg .ROUTE .STK-MED ONE - Progress Progress: improved Air Movement: good Progress Note: 10/03/19 21:57 Patient reassessed. Repeat neuro exam within normal limits. Headache essentially resolved. Patient requesting discharge. Patient agrees to follow-up with her primary care doctor within 48 hours for reevaluation. Blood Culture(s) Obtained: No Antibiotics given: No Counseled pt/family regarding: diagnosis, need for follow-up - Departure Departure Disposition: Home Clinical Impression: Tension headache Condition: Stable Critical Care Time: No Referrals: ALIYA ROMERO [Primary Care Provider] - Additional Instructions: Discharge/Care Plan CALDERONMATHIEU SAWYER was seen on 10/03/19 in the Emergency Room. The patient was counseled regarding Diagnosis,Lab results, Imaging studies, need for follow up and when to return to the Emergency Room. Prescriptions given: Discharge Note I have spoken with the patient and/or caregivers. I have explained the patient's condition, diagnosis and treatment plan based on the information available to me at this time. I have answered the patient's and/or caregiver's questions and addressed any concerns. The patient and/or caregivers have as good understanding of the patient's diagnosis, condition and treatment plan as can be expected at this point. The vital signs have been stable. The patient's condition is stable and appropriate for discharge from the emergency department. The patient will pursue further outpatient evaluation with the primary care physician or other designated or consulting physician as outlined in the discharge instructions. The patient and/or caregivers are agreeable to this plan of care and follow-up instructions have been explained in detail. The patient and/or caregivers have received these instruction. The patient/and or caregivers are aware that any significant change in condition or worsening of symptoms should prompt an immediate return to this or the closest emergency department or call 911.
[2019-10-03] MEDS ORDERED: Zofran 4 MG/2 ML VIAL ONE (20:58)
[2019-10-03] MEDS ORDERED: Hydromorphone 1 mg/ml Ampule ONE (20:59)
[2019-10-03 22:09] VITALS: BP 125/97; PULSE 103; O2SAT 97
== END 2019-10-03 22:08 | disposition home or self-care (01) ==
LOC: ED 20:23
DX: G44.209 Tension-type headache, unspecified, not intractable (principal)
CPT/HCPCS: 36000; 96374; 96375; 99284; J1170; J2405

== ENCOUNTER 2019-11-14 15:49 | Emergency (ER) | payer BC ==
--- NOTE | 2019-11-14 15:55 | ERPHSYRPT ---
- History of Present Illness Time Seen by Provider: 11/14/19 15:55 Source: patient Exam Limitations: no limitations Physician History: This is an overweight 49-year-old white female has a history of tension headaches and chronic recurring migraine headaches. She presents with a 3-day history of headache. She denies any trauma to the head. Is not the worst headache she is ever had. Patient does not have a pain management doctor but has an appointment to see 1 in November. She could not give me the date or the person's name but the doctor is out of [facility]. Patient does not have a neurologist. In reviewing the patient's emergency department visits here at [facility] she has several visits for various types of headaches. I also reviewed her list of narcotic medication refills and she has refilled [place] several times since 10/04/2019. States Dilaudid and Zofran helps resolve most of her headaches Medicare a half a milligram of intramuscular Ativan Timing/Duration: day(s) (3) Quality: aching, throbbing Head Pain Location: global Severity of Pain-Max: moderate Severity of Pain-Current: moderate Recent Head Trauma: frequent headaches, chronic headaches Modifying Factors: Improves With: other (She feels this is more of a tension headache.) Associated Symptoms: denies symptoms Previous symptoms: same symptoms as today Allergies/Adverse Reactions: cyclobenzaprine [From Flexeril] Allergy (Verified 11/14/19 16:14) morphine Allergy (Verified 11/14/19 16:14) prochlorperazine [From Compazine] Adverse Reaction (Verified 11/14/19 16:14) Home Medications: Doxepin HCl 300 mg PO DAILY 11/14/16 [History] Lisinopril 20 mg [Zestril 20 MG] 20 mg PO BID 11/14/16 [History] Venlafaxine HCl [Effexor Xr] 300 mg PO HS 11/14/16 [History] Metoprolol Tartrate 50 mg [Lopressor 50 MG] 50 mg PO HS 09/18/18 [History] Quetiapine Fumarate 300 mg PO HS 09/18/18 [History] Venlafaxine HCl [Venlafaxine HCl ER] 75 mg PO DAILY 09/18/18 [History] Zolpidem Tartrate 10 mg PO HS PRN PRN 09/18/18 [History] hydroCHLOROthiazide [Hydrochlorothiazide] 25 mg PO DAILY 09/18/18 [History] Linaclotide [Linzess] 72 mcg PO DAILY 12/16/18 [History] Insulin Degludec [Tresiba] 10 unit SQ DAILY 08/24/19 [History] Empagliflozin [Jardiance] 10 mg PO 11/14/19 [History] carisoprodoL [Carisoprodol] 1 ea DAILY 11/14/19 [History] Hx Tetanus, Diphtheria Vaccination/Date Given: Yes Hx Influenza Vaccination/Date Given: Yes Hx Pneumococcal Vaccination/Date Given: No Travel Risk - International Travel Have you traveled outside of the country in past 3 weeks: No - Coronavirus Screening Are you exhibiting any of the following symptoms?: No Close contact with a COVID-19 positive Pt in past 14-21 Days: No - Review of Systems Constitutional: No Symptoms Eyes: No Symptoms Ears, Nose, & Throat: No Symptoms Respiratory: No Symptoms Cardiac: No Symptoms Abdominal/Gastrointestinal: No Symptoms Genitourinary Symptoms: No Symptoms Musculoskeletal: No Symptoms Skin: No Symptoms Neurological: Headache Psychological: No Symptoms Endocrine: No Symptoms Hematologic/Lymphatic: No Symptoms Immunological/Allergic: No Symptoms All Other Systems: Reviewed and Negative - Past Medical History Pertinent Past Medical History: No Neurological History: Other ENT History: No Pertinent History Cardiac History: High Cholesterol, Hypertension Respiratory History: No Pertinent History Endocrine Medical History: Diabetes Type II Musculoskeletal History: Arthritis, Osteoarthritis GI Medical History: Esophageal Disorder, GERD, Gallbladder Disease History: No Pertinent History Psycho-Social History: Bipolar, Depression Female Reproductive Disorders: Endometriosis Other Medical History: SHE IS TAKING NORCO EVERY SIX HOURS; PERKOCET (HASN'T TAKEN FOR 4 DAYS), AND TAKES TORDOL MAYBE 1X/DAY FOR BREAKTHROUGH PAIN. - Past Surgical History Past Surgical History: Yes Neuro Surgical History: No Pertinent History Cardiac: No Pertinent History Respiratory: No Pertinent History Gastrointestinal: Cholecystectomy Genitourinary: No Pertinent History Musculoskeletal: Orthopedic Surgery Female Surgical History: Hysterectomy Other Surgical History: r foot,carpal tunnel,rt and lt wrist ligament repair - Social History Smoking Status: Light tobacco smoker How long have you smoked: 30 yrs Exposure to second hand smoke: Yes Drug Use: none Patient Lives Alone: No - Nursing Vital Signs Nursing Vital Signs: Initial Vital Signs Temperature 97.2 F 11/14/19 16:04 Pulse Rate 109 H 11/14/19 16:04 Respiratory Rate 18 11/14/19 16:04 Blood Pressure 167/97 11/14/19 16:04 O2 Sat by Pulse Oximetry 98 11/14/19 16:04 Pain Scale Pain Intensity 7 - Physical Exam General Appearance: no apparent distress, alert, anxiety Eye Exam: PERRL/EOMI, eyes nml inspection Ears, Nose, Throat Exam: normal ENT inspection, moist mucous membranes Neck Exam: normal inspection, non-tender, supple, full range of motion Respiratory Exam: airway intact, No chest tenderness, No respiratory distress Gastrointestinal/Abdominal Exam: No tenderness Back Exam: normal inspection, normal range of motion, No CVA tenderness, No vertebral tenderness Extremity Exam: normal inspection, normal range of motion, pelvis stable 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 I told her it was important for all those specialist to be in communication with one another. I explained to her that I would not be prescribing her more narcotics if she returns to this emergency department having not been evaluated and managed by a pain specialist and neurologist. She understands and agrees that she should see both a pain specialist and a neurologist. Blood Culture(s) Obtained: No Antibiotics given: No Counseled pt/family regarding: diagnosis, need for follow-up - Departure Departure Disposition: Home Clinical Impression: Chronic headache Condition: Stable Critical Care Time: No Referrals: ALIYA ROMERO [Primary Care Provider] - Additional Instructions: Call your primary care doctor tomorrow morning to arrange referral to a pain management doctor as well as a neurologist. Have your primary care doctor manage your chronic headaches until you are evaluated and managed by a neurologist and pain specialist.
[2019-11-14] MEDS ORDERED: Hydromorphone 1 mg/ml Injection IM ONE (16:42)
[2019-11-14] MEDS ORDERED: ZOFRAN ODT 4 MG PO ONE (16:43)
[2019-11-14] MEDS ORDERED: ZOFRAN ODT 4 MG ONE (16:58)
[2019-11-14] MEDS ORDERED: Hydromorphone 1 mg/ml Injection ONE (16:58)
[2019-11-14 17:10] VITALS: BP 148/90; PULSE 99; O2SAT 95
== END 2019-11-14 18:30 | disposition home or self-care (01) ==
LOC: ED 15:49
DX: R51.9 Headache, unspecified (principal); Z79.899 Other long term (current) drug therapy
CPT/HCPCS: 96372; 99284; J1170; Q0162

== ENCOUNTER 2020-01-29 08:05 | Day surgery (SDC) | payer BC ==
[2020-01-29] MEDS ORDERED: LIDOCAINE HCL 2% 100 MG/5 ML IJ ONE (08:06)
[2020-01-29] MEDS ORDERED: Decadron 4 MG INJ IV ONE (08:06)
[2020-01-29] MEDS ORDERED: Xylocaine 1% Vial 30 ML PF IJ ONE (08:06)
[2020-01-29] MEDS ORDERED: DIPRIVAN 200 MG/20 ML IV ONE ×2 (09:40→10:07)
[2020-01-29] MEDS ORDERED: Ketamine HCl 50 MG/ML ONE ×2 (09:40→10:07)
[2020-01-29] MEDS ORDERED: MORPHINE SULFATE 10 MG/ML ONE (10:09)
--- NOTE | 2020-01-29 12:12 | XRAY ---
Indication: Right C2-C4 MBB. Intraoperative fluoroscopy was provided for 57 seconds. 2 digital spot images submitted for interpretation demonstrate posterior needle tips projecting over the expected right C2-C4 nerve roots. Correlate with intraoperative findings/report.
--- NOTE | 2020-01-29 12:16 | XRAY ---
57 seconds fluoroscopy time in surgery for right C2-C4 MBB.
[2020-01-29] MEDS ORDERED: Lactated Ringers 1,000 ML IV ONE (16:04)
== END 2020-01-29 10:26 | disposition home or self-care (01) ==
LOC: SDC-PAIN 08:05
PROVIDERS: ATTEND Psychiatry & Neurology Pain Medicine
DX: M47.812 Spondylosis without myelopathy or radiculopathy, cervical region (principal); E11.9 Type 2 diabetes mellitus without complications; I10 Essential (primary) hypertension; K21.9 Gastro-esophageal reflux disease without esophagitis; F31.9 Bipolar disorder, unspecified; Z79.899 Other long term (current) drug therapy
CPT/HCPCS: 64490; 64491; 72020; 77002; 82947; 82962; J1100; J2001; J2270; J2704

== ENCOUNTER 2020-02-17 01:40 | Emergency (ER) | payer BC ==
[2020-02-17] MEDS ORDERED: Sodium Chloride 0.9% 1000 ML 1,000 ML IV STA (01:57)
[2020-02-17] MEDS ORDERED: Zofran 4 MG/2 ML VIAL IV ONE (01:57)
[2020-02-17] MEDS ORDERED: SUBLIMAZE 100 MCG/2 ML IV ONE (01:57)
[2020-02-17] MEDS ORDERED: Zofran 4 MG/2 ML VIAL ONE (02:11)
[2020-02-17] MEDS ORDERED: SUBLIMAZE 100 MCG/2 ML ONE (02:12)
[2020-02-17] MEDS ORDERED: Sodium Chloride 0.9% 1000 ML 1,000 ML ONE (02:12)
[2020-02-17 02:19] LABS: Absolute Neutrophil Ct (ANC) 7.91 (1.4-6.9); BASOPHIL % 0.2 % (0.0-0.4); Basophil (Absolute #) 0.02 (0-0.4); Eosinophil (Absolute #) 0.23 (0-0.5); Hematocrit 48.9 % (35-47); Hemoglobin 15.9 gm/dl (12.0-16.0); Lymphocytes % 25.7 % (24.0-44.0); Mean Cell Volume 86.9 fl (78-100); Mean Corpuscular Hemoglobin 28.2 pg (26-32); Mean Corpuscular Hgb Concent. 32.5 g/dl (32-36); Mean Platelet Volume 8.7 fl (7.5-11.0); Monocyte (Absolute #) 0.52 (0.0-1.3); Monocytes % 4.5 % (0.0-12.0); Neutrophil % 67.6 % (36.0-66.0); Platelet Count 399 K/mm3 (150-450); Red Blood Count 5.63 M/mm3 (4.1-5.4); Red Cell Distribution Width 14.6 % (11.5-14.0); White Blood Count 11.7 K/mm3 (4.0-10.5)
[2020-02-17 02:23] LABS: Appearance SLIGHTLY CLOUDY (CLEAR); Bilirubin NEGATIVE (NEGATIVE); Blood SMALL Ery/ul (0-5); Epithelial Cells RARE /HPF (FEW); Glucose >=500 mg/dL (NEGATIVE); Ketones NEGATIVE (NEGATIVE); Leukocyte Esterase LARGE (NEGATIVE); Mucus SLIGHT /HPF (NEGATIVE); Nitrite NEGATIVE (NEGATIVE); Protein,Urine Dip NEGATIVE (Negative); Specific Gravity 1.018 (1.005-1.025); Urobilinogen NEGATIVE mg/dL (0-1); WBC 26-50 /HPF (0-5)
[2020-02-17 02:27] LABS: INR 1.05 (0.8-3.0); PROTIME 11.9 SECONDS (9.95-12.35)
[2020-02-17 02:32] LABS: ALBUMIN 4.8 g/dL (3.5-5.0); ALKALINE PHOSPHATASE 146 U/L (38-126); AMYLASE 56 U/L (30-110); ANION GAP 13.2 MEQ/L (5-15); BLOOD UREA NITROGEN 15 mg/dL (7-17); CHLORIDE 105 mmol/L (98-107); Calcium 10.2 mg/dL (8.4-10.2); Carbon Dioxide 23 mmol/L (22-30); Creatinine 1 0.97 mg/dL (0.52-1.04); EST GLOMERULAR FILTRATION RATE > 60.0 ML/MIN; Glucose 137 mg/dL (74-106); LIPASE 62 U/L (23-300); Potassium 3.7 mmol/L (3.5-5.1); SGOT/AST 25 U/L (14-36); SGPT/ALT 22 U/L (0-35); SODIUM 138 mmol/L (137-145); Total Protein 9.3 g/dL (6.3-8.2)
[2020-02-17 03:18] VITALS: BP 128/83; PULSE 84; O2SAT 95
[2020-02-17] MEDS ORDERED: NORCO 5/325 MG PO ONE ×2 (03:22→03:37)
[2020-02-17] MEDS ORDERED: BACTRIM DS TABLET PO STA (03:25)
[2020-02-17] MEDS ORDERED: NORCO 5/325 MG ONE ×2 (03:27→03:40)
[2020-02-17] MEDS ORDERED: BACTRIM DS TABLET PO ONE (03:27)
--- NOTE | 2020-02-17 03:30 | ERPHSYRPT ---
- History of Present Illness Time Seen by Provider: 02/17/20 01:50 Historian: patient Exam Limitations: no limitations Patient Subjective Stated Complaint: pt c/o abd pain. Triage Nursing Assessment: pt c/o abd pain. Pt states, "I had bm around 8pm with blood in stool, lot of blood, bright red". Pt's abd is obese, round, soft with active bs x4 quad, tender on palpation. Pt states, "I took a stool softener yesterday because I haven't gone for a couple of days". Physician History: Patient is a 49-year-old white female who presents with a complaint of abdominal pain which is generalized bowel movement she did have some bright red blood in her stool. She was seen a few days ago and was found to be constipated was treated but has not had good results. The pain tonight started approximately 8 hours prior to arrival. She complains of swelling and distention of the upper abdomen. She her surgical history includes hysterectomy and gallbladder and she is an insulin-dependent diabetic. Timing/Duration: hour(s) (8) Activities at Onset: none Quality: cramping, throbbing Abdominal Pain Onset Location: generalized abdomen Severity of Pain-Max: moderate Severity of Pain-Current: mild Modifying Factors: Improves With: nothing Associated Symptoms: diarrhea Previous symptoms: no prior history Allergies/Adverse Reactions: cyclobenzaprine [From Flexeril] Allergy (Verified 02/17/20 02:00) morphine Allergy (Verified 02/17/20 02:00) prochlorperazine [From Compazine] Adverse Reaction (Verified 02/17/20 02:00) Home Medications: Doxepin HCl 300 mg PO DAILY 11/14/16 [History] Lisinopril 20 mg [Zestril 20 MG] 20 mg PO DAILY 11/14/16 [History] Venlafaxine HCl [Effexor Xr] 300 mg PO HS 11/14/16 [History] Venlafaxine HCl [Venlafaxine HCl ER] 75 mg PO DAILY 09/18/18 [History] Zolpidem Tartrate 10 mg PO HS PRN PRN 09/18/18 [History] Insulin Degludec [Tresiba] 30 unit SQ DAILY 08/24/19 [History] Empagliflozin [Jardiance] 10 mg PO DAILY 11/14/19 [History] carisoprodoL [Carisoprodol] 1 ea PO DAILY 11/14/19 [History] Dexlansoprazole [Dexilant] 30 mg PO HS 02/17/20 [History] Hx Tetanus, Diphtheria Vaccination/Date Given: Yes Hx Influenza Vaccination/Date Given: Yes Hx Pneumococcal Vaccination/Date Given: No Immunizations Up to Date: Yes Travel Risk - International Travel Have you traveled outside of the country in past 3 weeks: No - Coronavirus Screening Are you exhibiting any of the following symptoms?: No - Review of Systems Constitutional: No Fever, No Chills Eyes: No Symptoms Ears, Nose, & Throat: No Symptoms Respiratory: No Cough, No Dyspnea Cardiac: No Chest Pain, No Edema, No Syncope Abdominal/Gastrointestinal: Abdominal Pain, Constipation, Hematochezia, No Nausea, No Vomiting, No Diarrhea Genitourinary Symptoms: No Dysuria Musculoskeletal: No Back Pain, No Neck Pain Skin: No Rash Neurological: No Dizziness, No Focal Weakness, No Sensory Changes Psychological: No Symptoms Endocrine: No Symptoms All Other Systems: Reviewed and Negative - Past Medical History Pertinent Past Medical History: No Neurological History: Other ENT History: No Pertinent History Cardiac History: High Cholesterol, Hypertension Respiratory History: No Pertinent History Endocrine Medical History: Diabetes Type II Musculoskeletal History: Arthritis, Osteoarthritis GI Medical History: Esophageal Disorder, GERD, Gallbladder Disease History: No Pertinent History Psycho-Social History: Bipolar, Depression Female Reproductive Disorders: Endometriosis Other Medical History: SHE IS TAKING NORCO EVERY SIX HOURS; PERKOCET (HASN'T TAKEN FOR 4 DAYS), AND TAKES TORDOL MAYBE 1X/DAY FOR BREAKTHROUGH PAIN. - Past Surgical History Past Surgical History: Yes Neuro Surgical History: No Pertinent History Cardiac: No Pertinent History Respiratory: No Pertinent History Gastrointestinal: Cholecystectomy Genitourinary: No Pertinent History Musculoskeletal: Orthopedic Surgery Female Surgical History: Hysterectomy Other Surgical History: r foot,carpal tunnel,rt and lt wrist ligament repair - Social History Smoking Status: Current every day smoker How long have you smoked: 40 yrs Exposure to second hand smoke: Yes Drug Use: none Patient Lives Alone: No - Nursing Vital Signs Nursing Vital Signs: Initial Vital Signs Temperature 98.5 F 02/17/20 01:48 Pulse Rate 104 H 02/17/20 01:48 Respiratory Rate 18 02/17/20 01:48 Blood Pressure 137/103 02/17/20 01:48 O2 Sat by Pulse Oximetry 137 H 02/17/20 01:48 Pain Scale Pain Intensity 6 - Physical Exam General Appearance: mild distress, alert Eye Exam: PERRL/EOMI, eyes nml inspection Ears, Nose, Throat Exam: normal ENT inspection, pharynx normal, moist mucous membranes Neck Exam: normal inspection, non-tender, supple, full range of motion Respiratory Exam: normal breath sounds, lungs clear, No respiratory distress Cardiovascular Exam: regular rate/rhythm, normal heart sounds Gastrointestinal/Abdomen Exam: normal bowel sounds, tenderness, distention, guarding, No mass, No rebound Rectal Exam: deferred Back Exam: normal inspection, normal range of motion, No CVA tenderness, No vertebral tenderness Extremity Exam: normal inspection, normal range of motion, pelvis stable Neurologic Exam: alert, 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, cooperative, normal mood/affect, nml cerebellar function, sensation nml, No motor deficits Skin Exam: normal color, warm, dry SpO2 Interpretation: normal SpO2: 95 O2 Delivery: Room Air - Course Nursing assessment & vital signs reviewed: Yes - CT Exams Abdomen/Pelvis CT Interpretation: Tele-radiologist Report, Other (CT scan is negative other than moderate retained stool) Ordered Tests: Active Orders 24 hr Category Date Time Status IV Insertion STAT Care 02/17/20 01:57 Active ABDOMEN AND PELVIS W CONTRAST [CT] Stat Exams 02/17/20 01:58 Taken CHEST 1 VIEW (PORTABLE) Stat Exams 02/17/20 01:58 Taken AMYLASE Stat Lab 02/17/20 02:10 Completed CBC W DIFF Stat Lab 02/17/20 02:10 Completed CMP Stat Lab 02/17/20 02:10 Completed CULTURE,URINE Stat Lab 02/17/20 02:10 Received FECAL OCCULT BLOOD - SCREENING Stat Lab 02/17/20 01:57 Ordered LIPASE Stat Lab 02/17/20 02:10 Completed Lactic Acid Stat Lab 02/17/20 02:25 Completed PROTIME WITH INR Stat Lab 02/17/20 02:10 Completed UA W/RFX UR CULTURE Stat Lab 02/17/20 02:10 Completed Medication Summary Generic Name Dose Route Start Last Admin Trade Name Freq PRN Reason Stop Dose Admin Polyethylene Glycol/Electrolytes 4,000 ml 02/17/20 14:00 Golytely Solution 4000 Ml PO 02/17/20 14:01 ONCE@1400 ONE Discontinued Medications Generic Name Dose Route Start Last Admin Trade Name Aquiles PRN Reason Stop Dose Admin Hydrocodone Bitart/Acetaminophen 1 tab 02/17/20 03:22 02/17/20 03:28 [place] 5/325 Mg PO 02/17/20 03:23 1 tab STAT ONE Administration Hydrocodone Bitart/Acetaminophen Confirm 02/17/20 03:27 [place] 5/325 Mg Administered 02/17/20 03:28 Dose 1 tab .ROUTE .STK-MED ONE Fentanyl Citrate 50 mcg 02/17/20 01:57 02/17/20 02:14 Sublimaze 100 Mcg/2 Ml IV 02/17/20 01:58 50 mcg STAT ONE Administration Fentanyl Citrate Confirm 02/17/20 02:12 Sublimaze 100 Mcg/2 Ml Administered 02/17/20 02:13 Dose 100 mcg .ROUTE .STK-MED ONE Sodium Chloride 1,000 mls @ 999 mls/hr 02/17/20 01:57 02/17/20 02:14 Sodium Chloride 0.9% 1000 Ml IV 02/17/20 02:57 999 mls/hr .Q1H1M STA Administration Sodium Chloride Confirm 02/17/20 02:12 Sodium Chloride 0.9% 1000 Ml Administered 02/17/20 02:13 Dose 1,000 mls @ ud .ROUTE .STK-MED ONE Ondansetron HCl 4 mg 02/17/20 01:57 02/17/20 02:14 Zofran 4 Mg/2 Ml Vial IV 02/17/20 01:58 4 mg STAT ONE Administration Ondansetron HCl Confirm 02/17/20 02:11 Zofran 4 Mg/2 Ml Vial Administered 02/17/20 02:12 Dose 4 mg .ROUTE .STK-MED ONE Trimethoprim/Sulfamethoxazole Confirm 02/17/20 03:27 Bactrim Ds Tablet Administered 02/17/20 03:28 Dose 1 tab PO .STK-MED ONE Trimethoprim/Sulfamethoxazole 1 tab 02/17/20 03:25 Bactrim Ds Tablet PO 02/17/20 03:26 STAT STA Lab/Rad Data: Laboratory Result Diagrams 02/17/20 02:10 02/17/20 02:10 Laboratory Results 02/17/20 02/17/20 02/17/20 Range/Units 02:25 02:10 02:10 WBC (4.0-10.5) K/mm3 RBC (4.1-5.4) M/mm3 Hgb (12.0-16.0) gm/dl Hct (35-47) % MCV (78-100) fl MCH (26-32) pg MCHC (32-36) g/dl RDW (11.5-14.0) % Plt Count (150-450) K/mm3 MPV (7.5-11.0) fl Gran % (36.0-66.0) % Eos # (Auto) (0-0.5) Absolute Lymphs (auto) (1.0-4.6) Absolute Monos (auto) (0.0-1.3) Lymphocytes % (24.0-44.0) % Monocytes % (0.0-12.0) % Eosinophils % (0.00-5.0) % Basophils % (0.0-0.4) % Absolute Granulocytes (1.4-6.9) Basophils # (0-0.4) PT 11.9 (9.95-12.35) SECONDS INR 1.05 (0.8-3.0) Sodium (137-145) mmol/L Potassium (3.5-5.1) mmol/L Chloride (98-107) mmol/L Carbon Dioxide (22-30) mmol/L Anion Gap (5-15) MEQ/L BUN (7-17) mg/dL Creatinine (0.52-1.04) mg/dL Estimated GFR ML/MIN Glucose (74-106) mg/dL Lactic Acid 1.2 (0.4-2.0) Calcium (8.4-10.2) mg/dL Total Bilirubin (0.2-1.3) mg/dL AST (14-36) U/L ALT (0-35) U/L Alkaline Phosphatase (38-126) U/L Serum Total Protein (6.3-8.2) g/dL Albumin (3.5-5.0) g/dL Amylase (30-110) U/L Lipase (23-300) U/L Urine Color YELLOW (YELLOW) Urine Appearance SLIGHTLY CLOUDY (CLEAR) Urine pH 6.0 (5-6) Ur Specific [place] 1.018 (1.005-1.025) Urine Protein NEGATIVE (Negative) Urine Ketones NEGATIVE (NEGATIVE) Urine Blood SMALL (0-5) Stanley/ul Urine Nitrite NEGATIVE (NEGATIVE) Urine Bilirubin NEGATIVE (NEGATIVE) Urine Urobilinogen NEGATIVE (0-1) mg/dL Ur Leukocyte Esterase LARGE (NEGATIVE) Urine WBC (Auto) 26-50 (0-5) /HPF Urine RBC (Auto) 6-10 (0-2) /HPF U Epithel Cells (Auto) RARE (FEW) /HPF Urine Bacteria (Auto) NONE (NEGATIVE) /HPF Urine Mucus (Auto) SLIGHT (NEGATIVE) /HPF Urine Culture Reflexed YES (NO) Urine Glucose >=500 (NEGATIVE) mg/dL 02/17/20 02/17/20 Range/Units 02:10 02:10 WBC 11.7 H (4.0-10.5) K/mm3 RBC 5.63 H (4.1-5.4) M/mm3 Hgb 15.9 (12.0-16.0) gm/dl Hct 48.9 H (35-47) % MCV 86.9 (78-100) fl MCH 28.2 (26-32) pg MCHC 32.5 (32-36) g/dl RDW 14.6 H (11.5-14.0) % Plt Count 399 (150-450) K/mm3 MPV 8.7 (7.5-11.0) fl Gran % 67.6 H (36.0-66.0) % Eos # (Auto) 0.23 (0-0.5) Absolute Lymphs (auto) 3.00 (1.0-4.6) Absolute Monos (auto) 0.52 (0.0-1.3) Lymphocytes % 25.7 (24.0-44.0) % Monocytes % 4.5 (0.0-12.0) % Eosinophils % 2.0 (0.00-5.0) % Basophils % 0.2 (0.0-0.4) % Absolute Granulocytes 7.91 H (1.4-6.9) Basophils # 0.02 (0-0.4) PT (9.95-12.35) SECONDS INR (0.8-3.0) Sodium 138 (137-145) mmol/L Potassium 3.7 (3.5-5.1) mmol/L Chloride 105 (98-107) mmol/L Carbon Dioxide 23 (22-30) mmol/L Anion Gap 13.2 (5-15) MEQ/L BUN 15 (7-17) mg/dL Creatinine 0.97 (0.52-1.04) mg/dL Estimated GFR > 60.0 ML/MIN Glucose 137 H (74-106) mg/dL Lactic Acid (0.4-2.0) Calcium 10.2 (8.4-10.2) mg/dL Total Bilirubin 0.40 (0.2-1.3) mg/dL AST 25 (14-36) U/L ALT 22 (0-35) U/L Alkaline Phosphatase 146 H (38-126) U/L Serum Total Protein 9.3 H (6.3-8.2) g/dL Albumin 4.8 (3.5-5.0) g/dL Amylase 56 (30-110) U/L Lipase 62 (23-300) U/L Urine Color (YELLOW) Urine Appearance (CLEAR) Urine pH (5-6) Ur Specific [place] (1.005-1.025) Urine Protein (Negative) Urine Ketones (NEGATIVE) Urine Blood (0-5) Stanley/ul Urine Nitrite (NEGATIVE) Urine Bilirubin (NEGATIVE) Urine Urobilinogen (0-1) mg/dL Ur Leukocyte Esterase (NEGATIVE) Urine WBC (Auto) (0-5) /HPF Urine RBC (Auto) (0-2) /HPF U Epithel Cells (Auto) (FEW) /HPF Urine Bacteria (Auto) (NEGATIVE) /HPF Urine Mucus (Auto) (NEGATIVE) /HPF Urine Culture Reflexed (NO) Urine Glucose (NEGATIVE) mg/dL - Progress Progress: improved - Departure Departure Disposition: Home Clinical Impression: Constipation, UTI (urinary tract infection) Condition: Stable Critical Care Time: No Referrals: ALIYA ROMERO [Primary Care Provider] - Instructions: Urinary Tract Infection, Adult (DC), Constipation, Adult (DC) Prescriptions: Smz/Tmp Ds Tablet [Bactrim Ds Tablet] 1 udtab PO BID #14 tablet
[2020-02-17] MEDS ORDERED: Golytely Solution 4000 ML ONE (03:52)
--- NOTE | 2020-02-17 08:48 | XRAY ---
Indication: Abdomen pain and constipation. Blood in stool. Multiple contiguous axial images obtained through the abdomen and pelvis using 80 cc Isovue 370 contrast only. Comparison: January 12, 2019. Lung bases remain clear. Heart is not enlarged. Stomach is distended with food. Noncontrasted stomach and bowel loops appear nonobstructed. Normal appendix. No free fluid/air. There remains mild scattered colonic fecal debris throughout. Again incidental 21.7 cm fatty hepatomegaly, 13.9 cm splenomegaly, cholecystectomy, and hysterectomy. The remaining liver, pancreas, spleen, adrenal glands, kidneys, ureters, and bladder appear unremarkable. Stable minimal aortoiliac calcifications. No AAA or pathologic retroperitoneal lymphadenopathy. Osseous structures intact again with mild degenerative changes throughout the spine. Impression: 1. There is again mild diffuse fecal stasis. 2. Again incidental fatty hepatomegaly and splenomegaly. 3. Remaining CT abdomen/pelvis with contrast exam is negative. Comment: Preliminary interpretation was made by [facility]. No critical discrepancy.
--- NOTE | 2020-02-17 08:50 | XRAY ---
Indication: Chest pain. Comparison: None Portable chest demonstrates normal heart and lungs. Bony thorax intact.
[2020-02-17] MEDS ORDERED: Golytely Solution 4000 ML PO ONE (14:00)
== END 2020-02-17 03:58 | disposition home or self-care (01) ==
LOC: ED 01:40
DX: K59.00 Constipation, unspecified (principal); N39.0 Urinary tract infection, site not specified; R10.9 Unspecified abdominal pain; K92.1 Melena; E11.9 Type 2 diabetes mellitus without complications; Z79.4 Long term (current) use of insulin; I10 Essential (primary) hypertension; E78.00 Pure hypercholesterolemia, unspecified
CPT/HCPCS: 36000; 36415; 71045; 74177; 80053; 81001; 82150; 83605; 83690; 85025; 85610; 87077; 87086; 87186; 96360; 96374; 96375; 99284; J2405; J3010; A9270-GY

== ENCOUNTER 2020-07-13 18:46 | Emergency (ER) | payer BC ==
--- NOTE | 2020-07-13 19:50 | ERPHSYRPT ---
- History of Present Illness Time Seen by Provider: 07/13/20 19:50 Source: patient Exam Limitations: no limitations Patient Subjective Stated Complaint: cough Triage Nursing Assessment: Patient ambulated back to ED and transferred self to bed. Patient A+O X 3. Patient's skin pink, warm and dry. Patient complains of non productive cough since monday. Lungs clear a/p bharath. Patient complains of rib pain 8/10 from coughing. Physician History: For the past 3 days pt has had a severe right sided headache & cough productive of yellow phlegm; for the past 24 hours shortness of air and constant chest heaviness. Pt denies fever, abdominal pain, vomiting. Pt also c/o right sided neck pain and right shoulder pain she thinks resulted from coughing. Allergies/Adverse Reactions: cyclobenzaprine [From Flexeril] Allergy (Verified 07/13/20 19:14) morphine Allergy (Verified 07/13/20 19:14) prochlorperazine [From Compazine] Adverse Reaction (Verified 07/13/20 19:14) Home Medications: Doxepin HCl 300 mg PO DAILY 11/14/16 [History] Lisinopril 20 mg [Zestril 20 MG] 20 mg PO DAILY 11/14/16 [History] Venlafaxine HCl [Effexor Xr] 300 mg PO HS 11/14/16 [History] Venlafaxine HCl [Venlafaxine HCl ER] 75 mg PO DAILY 09/18/18 [History] Zolpidem Tartrate 10 mg PO HS PRN PRN 09/18/18 [History] Insulin Degludec [Tresiba] 30 unit SQ DAILY 08/24/19 [History] Empagliflozin [Jardiance] 10 mg PO DAILY 11/14/19 [History] carisoprodoL [Carisoprodol] 1 ea PO DAILY 11/14/19 [History] Dexlansoprazole [Dexilant] 30 mg PO HS 02/17/20 [History] Hx Tetanus, Diphtheria Vaccination/Date Given: Yes Hx Influenza Vaccination/Date Given: Yes Hx Pneumococcal Vaccination/Date Given: No Immunizations Up to Date: Yes Travel Risk - International Travel Have you traveled outside of the country in past 3 weeks: No - Coronavirus Screening Are you exhibiting any of the following symptoms?: No Close contact with a COVID-19 positive Pt in past 14-21 Days: No - Vaccine Status Have you recieved a Covid-19 vaccination: Yes Drum Carrier: Moderna - Vaccination Dates Date of 2cond Vaccination (if applicable): 06/10/2020 - Review of Systems Constitutional: No Fever Respiratory: Cough, Dyspnea Cardiac: Other (chest heaviness) Abdominal/Gastrointestinal: No Abdominal Pain, No Vomiting Genitourinary Symptoms: No Dysuria All Other Systems: Reviewed and Negative - Past Medical History Pertinent Past Medical History: No Neurological History: Other ENT History: No Pertinent History Cardiac History: High Cholesterol, Hypertension Respiratory History: No Pertinent History Endocrine Medical History: Diabetes Type II Musculoskeletal History: Arthritis, Osteoarthritis GI Medical History: Esophageal Disorder, GERD, Gallbladder Disease History: No Pertinent History Psycho-Social History: Bipolar, Depression Female Reproductive Disorders: Endometriosis Other Medical History: SHE IS TAKING NORCO EVERY SIX HOURS; PERKOCET (HASN'T TAKEN FOR 4 DAYS), AND TAKES TORDOL MAYBE 1X/DAY FOR BREAKTHROUGH PAIN. - Past Surgical History Past Surgical History: Yes Neuro Surgical History: No Pertinent History Cardiac: No Pertinent History Respiratory: No Pertinent History Gastrointestinal: Cholecystectomy Genitourinary: No Pertinent History Musculoskeletal: Orthopedic Surgery Female Surgical History: Hysterectomy Other Surgical History: r foot,carpal tunnel,rt and lt wrist ligament repair - Social History Smoking Status: Current every day smoker How long have you smoked: 40 yrs Exposure to second hand smoke: Yes Drug Use: none Patient Lives Alone: No - Nursing Vital Signs Nursing Vital Signs: Initial Vital Signs Temperature 98.8 F 07/13/20 19:14 Pulse Rate 104 H 07/13/20 19:14 Respiratory Rate 20 07/13/20 19:14 Blood Pressure 119/67 07/13/20 19:14 O2 Sat by Pulse Oximetry 96 07/13/20 19:14 Pain Scale Pain Intensity 6 - Physical Exam General Appearance: alert Eye Exam: PERRL/EOMI Ears, Nose, Throat Exam: TMs normal, pharynx normal Neck Exam: other (mild right lateral neck tenderness) Respiratory Exam: other (bronchial b.s. over all fernandes) Cardiovascular Exam: normal heart sounds Gastrointestinal/Abdomen Exam: soft, normal bowel sounds Back Exam: other (fair rom) Extremity Exam: tenderness (mild tenderness over superior aspect of right shoulder.), No pedal edema Neurologic Exam: alert, cooperative Skin Exam: warm, dry SpO2 Interpretation: normal SpO2: 96 O2 Delivery: Room Air - Course Nursing assessment & vital signs reviewed: Yes EKG Interpreted by Me: RATE (100), NORMAL AXIS, NORMAL INTERVALS - Radiology Exams Chest X-ray Interpretation: Teleradiologist Report (Possible mild peribronchial thickening. Minimal plate like atelectasis in the right base. 9mm nodular density projected over the cardiac silhouette on the lateral view.) - CT Exams Head CT Interpretation: Tele-radiologist Report (No acute intracranial abnormality.) Ordered Tests: Active Orders 24 hr Category Date Time Status Sales Service Promoter STAT Care 07/13/20 20:02 Active EKG-ER Only STAT Care 07/13/20 20:02 Active IV Insertion STAT Care 07/13/20 20:02 Active Pulse Oximetry (ED) STAT Care 07/13/20 20:02 Active CHEST 2 VIEWS (PA AND LAT) Stat Exams 07/13/20 20:02 Taken HEAD WITHOUT CONTRAST [CT] Stat Exams 07/13/20 20:01 Taken BLOOD CULTURE Stat Lab 07/13/20 20:30 Received CBC W DIFF Stat Lab 07/13/20 20:20 Completed CMP Stat Lab 07/13/20 20:20 Completed CULTURE,SPUTUM Stat Lab 07/13/20 20:03 Ordered D-DIMER QUANTITATIVE Stat Lab 07/13/20 20:20 Completed MAGNESIUM Stat Lab 07/13/20 20:20 Completed NT PRO BNP Stat Lab 07/13/20 20:20 Completed TROPONIN Q3H Lab 07/13/20 20:20 Completed TROPONIN Q3H Lab 07/13/20 23:15 Ordered TROPONIN Q3H Lab 07/14/20 02:15 Ordered TROPONIN Q3H Lab 07/14/20 05:15 Ordered TROPONIN Q3H Lab 07/14/20 08:15 Ordered UA W/RFX UR CULTURE Stat Lab 07/13/20 21:45 Completed Respiratory Therapy Assessment DAILY RT 07/13/20 20:38 Active Medication Summary Generic Name Dose Route Start Last Admin Trade Name Freq PRN Reason Stop Dose Admin Sodium Chloride 1,000 mls @ 100 mls/hr 07/13/20 20:15 07/13/20 20:22 Sodium Chloride 0.9% 1000 Ml IV 08/12/20 20:14 100 mls/hr .Q10H ANGELITA Administration Discontinued Medications Generic Name Dose Route Start Last Admin Trade Name Aquiles PRN Reason Stop Dose Admin Hydrocodone Bitart/Acetaminophen 2 tab 07/13/20 20:06 07/13/20 20:27 [place] 5/325 Mg PO 07/13/20 20:07 2 tab STAT ONE Administration Hydrocodone Bitart/Acetaminophen Confirm 07/13/20 20:20 [place] 5/325 Mg Administered 07/13/20 20:21 Dose 2 tab .ROUTE .STK-MED ONE Albuterol Sulfate 2.5 mg 07/13/20 20:02 07/13/20 20:34 Proventil 2.5 Mg/3 Ml Neb IH 07/13/20 20:03 2.5 mg STAT ONE Administration Albuterol Sulfate Confirm 07/13/20 20:32 Proventil 2.5 Mg/3 Ml Neb Administered 07/13/20 20:33 Dose 2.5 mg IH .STK-MED ONE Azithromycin 500 mg in 250 mls @ 250 mls/hr 07/13/20 20:02 07/13/20 21:45 Zithromax 500 Mg/ 250 Ml Nacl Premix IV 07/13/20 21:01 Infused STAT STA Infusion Ceftriaxone Sodium/Dextrose 1 g in 50 mls @ 100 mls/hr 07/13/20 20:02 07/13/20 21:03 Rocephin 1 Gm-D5w 50 Ml Bag IV 07/13/20 20:31 Infused STAT STA Infusion Azithromycin Confirm 07/13/20 20:20 Zithromax 500 Mg/ 250 Ml Nacl Premix Administered 07/13/20 20:21 Dose 500 mg in 250 mls @ ud IV .STK-MED ONE Ceftriaxone Sodium/Dextrose Confirm 07/13/20 20:21 Rocephin 1 Gm-D5w 50 Ml Bag Administered 07/13/20 20:22 Dose 1 g in 50 mls @ ud IV .STK-MED ONE Ketorolac Tromethamine 30 mg 07/13/20 22:22 07/13/20 22:30 Toradol 30 Mg Injection IV 07/13/20 22:23 30 mg STAT ONE Administration Ketorolac Tromethamine Confirm 07/13/20 22:28 Toradol 30 Mg Injection Administered 07/13/20 22:29 Dose 30 mg .ROUTE .STK-MED ONE Lab/Rad Data: Laboratory Result Diagrams 07/13/20 20:20 07/13/20 20:20 Laboratory Results 07/13/20 07/13/20 07/13/20 Range/Units 21:45 20:20 20:20 WBC (4.0-10.5) K/mm3 RBC (4.1-5.4) M/mm3 Hgb (12.0-16.0) gm/dl Hct (35-47) % MCV (78-100) fl MCH (26-32) pg MCHC (32-36) g/dl RDW (11.5-14.0) % Plt Count (150-450) K/mm3 MPV (7.5-11.0) fl Gran % (36.0-66.0) % Eos # (Auto) (0-0.5) Absolute Lymphs (auto) (1.0-4.6) Absolute Monos (auto) (0.0-1.3) Lymphocytes % (24.0-44.0) % Monocytes % (0.0-12.0) % Eosinophils % (0.00-5.0) % Basophils % (0.0-0.4) % Absolute Granulocytes (1.4-6.9) Basophils # (0-0.4) D-Dimer 470 (215-500) ng/mL Sodium (137-145) mmol/L Potassium (3.5-5.1) mmol/L Chloride (98-107) mmol/L Carbon Dioxide (22-30) mmol/L Anion Gap (5-15) MEQ/L BUN (7-17) mg/dL Creatinine (0.52-1.04) mg/dL Estimated GFR ML/MIN Glucose (74-106) mg/dL Calcium (8.4-10.2) mg/dL Magnesium (1.6-2.3) mg/dL Total Bilirubin (0.2-1.3) mg/dL AST (14-36) U/L ALT (0-35) U/L Alkaline Phosphatase (38-126) U/L Troponin I < 0.012 (0.000-0.034) ng/mL NT-Pro-B Natriuret Pep (0-900) pg/mL Serum Total Protein (6.3-8.2) g/dL Albumin (3.5-5.0) g/dL Urine Color YELLOW (YELLOW) Urine Appearance CLEAR (CLEAR) Urine pH 6.0 (5-6) Ur Specific [place] 1.018 (1.005-1.025) Urine Protein NEGATIVE (Negative) Urine Ketones NEGATIVE (NEGATIVE) Urine Blood NEGATIVE (0-5) Stanley/ul Urine Nitrite NEGATIVE (NEGATIVE) Urine Bilirubin NEGATIVE (NEGATIVE) Urine Urobilinogen NEGATIVE (0-1) mg/dL Ur Leukocyte Esterase NEGATIVE (NEGATIVE) Urine WBC (Auto) NONE (0-5) /HPF Urine RBC (Auto) NONE (0-2) /HPF U Epithel Cells (Auto) RARE (FEW) /HPF Urine Bacteria (Auto) NONE (NEGATIVE) /HPF Urine Culture Reflexed NO (NO) Urine Glucose >=500 (NEGATIVE) mg/dL 07/13/20 07/13/20 Range/Units 20:20 20:20 WBC 5.4 (4.0-10.5) K/mm3 RBC 4.32 (4.1-5.4) M/mm3 Hgb 12.6 (12.0-16.0) gm/dl Hct 38.9 (35-47) % MCV 90.0 (78-100) fl MCH 29.2 (26-32) pg MCHC 32.4 (32-36) g/dl RDW 14.8 H (11.5-14.0) % Plt Count 272 (150-450) K/mm3 MPV 9.3 (7.5-11.0) fl Gran % 66.2 H (36.0-66.0) % Eos # (Auto) 0.10 (0-0.5) Absolute Lymphs (auto) 1.11 (1.0-4.6) Absolute Monos (auto) 0.61 (0.0-1.3) Lymphocytes % 20.4 L (24.0-44.0) % Monocytes % 11.2 (0.0-12.0) % Eosinophils % 1.8 (0.00-5.0) % Basophils % 0.4 (0.0-0.4) % Absolute Granulocytes 3.59 (1.4-6.9) Basophils # 0.02 (0-0.4) D-Dimer (215-500) ng/mL Sodium 138 (137-145) mmol/L Potassium 3.8 (3.5-5.1) mmol/L Chloride 110 H (98-107) mmol/L Carbon Dioxide 18 L (22-30) mmol/L Anion Gap 13.9 (5-15) MEQ/L BUN 11 (7-17) mg/dL Creatinine 0.75 (0.52-1.04) mg/dL Estimated GFR > 60.0 ML/MIN Glucose 128 H (74-106) mg/dL Calcium 9.2 (8.4-10.2) mg/dL Magnesium 2.2 (1.6-2.3) mg/dL Total Bilirubin 0.30 (0.2-1.3) mg/dL AST 28 (14-36) U/L ALT 22 (0-35) U/L Alkaline Phosphatase 93 (38-126) U/L Troponin I (0.000-0.034) ng/mL NT-Pro-B Natriuret Pep 12.5 (0-900) pg/mL Serum Total Protein 7.6 (6.3-8.2) g/dL Albumin 4.5 (3.5-5.0) g/dL Urine Color (YELLOW) Urine Appearance (CLEAR) Urine pH (5-6) Ur Specific [place] (1.005-1.025) Urine Protein (Negative) Urine Ketones (NEGATIVE) Urine Blood (0-5) Stanley/ul Urine Nitrite (NEGATIVE) Urine Bilirubin (NEGATIVE) Urine Urobilinogen (0-1) mg/dL Ur Leukocyte Esterase (NEGATIVE) Urine WBC (Auto) (0-5) /HPF Urine RBC (Auto) (0-2) /HPF U Epithel Cells (Auto) (FEW) /HPF Urine Bacteria (Auto) (NEGATIVE) /HPF Urine Culture Reflexed (NO) Urine Glucose (NEGATIVE) mg/dL - Progress Progress: unchanged Progress Note: Pt refused ct-chest, ct-neck and right shoulder x-ray. Pt states she will follow up with her private doctor about CXR findings. Counseled pt/family regarding: lab results, diagnosis, need for follow-up, rad results - Departure Departure Disposition: Home Clinical Impression: Bronchitis, Headache, Chest heaviness, right lateral neck pain, right shoulder tenderness, 9mm nodular density in chest Condition: Stable Critical Care Time: No Referrals: ALIYA MEDINA [Primary Care Provider] - Instructions: Acute Bronchitis, Cough, Adult (DC) Additional Instructions: Follow up with Dr. Medina tomorrow. Forms: Work/School Release Form Prescriptions: Benzonatate [Tessalon Perle] 100 mg PO TID PRN #20 capsule Azithromycin 250 mg [Zithromax 250 MG TABLET] 250 mg PO ZPACK #6 tablet
[2020-07-13] MEDS ORDERED: Zithromax 500 MG/ 250 ML NaCl Premix 500 MG/250 ML IVPB IV STA (20:02)
[2020-07-13] MEDS ORDERED: ROCEPHIN 1 Gm-D5w 50 ml Bag** 1 G/50 ML IVPB IV STA (20:02)
[2020-07-13] MEDS ORDERED: PROVENTIL 2.5 MG/3 ML NEB IH ONE ×2 (20:02→20:32)
[2020-07-13] MEDS ORDERED: NORCO 5/325 MG PO ONE (20:06)
[2020-07-13] MEDS ORDERED: Sodium Chloride 0.9% 1000 ML 1,000 ML IV SCH (20:15)
[2020-07-13] MEDS ORDERED: NORCO 5/325 MG ONE (20:20)
[2020-07-13] MEDS ORDERED: Zithromax 500 MG/ 250 ML NaCl Premix 500 MG/250 ML IVPB IV ONE (20:20)
[2020-07-13] MEDS ORDERED: Sodium Chloride 0.9% 1000 ML 1,000 ML ONE (20:20)
[2020-07-13] MEDS ORDERED: ROCEPHIN 1 Gm-D5w 50 ml Bag** 1 G/50 ML IVPB IV ONE (20:21)
[2020-07-13 20:43] LABS: Absolute Neutrophil Ct (ANC) 3.59 (1.4-6.9); BASOPHIL % 0.4 % (0.0-0.4); Basophil (Absolute #) 0.02 (0-0.4); Eosinophil % 1.8 % (0.00-5.0); Hematocrit 38.9 % (35-47); Hemoglobin 12.6 gm/dl (12.0-16.0); Lymphocyte (Absolute #) 1.11 (1.0-4.6); Lymphocytes % 20.4 % (24.0-44.0); Mean Corpuscular Hemoglobin 29.2 pg (26-32); Mean Corpuscular Hgb Concent. 32.4 g/dl (32-36); Mean Platelet Volume 9.3 fl (7.5-11.0); Monocyte (Absolute #) 0.61 (0.0-1.3); Monocytes % 11.2 % (0.0-12.0); Neutrophil % 66.2 % (36.0-66.0); Platelet Count 272 K/mm3 (150-450); Red Blood Count 4.32 M/mm3 (4.1-5.4); Red Cell Distribution Width 14.8 % (11.5-14.0); White Blood Count 5.4 K/mm3 (4.0-10.5)
[2020-07-13 21:03] LABS: ALBUMIN 4.5 g/dL (3.5-5.0); ALKALINE PHOSPHATASE 93 U/L (38-126); ANION GAP 13.9 MEQ/L (5-15); BLOOD UREA NITROGEN 11 mg/dL (7-17); CHLORIDE 110 mmol/L (98-107); Calcium 9.2 mg/dL (8.4-10.2); Carbon Dioxide 18 mmol/L (22-30); Creatinine 1 0.75 mg/dL (0.52-1.04); EST GLOMERULAR FILTRATION RATE > 60.0 ML/MIN; Glucose 128 mg/dL (74-106); MAGNESIUM 2.2 mg/dL (1.6-2.3); NT PRO BNP 12.5 pg/mL (0-900); Potassium 3.8 mmol/L (3.5-5.1); SGOT/AST 28 U/L (14-36); SGPT/ALT 22 U/L (0-35); SODIUM 138 mmol/L (137-145); Total Protein 7.6 g/dL (6.3-8.2)
[2020-07-13 21:32] VITALS: O2SAT 96
[2020-07-13 21:48] LABS: Appearance CLEAR (CLEAR); Bilirubin NEGATIVE (NEGATIVE); Blood NEGATIVE Ery/ul (0-5); Epithelial Cells RARE /HPF (FEW); Glucose >=500 mg/dL (NEGATIVE); Ketones NEGATIVE (NEGATIVE); Leukocyte Esterase NEGATIVE (NEGATIVE); Nitrite NEGATIVE (NEGATIVE); Protein,Urine Dip NEGATIVE (Negative); Specific Gravity 1.018 (1.005-1.025); Urobilinogen NEGATIVE mg/dL (0-1)
[2020-07-13] MEDS ORDERED: TORAdol 30 mg Injection IV ONE (22:22)
[2020-07-13] MEDS ORDERED: TORAdol 30 mg Injection ONE (22:28)
[2020-07-13 23:30] VITALS: BP 102/72; PULSE 83
--- NOTE | 2020-07-14 08:55 | XRAY ---
Indication: Severe headache. Multiple contiguous axial images obtained through the head without contrast. Comparison: August 24, 2019. Normal appearing brain parenchyma, ventricles, and bony calvarium. Visualized paranasal sinuses and mastoid air cells are clear. Impression: Continued normal CT head without contrast exam. Comment: Preliminary interpretation was made by [facility]. No critical discrepancy.
--- NOTE | 2020-07-14 08:57 | XRAY ---
Indication: Productive cough. Comparison: February 17, 2020. PA/lateral chest demonstrates new 1 cm lingula noncalcified nodularity better evaluated with CT chest. Remaining heart and lungs unremarkable. Bony thorax intact with minimal degenerative changes. Comment: Preliminary interpretation was made by [facility]. No critical discrepancy.
== END 2020-07-13 23:40 | disposition home or self-care (01) ==
LOC: ED 18:46
DX: J40 Bronchitis, not specified as acute or chronic (principal); R51.9 Headache, unspecified; R07.89 Other chest pain; R07.9 Chest pain, unspecified; M25.511 Pain in right shoulder; J98.4 Other disorders of lung
CPT/HCPCS: 36000; 36415; 70450; 71046; 80053; 81001; 83735; 83880; 84484; 85025; 85379; 87040; 93005; 93041; 94640; 94760; 96360; 96365; 96374; 99285; J0456; J0696; J1885; J7609; A9270-GY

== ENCOUNTER 2020-08-13 21:47 | Emergency (ER) | payer BC ==
--- NOTE | 2020-08-13 22:17 | ERPHSYRPT ---
- History of Present Illness Time Seen by Provider: 08/13/20 22:00 Source: patient, family () Exam Limitations: no limitations Physician History: The patient is a 50-year-old female with a past medical significant for chronic headaches,, right hand pain, insomnia who presents with a chief complaint of confusion. Of note, the patient was accompanied by her . She states that she woke up confused. She reportedly supposed to go to work but did not go to work. Her also stated she had trouble lighting a cigarette. When I tried to ask her details pertaining to the HPI she kept repeating "I do not know." She can tell me her date of and is conversing well and can talk to her otherwise. She denies any focal weakness or deficits. She does not know what meds she is taking and her states that "she is on the list of meds." He stated he can go to the house and bring them to the emergency department for me to view. She denies any alcohol use or illicit drug use. She could tell me her date of but when asked. The months of the year she states "I know no." Just before left, she told him exactly where to find her medications in the house. Timing/Duration: today Allergies/Adverse Reactions: cyclobenzaprine [From Flexeril] Allergy (Verified 08/13/20 22:35) morphine Allergy (Verified 08/13/20 22:35) prochlorperazine [From Compazine] Adverse Reaction (Verified 08/13/20 22:35) Home Medications: Doxepin HCl 300 mg PO DAILY 11/14/16 [History] Lisinopril 20 mg [Zestril 20 MG] 20 mg PO DAILY 11/14/16 [History] Venlafaxine HCl [Effexor Xr] 300 mg PO HS 11/14/16 [History] Venlafaxine HCl [Venlafaxine HCl ER] 75 mg PO DAILY 09/18/18 [History] Zolpidem Tartrate 10 mg PO HS PRN PRN 09/18/18 [History] Insulin Degludec [Tresiba] 30 unit SQ DAILY 08/24/19 [History] Empagliflozin [Jardiance] 10 mg PO DAILY 11/14/19 [History] carisoprodoL [Carisoprodol] 1 ea PO DAILY 11/14/19 [History] Dexlansoprazole [Dexilant] 30 mg PO HS 02/17/20 [History] Hx Tetanus, Diphtheria Vaccination/Date Given: Yes Hx Influenza Vaccination/Date Given: Yes Hx Pneumococcal Vaccination/Date Given: No Travel Risk - Vaccine Status Have you recieved a Covid-19 vaccination: Yes 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 Roll 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: 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 - Vaccination Dates Date of 2cond Vaccination (if applicable): 06/10/2020 - Review of Systems Neurological: Headache, Other (COnfusion ) - Past Medical History Pertinent Past Medical History: No Neurological History: Other ENT History: No Pertinent History Cardiac History: High Cholesterol, Hypertension Respiratory History: No Pertinent History Endocrine Medical History: Diabetes Type II Musculoskeletal History: Arthritis, Osteoarthritis GI Medical History: Esophageal Disorder, GERD, Gallbladder Disease History: No Pertinent History Psycho-Social History: Bipolar, Depression Female Reproductive Disorders: Endometriosis Other Medical History: SHE IS TAKING NORCO EVERY SIX HOURS; PERKOCET (HASN'T TAKEN FOR 4 DAYS), AND TAKES TORDOL MAYBE 1X/DAY FOR BREAKTHROUGH PAIN. - Past Surgical History Past Surgical History: Yes Neuro Surgical History: No Pertinent History Cardiac: No Pertinent History Respiratory: No Pertinent History Gastrointestinal: Cholecystectomy Genitourinary: No Pertinent History Musculoskeletal: Orthopedic Surgery Female Surgical History: Hysterectomy Other Surgical History: r foot,carpal tunnel,rt and lt wrist ligament repair - Social History Smoking Status: Current every day smoker How long have you smoked: 40 yrs Exposure to second hand smoke: Yes Drug Use: none Patient Lives Alone: No - Nursing Vital Signs Nursing Vital Signs: Initial Vital Signs Temperature 98.4 F 08/13/20 21:58 Pulse Rate 97 H 08/13/20 21:58 Respiratory Rate 20 08/13/20 21:58 Blood Pressure 168/136 08/13/20 21:58 O2 Sat by Pulse Oximetry 96 08/13/20 21:58 Pain Scale Pain Intensity 5 - Physical Exam General Appearance: anxiety Eye Exam: PERRL/EOMI, eyes nml inspection, EOM palsy/anisocoria, No photophobia Ears, Nose, Throat Exam: No pharyngeal erythema, No tonsillar exudate Neck Exam: normal inspection Respiratory Exam: normal breath sounds, lungs clear, airway intact, No respiratory distress, No diminished breath sounds Cardiovascular Exam: regular rate/rhythm, normal heart sounds, No murmur Gastrointestinal/Abdomen Exam: soft Pelvic Exam: deferred Rectal Exam: deferred Back Exam: normal inspection Extremity Exam: normal inspection Neurologic Exam: alert, cooperative, 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, other (Anxious and tearful), No motor deficits, No sensory deficit, No motor weakness, No facial droop, No slurred speech, No aphasia, No abnormal gait Skin Exam: normal color, warm, No dry, No rash SpO2 Interpretation: normal - Course Nursing assessment & vital signs reviewed: Yes EKG Interpreted by Me: RATE, NORMAL AXIS, NORMAL INTERVALS, NORMAL QRS, Non- specific ST Changes - CT Exams Head CT Interpretation: Negative Other CT Interpretation: Negative (CTA head and neck wnl) Ordered Tests: Active Orders 24 hr Category Date Time Status EKG-ER Only STAT Care 08/13/20 22:14 Completed IV Insertion STAT Care 08/13/20 22:14 Completed CHEST 2 VIEWS (PA AND LAT) Stat Exams 08/13/20 22:[address] ANGIOGRAPHY NECK [CT] Stat Exams 08/13/20 22:22 Taken CTA HEAD W AND/OR WO CONTRAST [CT] Stat Exams 08/13/20 22:22 Taken HEAD WITHOUT CONTRAST [CT] Stat Exams 08/13/20 22:17 Stop Req BMP Stat Lab 08/13/20 22:28 Completed CBC W DIFF Stat Lab 08/13/20 22:28 Completed Hepatic Function Panel Stat Lab 08/13/20 22:28 Completed Medication Summary Discontinued Medications Generic Name Dose Route Start Last Admin Trade Name Aquiles PRN Reason Stop Dose Admin Acetaminophen 975 mg 08/13/20 23:13 08/13/20 23:31 Tylenol 325 Mg PO 08/13/20 23:14 975 mg STAT ONE Administration Acetaminophen Confirm 08/13/20 23:30 Tylenol 325 Mg Administered 08/13/20 23:31 Dose 975 mg .ROUTE .STK-MED ONE Diphenhydramine HCl 25 mg 08/14/20 00:30 08/14/20 00:35 Benadryl 50 Mg/Ml IV 08/14/20 00:31 25 mg STAT ONE Administration Diphenhydramine HCl Confirm 08/14/20 00:33 Benadryl 50 Mg/Ml Administered 08/14/20 00:34 Dose 50 mg .ROUTE .STK-MED ONE Haloperidol Lactate 2.5 mg 08/14/20 00:29 08/14/20 00:38 Haldol 5 Mg IV 08/14/20 00:30 2.5 mg STAT ONE Administration Haloperidol Lactate Confirm 08/14/20 00:33 Haldol 5 Mg Administered 08/14/20 00:34 Dose 5 mg .ROUTE .STK-MED ONE Lab/Rad Data: Laboratory Result Diagrams 08/13/20 22:28 08/13/20 22:28 Laboratory Results 08/13/20 08/13/20 08/13/20 Range/Units 22:28 22:28 01:08 WBC 10.7 H (4.0-10.5) K/mm3 RBC 4.93 (4.1-5.4) M/mm3 Hgb 14.4 (12.0-16.0) gm/dl Hct 44.8 (35-47) % MCV 90.9 (78-100) fl MCH 29.2 (26-32) pg MCHC 32.1 (32-36) g/dl RDW 14.4 H (11.5-14.0) % Plt Count 342 (150-450) K/mm3 MPV 9.0 (7.5-11.0) fl Gran % 64.7 (36.0-66.0) % Eos # (Auto) 0.17 (0-0.5) Absolute Lymphs (auto) 2.99 (1.0-4.6) Absolute Monos (auto) 0.59 (0.0-1.3) Lymphocytes % 27.9 (24.0-44.0) % Monocytes % 5.5 (0.0-12.0) % Eosinophils % 1.6 (0.00-5.0) % Basophils % 0.3 (0.0-0.4) % Absolute Granulocytes 6.93 H (1.4-6.9) Basophils # 0.03 (0-0.4) Sodium 141 (137-145) mmol/L Potassium 3.9 (3.5-5.1) mmol/L Chloride 106 (98-107) mmol/L Carbon Dioxide 23 (22-30) mmol/L Anion Gap 16.0 H (5-15) MEQ/L BUN 10 (7-17) mg/dL Creatinine 0.75 (0.52-1.04) mg/dL Estimated GFR > 60.0 ML/MIN Glucose 169 H (74-106) mg/dL Calcium 9.8 (8.4-10.2) mg/dL Total Bilirubin 0.20 (0.2-1.3) mg/dL Direct Bilirubin 0 (0.0-0.4) mg/dL AST 20 (14-36) U/L ALT 19 (0-35) U/L Alkaline Phosphatase 95 (38-126) U/L Serum Total Protein 7.9 (6.3-8.2) g/dL Albumin 4.6 (3.5-5.0) g/dL Urine Color (YELLOW) Urine Appearance (CLEAR) Urine pH (5-6) Ur Specific [place] (1.005-1.025) Urine Protein (Negative) Urine Ketones (NEGATIVE) Urine Blood (0-5) Stanley/ul Urine Nitrite (NEGATIVE) Urine Bilirubin (NEGATIVE) Urine Urobilinogen (0-1) mg/dL Ur Leukocyte Esterase (NEGATIVE) Urine WBC (Auto) (0-5) /HPF Urine RBC (Auto) (0-2) /HPF U Epithel Cells (Auto) (FEW) /HPF Urine Bacteria (Auto) (NEGATIVE) /HPF Urine Culture Reflexed (NO) Urine Glucose (NEGATIVE) mg/dL Urine Opiates Level POSITIVE (NEGATIVE) Ur Methadone NEGATIVE (NEGATIVE) Urine Barbiturates NEGATIVE (NEGATIVE) Ur Phencyclidine (PCP) NEGATIVE (NEGATIVE) Urine Amphetamine NEGATIVE (NEGATIVE) U Benzodiazepine Level NEGATIVE (NEGATIVE) Urine Cocaine NEGATIVE (NEGATIVE) Urine Marijuana (THC) NEGATIVE (NEGATIVE) 08/13/20 Range/Units 01:08 WBC (4.0-10.5) K/mm3 RBC (4.1-5.4) M/mm3 Hgb (12.0-16.0) gm/dl Hct (35-47) % MCV (78-100) fl MCH (26-32) pg MCHC (32-36) g/dl RDW (11.5-14.0) % Plt Count (150-450) K/mm3 MPV (7.5-11.0) fl Gran % (36.0-66.0) % Eos # (Auto) (0-0.5) Absolute Lymphs (auto) (1.0-4.6) Absolute Monos (auto) (0.0-1.3) Lymphocytes % (24.0-44.0) % Monocytes % (0.0-12.0) % Eosinophils % (0.00-5.0) % Basophils % (0.0-0.4) % Absolute Granulocytes (1.4-6.9) Basophils # (0-0.4) Sodium (137-145) mmol/L Potassium (3.5-5.1) mmol/L Chloride (98-107) mmol/L Carbon Dioxide (22-30) mmol/L Anion Gap (5-15) MEQ/L BUN (7-17) mg/dL Creatinine (0.52-1.04) mg/dL Estimated GFR ML/MIN Glucose (74-106) mg/dL Calcium (8.4-10.2) mg/dL Total Bilirubin (0.2-1.3) mg/dL Direct Bilirubin (0.0-0.4) mg/dL AST (14-36) U/L ALT (0-35) U/L Alkaline Phosphatase (38-126) U/L Serum Total Protein (6.3-8.2) g/dL Albumin (3.5-5.0) g/dL Urine Color YELLOW (YELLOW) Urine Appearance CLEAR (CLEAR) Urine pH 6.0 (5-6) Ur Specific [place] 1.027 (1.005-1.025) Urine Protein NEGATIVE (Negative) Urine Ketones NEGATIVE (NEGATIVE) Urine Blood NEGATIVE (0-5) Stanley/ul Urine Nitrite NEGATIVE (NEGATIVE) Urine Bilirubin NEGATIVE (NEGATIVE) Urine Urobilinogen NEGATIVE (0-1) mg/dL Ur Leukocyte Esterase TRACE (NEGATIVE) Urine WBC (Auto) 0-2 (0-5) /HPF Urine RBC (Auto) NONE (0-2) /HPF U Epithel Cells (Auto) RARE (FEW) /HPF Urine Bacteria (Auto) NONE SEEN (NEGATIVE) /HPF Urine Culture Reflexed ORDERED SEPARATELY (NO) Urine Glucose >=500 (NEGATIVE) mg/dL Urine Opiates Level (NEGATIVE) Ur Methadone (NEGATIVE) Urine Barbiturates (NEGATIVE) Ur Phencyclidine (PCP) (NEGATIVE) Urine Amphetamine (NEGATIVE) U Benzodiazepine Level (NEGATIVE) Urine Cocaine (NEGATIVE) Urine Marijuana (THC) (NEGATIVE) - Progress Progress: unchanged, improved Progress Note: 08/13/20 23:13 Again is requesting pain medications. Given that she is reportedly "confused" I will avoid giving any opiates or sedating medicines to include Benadryl, opiates, or any atypical antipsychotics such as Haldol which can be used to treat headaches. Tylenol has been ordered. 08/13/20 23:47 Inspect was reviewed and her overdose risk score was calculated to be 390. It appears she had a 7-day prescription for Emmons filled on August 07, 2020. It also appears she had Ambien 10 mg prescribed and filled on July 19, 2020 for 30-day supply. It appears she gets both Emmons, diazepam, Ambien and carisoprodol regularly. The patient presents with confusion but otherwise is well-appearing and with the exception of her suppose it memory problems she has no additional neuro focal deficits. Head CT without contrast was negative and she will go have a CTA head neck to eval for any kind of carotid stenosis, aneurysm or any evidence of stroke. I have a low suspicion for CVA at this time although a CVA to the insula can do this however. This could be psych related as well and/or polypharmacy can also be the etiology. She has no fever and otherwise is well appearing and my suspicion for meningitis/encephalitis is low and I'll defer LP. It appears the patient was seen in his emergency department in June of this year for headache which appeared to be chronic and had a head CT at that time that was negative. 08/13/20 23:51 08/14/20 00:11 The patient's medications were brought to the emergency department and I reviewed them as a where apparently left on the counter in her room. Her was nowhere to be found. It appears she is also taking baclofen. I did not see a medication bottle label Ambien nor Emmons despite this has been clearl y filled this month. Per her inspect report, it appears she takes Emmons and she should be out by today. Her headaches could certainly be secondary to a post analgesic headache 08/14/20 00:30 Check was threatening to leave the emergency department if she did not get any "for her headache. I went and spoke to the patient and informed her that I typically do not administer narcotics for headaches and I was highly suspect that her headache symptoms were likely secondary to post analgesic syndrome given that she is due to run out of her Emmons today as prescribed for her inspect report. I gave her the option between Toradol, Reglan or Haldol for treatment of her headache and she chose to receive Haldol because she has had this in the past. 2-1/2 mg of Haldol and 25 mg of Benadryl IV given ordered. Neurocranial imaging is within normal limits I believe the patient can be discharged accordingly to follow-up with her primary care provider. She does not seem to be confused right now and is very argumentative. Can provide her transportation home and that he has been "waiting all night." 08/14/20 00:51 CTA head neck came back within normal limits. The patient reported is unable to provide us with a UA sample. She received her Haldol and Benadryl and according to the nurse experienced instantaneous relief. 08/14/20 01:02 I personally reevaluated the patient and she was found lying left lateral recumbent and no obvious distress. She stated she is feeling better after receiving Haldol and Benadryl. I informed her of her work-up findings and need to follow-up with her primary care provider which she was able to tell me the name of pain that her primary care provider was good about getting her into be seen for follow-up. Her memory seems to be much improved on my exam. If this is within normal limits she will be discharged home to follow-up with her PCP. Counseled pt/family regarding: lab results, diagnosis, need for follow-up, rad results - Departure Departure Disposition: Home Clinical Impression: Headache, Confusion, Hypertension Condition: Stable Critical Care Time: No Referrals: ALIYA ROMERO [Primary Care Provider] - Instructions: Headache, Adult Additional Instructions: Please take Tylenol and/or ibuprofen as needed for any ongoing headache symptoms. You can purchase these medications [id number]. Please take these medications as instructed on the medication bottles. Please do not take extra Tylenol while taking Emmons also known as hydrocodone- acetaminophen. Seen on acetaminophen. Please contact your primary care provider soon as possible to arrange outpatient follow-up for further evaluation.
[2020-08-13 22:29] LABS: Absolute Neutrophil Ct (ANC) 6.93 (1.4-6.9); BASOPHIL % 0.3 % (0.0-0.4); Basophil (Absolute #) 0.03 (0-0.4); Eosinophil % 1.6 % (0.00-5.0); Eosinophil (Absolute #) 0.17 (0-0.5); Hematocrit 44.8 % (35-47); Hemoglobin 14.4 gm/dl (12.0-16.0); Lymphocyte (Absolute #) 2.99 (1.0-4.6); Lymphocytes % 27.9 % (24.0-44.0); Mean Cell Volume 90.9 fl (78-100); Mean Corpuscular Hemoglobin 29.2 pg (26-32); Mean Corpuscular Hgb Concent. 32.1 g/dl (32-36); Monocyte (Absolute #) 0.59 (0.0-1.3); Monocytes % 5.5 % (0.0-12.0); Neutrophil % 64.7 % (36.0-66.0); Platelet Count 342 K/mm3 (150-450); Red Blood Count 4.93 M/mm3 (4.1-5.4); Red Cell Distribution Width 14.4 % (11.5-14.0); White Blood Count 10.7 K/mm3 (4.0-10.5)
[2020-08-13 22:44] LABS: ALBUMIN 4.6 g/dL (3.5-5.0); ALKALINE PHOSPHATASE 95 U/L (38-126); BLOOD UREA NITROGEN 10 mg/dL (7-17); CHLORIDE 106 mmol/L (98-107); Calcium 9.8 mg/dL (8.4-10.2); Carbon Dioxide 23 mmol/L (22-30); Creatinine 1 0.75 mg/dL (0.52-1.04); EST GLOMERULAR FILTRATION RATE > 60.0 ML/MIN; Glucose 169 mg/dL (74-106); Potassium 3.9 mmol/L (3.5-5.1); SGOT/AST 20 U/L (14-36); SGPT/ALT 19 U/L (0-35); SODIUM 141 mmol/L (137-145); Total Protein 7.9 g/dL (6.3-8.2)
[2020-08-13 22:49] LABS: Direct Bilirubin 0 mg/dL (0.0-0.4)
[2020-08-13] MEDS ORDERED: TYLENOL 325 MG PO ONE (23:13)
[2020-08-13] MEDS ORDERED: TYLENOL 325 MG ONE (23:30)
[2020-08-14] MEDS ORDERED: Haldol 5 MG IV ONE (00:29)
[2020-08-14] MEDS ORDERED: BENADRYL 50 MG/ML IV ONE (00:30)
[2020-08-14] MEDS ORDERED: Haldol 5 MG ONE (00:33)
[2020-08-14] MEDS ORDERED: BENADRYL 50 MG/ML ONE (00:33)
[2020-08-14 01:11] VITALS: BP 163/80; PULSE 67; O2SAT 96
[2020-08-14 01:14] LABS: Appearance CLEAR (CLEAR); Bilirubin NEGATIVE (NEGATIVE); Blood NEGATIVE Ery/ul (0-5); Epithelial Cells RARE /HPF (FEW); Glucose >=500 mg/dL (NEGATIVE); Ketones NEGATIVE (NEGATIVE); Leukocyte Esterase TRACE (NEGATIVE); Nitrite NEGATIVE (NEGATIVE); Protein,Urine Dip NEGATIVE (Negative); Specific Gravity 1.027 (1.005-1.025); Urobilinogen NEGATIVE mg/dL (0-1); WBC 0-2 /HPF (0-5)
[2020-08-14 01:15] LABS: Bacteria NONE SEEN /HPF (NEGATIVE)
[2020-08-14 01:28] LABS: Amphetamine,Urine NEGATIVE (NEGATIVE); Barbiturate,Urine NEGATIVE (NEGATIVE); Benzodiazepine,Urine NEGATIVE (NEGATIVE); Cocaine,Urine NEGATIVE (NEGATIVE); Methadone,Urine NEGATIVE (NEGATIVE); Opiate,Urine POSITIVE (NEGATIVE); PCP,Urine NEGATIVE (NEGATIVE); THC,Urine NEGATIVE (NEGATIVE)
--- NOTE | 2020-08-14 09:03 | XRAY ---
Indication: Confusion. Comparison: July 13, 2020. AP/lateral chest inflated and clear. Heart not enlarged. Bony thorax intact. No new/acute findings.
--- NOTE | 2020-08-14 09:07 | XRAY ---
Indication: Confusion, frontal headache, and high blood pressure. Conventional contrast enhanced CTA neck performed using 80 cc Isovue 370 contrast. Two-dimensional sagittal and coronal reformatted images obtained. Additional 3-dimensional reformatted images obtained using separate workstation. Comparison: None Aortic arch is normal in course and caliber with normal patent branching right brachiocephalic, left common carotid, and left subclavian arteries. Examination of the right carotid circulation demonstrates widely patent common carotid artery and carotid bulb. Minimal eccentric calcified plaquing seen in the proximal internal carotid artery. Remaining internal and external carotid arteries are normal in CTA appearance. Examination of the left carotid circulation demonstrates widely patent common carotid artery. Very minimal eccentric calcified plaquing at the level of bulb. Remaining internal and external carotid arteries are normal in CT appearance. Vertebral arteries are bilaterally symmetric with the left slightly larger in caliber. No critical stenosis, obstruction, or AV malformation. Visualized noncontrasted soft tissues are negative for pathologic cervical/supraclavicular lymphadenopathy. Thyroid gland enhances homogeneously. Lung apices are clear. Osseous structures intact. CTA head reported separately. Impression: 1. Minimal calcified plaquing proximal right internal carotid artery and left carotid bulb. 2. Remaining CTA neck is negative. Comment: Preliminary interpretation was made by [facility]. No critical discrepancy.
--- NOTE | 2020-08-14 11:04 | XRAY ---
Indication: Confusion, headache, and high blood pressure. Stroke. History migraines. Multiple contiguous axial images obtained through the head without contrast. Comparison: July 13, 2020. Normal appearing brain parenchyma, ventricles, and bony calvarium. Visualized paranasal sinuses and mastoid air cells are clear. Impression: Continued normal CT head without contrast exam. Comment: Preliminary interpretation was made by [facility]. No critical discrepancy.
--- NOTE | 2020-08-14 11:08 | XRAY ---
Indication: Confusion, headache, and high blood pressure. Stroke. History migraines. Conventional contrast enhanced CTA head performed using 80 cc Isovue 370 contrast. Two-dimensional sagittal and coronal reformatted images obtained. Additional 3-dimensional reformatted images obtained using a separate workstation.. Comparison: None. Distal internal carotid arteries are bilaterally symmetric without critical stenosis, obstruction, or AV malformation. Normal carotid terminus with normal branching A1 and M1 segments bilaterally. More distal anterior cerebral, middle cerebral, anterior communicating, and posterior communicating arteries are normal in CTA appearance. Basilar artery is normal in course and caliber. Normal branching posterior cerebral and superior cerebellar arteries bilaterally. Venous drainage/sinuses are unremarkable. Remaining whole brain is negative for abnormal enhancing intra or extra-axial mass. Impression: Normal CTA head with contrast exam. Comment: Preliminary interpretation was made by [facility]. No critical discrepancy.
== END 2020-08-14 01:35 | disposition home or self-care (01) ==
LOC: ED 21:47
DX: R41.0 Disorientation, unspecified (principal); R51.9 Headache, unspecified; I10 Essential (primary) hypertension; E78.00 Pure hypercholesterolemia, unspecified; E11.9 Type 2 diabetes mellitus without complications; Z79.899 Other long term (current) drug therapy
CPT/HCPCS: 36000; 36415; 70450; 70496; 70498; 71046; 80048; 80076; 80307; 81001; 85025; 87086; 93005; 96374; 99284; J1200; J1630; A9270-GY

== ENCOUNTER 2020-11-30 10:31 | Day surgery (SDC) | payer BC ==
--- NOTE | 2020-11-30 08:27 | HP ---
DATE OF SURGERY: 11/30/2020 HISTORY OF PRESENT ILLNESS: The patient is a 50 year-old had previous excision a year or so ago, whether she had a lipoma or not is unclear. Now she has a new area that is increasing in size. PAST MEDICAL HISTORY: Hypertension. Diabetes. Gastroesophageal reflux disease. Bipolar depression. PAST SURGICAL HISTORY: Cholecystectomy. Hysterectomy. Right and left thumb revision. Right foot repair. MEDICATIONS: Effexor, doxepin, lisinopril, Seroquel, Tresiba. ALLERGIES: COMPAZINE. MORPHINE. CYCLOBENZAPRINE. FAMILY HISTORY: Negative in regards to this problem. SOCIAL HISTORY: One pack per day smoker, denies alcohol abuse. REVIEW OF SYSTEMS: Fourteen systems reviewed. No chest pain or palpitations. Other systems negative or noncontributory as above and per preadmission questionnaire. PHYSICAL EXAMINATION: GENERAL: No acute distress. HEENT: Sclerae nonicteric. NECK: No JVD. On the posterior neck subcutaneous mass or lipoma enlarging in size. CHEST: Clear to auscultation. CVS: Regular rate and rhythm. ABDOMEN: Soft. EXTREMITIES: No cyanosis. NEURO: Alert, oriented, moving extremities grossly symmetrically. PSYCH: Appropriate mood and affect. IMPRESSION: Enlarging subcutaneous mass posterior neck. The patient is in need of excisional biopsy. Risks and benefits explained in detail including but not limited to bleeding or infection, risk of wound dehiscence, hematoma or seroma formation possibly requiring packing, general risk of anesthesia, deep vein thrombosis, pulmonary embolism, pneumonia, aches and pains but not limited to. Possibility of what we excise once she heals the wound will not recur but she could get similar subcutaneous mass or lipoma or density adjacent to elsewhere on her body. She understands and agrees to the planned procedure, will proceed with excisional biopsy posterior neck subcutaneous mass or lipoma as an outpatient.
[~2020-11-30 10:31] MED LIST changes: -DILAUDID 2 MG INJECTION IM PRN; -Hydromorphone 1 mg/ml Ampule ONE; +Lactated Ringers 1,000 ML IV ONE; +Sensorcaine 0.25% 10 ML ONE; -Zofran 4 MG/2 ML VIAL IM ONE; -Zofran 4 MG/2 ML VIAL ONE
[2020-11-30] MEDS ORDERED: CEFAZOLIN 2 GM-D5W BAG** 2 GM/50 ML ML IV SCH (11:00)
[2020-11-30] MEDS ORDERED: Lactated Ringers 1,000 ML IV SCH ×2 (11:00)
[2020-11-30] MEDS ORDERED: Zemuron 100 MG/10 ML ONE (12:49)
[2020-11-30] MEDS ORDERED: Decadron 4 MG INJ ONE (12:49)
[2020-11-30] MEDS ORDERED: Zofran 4 MG/2 ML VIAL ONE (12:49)
[2020-11-30] MEDS ORDERED: SUBLIMAZE 100 MCG/2 ML ONE ×3 (12:49→13:48)
[2020-11-30] MEDS ORDERED: DIPRIVAN 200 MG/20 ML IV ONE ×2 (12:49→14:16)
[2020-11-30] MEDS ORDERED: BRIDION 200MG/2ML IV ONE (13:17)
[2020-11-30] MEDS ORDERED: TORAdol 30 mg Injection ONE ×2 (13:17→14:48)
[2020-11-30] MEDS ORDERED: Hydromorphone 1 mg/ml Injection ONE ×3 (14:29→15:20)
[2020-11-30 16:24] VITALS: BP 129/86; PULSE 107; O2SAT 92
--- NOTE | 2020-12-01 08:05 | OP ---
SURGERY DATE/TIME: 11/30/2020 1248 PREOPERATIVE DIAGNOSIS: Enlarging symptomatic posterior neck subcutaneous mass. POSTOPERATIVE DIAGNOSIS: Enlarging symptomatic posterior neck subcutaneous mass (lipomatous density). PROCEDURE: Excisional biopsy of posterior neck lipomatous density (approximately 10.5 cm). SURGEON: Daniel Amaya M.D. BATCH ANALYST: Alexander Rondon M.D. ANESTHESIA: General. ESTIMATED BLOOD LOSS: Minimal. INDICATIONS: As noted above. Risks and benefits explained in detail including risk of nonhealing of the wound, aches and pains, recurrence of other subcutaneous masses or nodules but not limited to, consent was obtained. The site confirmed with the patient in the preoperative holding area. DESCRIPTION OF PROCEDURE AND FINDINGS: She is taken to the operating room. General anesthesia introduced. Placed in prone position. Appropriate padding and positioning per anesthesia and OR staff. After official time out and no disagreement with planned procedure, marking out around including some redundant skin overlying the area. Dissection is carried down through the subcutaneous tissue down to lipomatous density that is much denser than the surrounding tissue this is slowly and carefully dissected free off of the underlying fascia and passed off. It measured about 2.5 cm in size. There were a couple little small muscle perforators controlled with 3-0 Vicryl suture ligature with good hemostasis noted. The wound is irrigated out. The space is then brought back together bringing the deeper subcu down to the level of the fascia closing and reducing the space as much as possible to decrease the risk of seroma formation this is done with at least two layers of 3-0 Vicryl in deep and superficial subcu. The skin closed with 4-0 Vicryl interrupted fashion, interrupted 3-0 Prolene used to reinforce the area given location, some Dermabond and sterile dressing applied. The patient tolerated the procedure well. There were no immediate complications. Findings discussed with the family out in the waiting area.
== END 2020-11-30 16:32 | disposition home or self-care (01) ==
LOC: SDC 10:31
PROVIDERS: ATTEND Surgery
DX: D17.0 Benign lipomatous neoplasm of skin and subcutaneous tissue of head, face and neck (principal); E11.9 Type 2 diabetes mellitus without complications; I10 Essential (primary) hypertension; Z79.899 Other long term (current) drug therapy
CPT/HCPCS: 82947; 88304; J0690; J1100; J1170; J1885; J2405; J2704; J3010

== ENCOUNTER 2022-04-25 21:07 | Emergency (ER) | payer BC ==
--- NOTE | 2022-04-25 22:22 | ERPHSYRPT ---
- History of Present Illness Time Seen by Provider: 04/25/22 21:55 Source: patient Exam Limitations: no limitations Patient Subjective Stated Complaint: pt states "I have a knot 'down there' on the outside that has been going on for about a week. It is super uncomfortable to sit down. I has gotten bigger." Triage Nursing Assessment: pt ambulatory to bed by self, pt alert and oriented x3, pt c/o of a "knot" in genital area that started a week ago, pt denies any drainage from area, pt denies fever at home, pt afebrile during triage, pt took aleve around 1600 today Physician History: Patient presents with a nodular-like area on the upper labia on the right side that is very tender and feels like an abscess ready to drain. This lesion has been present for a week she says it is getting bigger and it is causing pelvic pain. Timing/Duration: week(s) (1) Activites at Onset: none Quality: aching, throbbing Onset Location: vulvar pain Pain Radiation: vaginal Severity of Pain-Max: moderate Severity of Pain-Current: mild Prior abdominal problems: none Sexual intercourse history: non-contributory Allergies/Adverse Reactions: cyclobenzaprine [From Flexeril] Allergy (Verified 04/25/22 21:45) morphine Adverse Reaction (Verified 04/25/22 21:45) Itching prochlorperazine [From Compazine] Adverse Reaction (Verified 04/25/22 21:45) Difficulty Breathing Home Medications: Doxepin HCl 300 mg PO DAILY 11/14/16 [History] Lisinopril 20 mg [Zestril 20 MG] 20 mg PO DAILY 11/14/16 [History] Venlafaxine HCl [Effexor Xr] 300 mg PO HS 11/14/16 [History] Zolpidem Tartrate 10 mg PO HS PRN PRN 09/18/18 [History] Insulin Degludec [Tresiba] 30 unit SQ DAILY 08/24/19 [History] Empagliflozin [Jardiance] 10 mg PO DAILY 11/14/19 [History] Quetiapine Fumarate [Seroquel] 300 mg PO QHS 11/19/20 [History] Hx Tetanus, Diphtheria Vaccination/Date Given: Yes Hx Influenza Vaccination/Date Given: Yes Hx Pneumococcal Vaccination/Date Given: No Travel Risk - International Travel Have you traveled outside of the country in past 3 weeks: No - Coronavirus Screening Are you exhibiting any of the following symptoms?: No Close contact with a COVID-19 positive Pt in past 14-21 Days: No - Vaccine Status Have you recieved a Covid-19 vaccination: Yes 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 - Vaccination Dates Date of 2cond Vaccination (if applicable): 06/10/2020 - Review of Systems Constitutional: No Fever, No Chills Eyes: No Symptoms Ears, Nose, & Throat: No Symptoms Respiratory: No Cough, No Dyspnea Cardiac: No Chest Pain, No Edema, No Syncope Abdominal/Gastrointestinal: No Abdominal Pain, No Nausea, No Vomiting, No Diarrhea Genitourinary Symptoms: Other (Vaginal pain), No Dysuria Musculoskeletal: No Back Pain, No Neck Pain Skin: No Rash Neurological: No Dizziness, No Focal Weakness, No Sensory Changes Psychological: No Symptoms Endocrine: No Symptoms All Other Systems: Reviewed and Negative - Past Medical History Pertinent Past Medical History: No Neurological History: Other ENT History: No Pertinent History Cardiac History: High Cholesterol, Hypertension Respiratory History: No Pertinent History Endocrine Medical History: Diabetes Type II Musculoskeletal History: Osteoarthritis GI Medical History: Esophageal Disorder, GERD, Gallbladder Disease History: No Pertinent History Psycho-Social History: Bipolar, Depression Female Reproductive Disorders: Endometriosis Other Medical History: headaches, multiple R toe fractures, R carpal tunnel release, B hand reconstruction - Past Surgical History Past Surgical History: Yes Neuro Surgical History: No Pertinent History Cardiac: No Pertinent History Respiratory: No Pertinent History Gastrointestinal: Cholecystectomy Genitourinary: No Pertinent History Musculoskeletal: Orthopedic Surgery Female Surgical History: Hysterectomy Other Surgical History: r foot,carpal tunnel,rt and lt wrist ligament repair, R shoulder - Social History Smoking Status: Current every day smoker How long have you smoked: 40 yrs Exposure to second hand smoke: Yes Drug Use: none Patient Lives Alone: No - Nursing Vital Signs Nursing Vital Signs: Initial Vital Signs Temperature 98.7 F 04/25/22 21:45 Pulse Rate 109 H 04/25/22 21:45 Respiratory Rate 18 04/25/22 21:45 Blood Pressure 137/105 04/25/22 21:45 O2 Sat by Pulse Oximetry 98 04/25/22 21:45 Pain Scale Pain Intensity 9 - Physical Exam General Appearance: mild distress, alert Eye Exam: PERRL/EOMI, eyes nml inspection Ears, Nose, Throat Exam: normal ENT inspection, TMs normal, pharynx normal, moist mucous membranes Neck Exam: normal inspection, non-tender, supple, full range of motion Respiratory Exam: normal breath sounds, lungs clear, No respiratory distress Cardiovascular Exam: regular rate/rhythm, normal heart sounds, normal peripheral pulses Gastrointestinal/Abdomen Exam: soft, No tenderness, No mass Pelvic Exam: other (On the right upper labial area there is an area of a nodular area feels like an abscess we will I&D.) Back Exam: normal inspection, normal range of motion, No CVA tenderness, No vertebral tenderness Extremity Exam: normal inspection, normal range of motion, pelvis stable Neurologic Exam: alert, 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, cooperative, 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 tested, normal mood/affect, sensation nml, No motor deficits Skin Exam: normal color, warm, dry Lymphatic Exam: No adenopathy SpO2: 98 Procedures - Incision and Drainage Time of Procedure: 23:05 Timeout: Performed Site: Right labial area Anesthesia: 1% Lidocaine cc's of anesthesia: 2 Blade Size: 11 I & D Procedure: betadine prep Results: small amount pus Progress: Culture was taken - Course Nursing assessment & vital signs reviewed: Yes - Progress Progress: improved Air Movement: good Blood Culture(s) Obtained: No Antibiotics given: Yes Medical Desision Making - Risk of complications Low Risk: Low risk of morbidity from additional dx testing or treatment - Departure Departure Disposition: Home Clinical Impression: Labial abscess Condition: Stable Critical Care Time: No Referrals: ALIYA ROMERO [Primary Care Provider] - Follow up/PCP as directed Instructions: Skin Abscess, Boil, Adult ED, Boil (DC) Prescriptions: Hydrocodone/Acetaminophen [Hydrocodone-Acetamin 5-325 mg] 1 tab PO Q6HPRN PRN 3 Days #12 tablet MDD 4 PRN Reason: Pain Amox Tr/Potass Clav. 875 mg [Augmentin 875-125 Tablet] 875 mg PO BID #20 tablet clindamycin HCL [Clindamycin HCl] 300 mg PO TID 10 Days #30 cap
[2022-04-25 23:04] VITALS: BP 115/72; PULSE 94
[2022-04-25 23:07] VITALS: O2SAT 98
[2022-04-25] MEDS ORDERED: Augmentin 875-125 Tablet PO ONE (23:13)
[2022-04-25] MEDS ORDERED: CLEOCIN 150 MG CAPSULE PO ONE (23:14)
[2022-04-25] MEDS ORDERED: Hydromorphone 1 mg/ml Injection IM ONE (23:15)
[2022-04-25] MEDS ORDERED: CLEOCIN 150 MG CAPSULE ONE (23:19)
[2022-04-25] MEDS ORDERED: Augmentin 875-125 Tablet ONE (23:20)
[2022-04-25] MEDS ORDERED: Hydromorphone 1 mg/ml Injection ONE (23:20)
== END 2022-04-25 23:36 | disposition home or self-care (01) ==
LOC: ED 21:07
DX: N76.4 Abscess of vulva (principal); R10.2 Pelvic and perineal pain; E78.5 Hyperlipidemia, unspecified; I10 Essential (primary) hypertension; E11.9 Type 2 diabetes mellitus without complications; Z79.891 Long term (current) use of opiate analgesic; Z79.84 Long term (current) use of oral hypoglycemic drugs; Z79.4 Long term (current) use of insulin; Z79.899 Other long term (current) drug therapy; Z72.0 Tobacco use
CPT/HCPCS: 56405; 96372; 99283; J1170; A9270-GY

== ENCOUNTER 2022-06-19 05:23 | Emergency (ER) | payer BC ==
[2022-06-19] MEDS ORDERED: TORAdol 30 mg Injection IM ONE (05:42)
[2022-06-19] MEDS ORDERED: TORAdol 30 mg Injection ONE (05:45)
--- NOTE | 2022-06-19 06:17 | ERPHSYRPT ---
- History of Present Illness Time Seen by Provider: 06/19/22 06:11 Source: patient Exam Limitations: no limitations Patient Subjective Stated Complaint: pt states I had surgery in january and was taking care he fell and pulled on my shoulder and reinjured it Triage Nursing Assessment: pt ambulated into the er; pt is axo x4; c/o rt shoulder injury; limited ROM to rt shoulder; skin PDW; no respiratory distress present; tachycardic; hypertensive Physician History: 52 years old female with history of multiple right shoulder surgeries in the past presented in the ER after she was helping someone at work who grabbed her right arm and pulled to stand up. Patient reports moderate to severe sharp pain with minimal movements at the right shoulder without numbness tingling or weakness of hand/forearm. Occurred: hours ago (2) Quality: sharpness Severity of Pain-Max: severe Severity of Pain-Current: severe Extremities Pain Location: shoulder: right Modifying Factors: Improves With: immobilization. Worsens With: movement Associated Symptoms: none Allergies/Adverse Reactions: adhesive tape Allergy (Verified 06/19/22 05:29) Blisters cyclobenzaprine [From Flexeril] Allergy (Verified 06/19/22 05:29) morphine Adverse Reaction (Verified 06/19/22 05:29) Itching prochlorperazine [From Compazine] Adverse Reaction (Verified 06/19/22 05:29) Difficulty Breathing Home Medications: Doxepin HCl 300 mg PO DAILY 11/14/16 [History] Lisinopril 20 mg [Zestril 20 MG] 20 mg PO DAILY 11/14/16 [History] Venlafaxine HCl [Effexor Xr] 300 mg PO HS 11/14/16 [History] Zolpidem Tartrate 10 mg PO HS PRN PRN 09/18/18 [History] Insulin Degludec [Tresiba] 30 unit SQ DAILY 08/24/19 [History] Empagliflozin [Jardiance] 10 mg PO DAILY 11/14/19 [History] Quetiapine Fumarate [Seroquel] 300 mg PO QHS 11/19/20 [History] Hx Tetanus, Diphtheria Vaccination/Date Given: Yes Hx Influenza Vaccination/Date Given: Yes Hx Pneumococcal Vaccination/Date Given: No Travel Risk - International Travel Have you traveled outside of the country in past 3 weeks: No - Coronavirus Screening Are you exhibiting any of the following symptoms?: No Close contact with a COVID-19 positive Pt in past 14-21 Days: No - Vaccine Status Have you recieved a Covid-19 vaccination: Yes 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 - Vaccination Dates Date of 2cond Vaccination (if applicable): 06/10/2020 - Review of Systems Constitutional: No Symptoms Ears, Nose, & Throat: No Symptoms Respiratory: No Symptoms Cardiac: No Symptoms Abdominal/Gastrointestinal: No Symptoms Musculoskeletal: Arthralgias, Joint Pain Skin: No Symptoms Neurological: No Symptoms Hematologic/Lymphatic: No Symptoms Immunological/Allergic: No Symptoms - Past Medical History Pertinent Past Medical History: Yes Neurological History: Other ENT History: No Pertinent History Cardiac History: High Cholesterol, Hypertension Respiratory History: No Pertinent History Endocrine Medical History: Diabetes Type II Musculoskeletal History: Osteoarthritis GI Medical History: Esophageal Disorder, GERD, Gallbladder Disease History: No Pertinent History Psycho-Social History: Bipolar, Depression Female Reproductive Disorders: Endometriosis Other Medical History: headaches, multiple R toe fractures, R carpal tunnel release, B hand reconstruction - Past Surgical History Past Surgical History: Yes Neuro Surgical History: No Pertinent History Cardiac: No Pertinent History Respiratory: No Pertinent History Gastrointestinal: Cholecystectomy Genitourinary: No Pertinent History Musculoskeletal: Orthopedic Surgery Female Surgical History: Hysterectomy Other Surgical History: r foot,carpal tunnel,rt and lt wrist ligament repair, R shoulder - Social History Smoking Status: Current every day smoker How long have you smoked: 40 yrs Exposure to second hand smoke: Yes Drug Use: none Patient Lives Alone: No - Nursing Vital Signs Nursing Vital Signs: Initial Vital Signs Pulse Rate 104 H 06/19/22 05:30 Blood Pressure 172/120 06/19/22 05:30 O2 Sat by Pulse Oximetry 96 06/19/22 05:30 Pain Scale Pain Intensity 8 - Physical Exam General Appearance: no apparent distress, alert Eyes, Ears, Nose, Throat Exam: normal ENT inspection Neck Exam: normal inspection Cardiovascular/Respiratory Exam: chest non-tender, normal breath sounds, regular rate/rhythm Shoulder Exam: normal inspection, limited ROM (Right shoulder), pain, soft tissue tenderness Elbow/Forearm Exam: normal inspection, non-tender, no evidence of injury, normal ROM Wrist Exam: normal inspection, non-tender, no evidence of injury, normal ROM Hand Exam: normal inspection, non-tender, no evidence of injury, normal ROM Neuro/Tendon Exam: normal sensation, normal motor functions 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, 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, cooperative Skin Exam: normal color SpO2 Interpretation: normal SpO2: 97 O2 Delivery: Room Air Ordered Tests: Active Orders 24 hr Category Date Time Status SHOULDER Stat Exams 06/19/22 05:41 Taken Medication Summary Discontinued Medications Generic Name Dose Route Start Last Admin Trade Name Aquiles PRN Reason Stop Dose Admin Ketorolac Tromethamine 30 mg 06/19/22 05:42 06/19/22 05:46 Ketorolac Tromethamine 30 Mg/Ml Inj IM 06/19/22 05:43 30 mg STAT ONE Administration Ketorolac Tromethamine Confirm 06/19/22 05:45 Ketorolac Tromethamine 30 Mg/Ml Inj Administered 06/19/22 05:46 Dose 30 mg .ROUTE .STK-MED ONE - Progress Progress: improved, pain not gone completely Progress Note: 06/19/22 06:14 52-year-old female with history of multiple right shoulder surgery is evaluated in the ER after her right arm/shoulder was pulled by someone at work to stand up producing severe pain limiting range of motion. Patient does have some anterior shoulder tenderness without any Hill-Sachs deformity and intact distal neurovascular. She is given Toradol for symptomatic relief and x-rays are obtained which are negative reviewed by me for acute fracture dislocation, official report is pending. I believe patient has shoulder strain, recommended NSAIDs, muscle relaxants, ice and sling and early next week orthopedics follow- up. Discussed signs symptoms of worsening needing return to ER which she seems understanding. Counseled pt/family regarding: diagnosis, need for follow-up, rad results Medical Desision Making - Discussion of managment Reviewed:: Test results Agreed on:: Treatment plan, need for follow-up - Diagnostic Testing Diagnostic test were ordered, analyzed, and reviewed by me: Yes Radiological Interpretation: Interpreted by me, Reviewed by me - Risk of complications The pt has a mod risk of morbidity or mortality based on: Need for prescription drug management - Departure Departure Disposition: Home Clinical Impression: Strain of shoulder, right Condition: Stable Critical Care Time: No Referrals: ALIYA ROMERO [Primary Care Provider] - Follow up with PCP 2 days TYLER JIMÉNEZ [ACTIVE STAFF] - Follow up/PCP as directed (Call for appointment for reevaluation in 1 to 2 days.) Instructions: Shoulder Sprain (DC), Shoulder Tendinopathy (DC) Additional Instructions: Take pain medications as needed. Avoid exertional activities, follow-up with primary care/orthopedics for reevaluation. Return to ER for any worsening. Use sling which you have at home as recommended. Prescriptions: Diclofenac Sodium 50 mg PO TID PRN 7 Days #20 tab PRN Reason: Pain Methocarbamol [Robaxin] 500 mg PO TID 7 Days #20 tablet
[2022-06-19 06:31] VITALS: BP 151/107; PULSE 90; O2SAT 96
--- NOTE | 2022-06-19 08:03 | XRAY ---
Indication: Pain following fall. Comparison: None 3 view right shoulder demonstrates osteopenia and remote distal clavicle resection. No other bony, articular, or soft tissue abnormalities.
== END 2022-06-19 06:31 | disposition home or self-care (01) ==
LOC: ED 05:23
DX: S46.911A Strain of unspecified muscle, fascia and tendon at shoulder and upper arm level, right arm, initial encounter (principal); X50.0XXA Overexertion from strenuous movement or load, initial encounter; Y93.F9 Activity, other caregiving; Y99.0 Civilian activity done for income or pay; E78.5 Hyperlipidemia, unspecified; I10 Essential (primary) hypertension; E11.9 Type 2 diabetes mellitus without complications; Z79.4 Long term (current) use of insulin; Z79.84 Long term (current) use of oral hypoglycemic drugs; Z79.899 Other long term (current) drug therapy; Z72.0 Tobacco use
CPT/HCPCS: 73030; 96372; 99283; J1885

== ENCOUNTER 2022-08-07 11:07 | Emergency (ER) | payer BC ==
--- NOTE | 2022-08-07 11:10 | ERPHSYRPT ---
- History of Present Illness Time Seen by Provider: 08/07/22 11:10 Source: patient Exam Limitations: no limitations Physician History: This is a 52-year-old white female patient who noticed redness and swelling in her left lateral waistline and left posterior thigh. It is unclear whether she had an insect bite or sudden eruption of abscess. She is never had sudden eruption of abscesses in the past. She noticed this 8 days ago. They are not itchy but they are tender. Timing/Duration: day(s) (8) Quality: painful Severity: mild (To moderate) Location: extremities (Left lateral waistline and left posterior thigh) Possible Causes: insect bite, insect sting Associated Symptoms: change in skin texture Allergies/Adverse Reactions: adhesive tape Allergy (Verified 06/19/22 05:29) Blisters cyclobenzaprine [From Flexeril] Allergy (Verified 06/19/22 05:29) morphine Adverse Reaction (Verified 06/19/22 05:29) Itching prochlorperazine [From Compazine] Adverse Reaction (Verified 06/19/22 05:29) Difficulty Breathing Home Medications: Doxepin HCl 300 mg PO DAILY 11/14/16 [History] Lisinopril 20 mg [Zestril 20 MG] 20 mg PO DAILY 11/14/16 [History] Venlafaxine HCl [Effexor Xr] 300 mg PO HS 11/14/16 [History] Zolpidem Tartrate 10 mg PO HS PRN PRN 09/18/18 [History] Insulin Degludec [Tresiba] 30 unit SQ DAILY 08/24/19 [History] Empagliflozin [Jardiance] 10 mg PO DAILY 11/14/19 [History] Quetiapine Fumarate [Seroquel] 300 mg PO QHS 11/19/20 [History] Doxycycline Hyclate 100 mg PO DAILY 08/07/22 [History] Hx Tetanus, Diphtheria Vaccination/Date Given: Yes Hx Influenza Vaccination/Date Given: Yes Hx Pneumococcal Vaccination/Date Given: No Travel Risk - International Travel Have you traveled outside of the country in past 3 weeks: No - Coronavirus Screening Are you exhibiting any of the following symptoms?: No Close contact with a COVID-19 positive Pt in past 14-21 Days: No - Vaccine Status Have you recieved a Covid-19 vaccination: Yes 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: [employer] Vaccination Dates Date of 2cond Vaccination (if applicable): 06/10/2020 - Review of Systems Constitutional: No Symptoms Eyes: No Symptoms Ears, Nose, & Throat: No Symptoms Respiratory: No Symptoms Cardiac: No Symptoms Abdominal/Gastrointestinal: No Symptoms Genitourinary Symptoms: No Symptoms Musculoskeletal: No Symptoms Skin: Induration (Left lateral waistline and left posterior thigh) Neurological: No Symptoms Psychological: No Symptoms Endocrine: No Symptoms Hematologic/Lymphatic: No Symptoms Immunological/Allergic: No Symptoms All Other Systems: Reviewed and Negative - Past Medical History Pertinent Past Medical History: Yes Neurological History: Other ENT History: No Pertinent History Cardiac History: High Cholesterol, Hypertension Respiratory History: No Pertinent History Endocrine Medical History: Diabetes Type II Musculoskeletal History: Osteoarthritis GI Medical History: Esophageal Disorder, GERD, Gallbladder Disease History: No Pertinent History Psycho-Social History: Bipolar, Depression Female Reproductive Disorders: Endometriosis Other Medical History: headaches, multiple R toe fractures, R carpal tunnel release, B hand reconstruction - Past Surgical History Past Surgical History: Yes Neuro Surgical History: No Pertinent History Cardiac: No Pertinent History Respiratory: No Pertinent History Gastrointestinal: Cholecystectomy Genitourinary: No Pertinent History Musculoskeletal: Orthopedic Surgery Female Surgical History: Hysterectomy Other Surgical History: r foot,carpal tunnel,rt and lt wrist ligament repair, R shoulder - Social History Smoking Status: Current every day smoker How long have you smoked: 40 yrs Exposure to second hand smoke: Yes Drug Use: none Patient Lives Alone: No - Nursing Vital Signs Nursing Vital Signs: Initial Vital Signs Temperature 98.3 F 08/07/22 11:11 Pulse Rate 108 H 08/07/22 11:11 Respiratory Rate 22 08/07/22 11:11 Blood Pressure 160/114 08/07/22 11:11 O2 Sat by Pulse Oximetry 97 08/07/22 11:11 Pain Scale Pain Intensity 8 - Physical Exam General Appearance: no apparent distress, alert, anxiety Eye Exam: PERRL/EOMI, eyes nml inspection Ears, Nose, Throat Exam: normal ENT inspection, moist mucous membranes Neck Exam: normal inspection, non-tender, supple, full range of motion Respiratory Exam: normal breath sounds, lungs clear, airway intact, No chest tenderness, No respiratory distress Cardiovascular Exam: regular rate/rhythm, normal heart sounds, normal peripheral pulses Gastrointestinal/Abdomen Exam: soft, normal bowel sounds, No tenderness Pelvic Exam: not done Rectal Exam: not done Back Exam: normal inspection, normal range of motion, No CVA tenderness, No vertebral tenderness Extremity Exam: normal range of motion, pelvis stable, tenderness (Small area left lateral waistline with redness and left posterior thigh redness and induration and tenderness) Neurologic Exam: alert, 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, cooperative, 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 Level of complexity and the work-up performed is based on review of the patient's past medical history, review of the patient's medication list, review of the patient's drug allergy list, history of present illness and physical finds on examination. The patient does not require any laboratory radiographic studies. She has indurated sites without abscess formation at this point in the left lateral waistline and the left posterior thigh. We will provide her with Bactrim DS antibiotic and a [place] 5/325 pill here in the emergency department followed by outpatient Bactrim DS No. 14 tablets 1 twice a day for 7 days prescription that will be remotely sent to her pharmacy Counseled pt/family regarding: diagnosis, need for follow-up Medical Desision Making - Diagnostic Testing Diagnostic test were ordered, analyzed, and reviewed by me: No - Risk of complications The pt has a mod risk of morbidity or mortality based on: Need for prescription drug management - Departure Departure Disposition: Home Clinical Impression: Induration of skin, Cellulitis Condition: Stable Critical Care Time: No Referrals: ALIYA ROMERO [Primary Care Provider] - Follow up/PCP as directed Additional Instructions: Keep the sites clean daily with soap and water. Do not apply lotions ointments or creams to the site. May cover each site with a bandage. Take the antibiotics as prescribed. Follow-up with your primary care provider tomorrow, 08/08/2022 for further evaluation and management including management of pain. Prescriptions: Smz/Tmp Ds Tablet [Bactrim Ds Tablet] 1 udtab PO BID #14 tablet
[2022-08-07 11:16] VITALS: BP 160/114; PULSE 108; O2SAT 97
[2022-08-07] MEDS ORDERED: BACTRIM DS TABLET PO ONE ×2 (11:37→12:05)
[2022-08-07] MEDS ORDERED: NORCO 5/325 MG PO ONE (11:37)
[2022-08-07] MEDS ORDERED: NORCO 5/325 MG ONE (12:05)
== END 2022-08-07 12:09 | disposition home or self-care (01) ==
LOC: ED 11:07
DX: L03.116 Cellulitis of left lower limb (principal); L03.311 Cellulitis of abdominal wall; R23.4 Changes in skin texture; E78.5 Hyperlipidemia, unspecified; I10 Essential (primary) hypertension; E11.9 Type 2 diabetes mellitus without complications; Z79.4 Long term (current) use of insulin; Z79.84 Long term (current) use of oral hypoglycemic drugs; Z79.899 Other long term (current) drug therapy; Z72.0 Tobacco use
CPT/HCPCS: 99282; A9270-GY

== ENCOUNTER 2022-08-16 12:31 | Emergency (ER) | payer BC ==
[2022-08-16 12:53] VITALS: BP 168/96; PULSE 96; O2SAT 96
[2022-08-16] MEDS ORDERED: Zofran 4 MG/2 ML VIAL IV ONE (13:01)
[2022-08-16] MEDS ORDERED: Sodium Chloride 0.9% 1000 ML 1,000 ML IV STA (13:01)
[2022-08-16] MEDS ORDERED: TORAdol 30 mg Injection IV ONE (13:01)
[2022-08-16] MEDS ORDERED: TORAdol 30 mg Injection ONE (13:05)
[2022-08-16] MEDS ORDERED: Zofran 4 MG/2 ML VIAL ONE (13:05)
[2022-08-16] MEDS ORDERED: Sodium Chloride 0.9% 1000 ML 1,000 ML ONE (13:05)
[2022-08-16 13:17] LABS: Absolute Neutrophil Ct (ANC) 5.44 x10^3/uL (1.4-6.9); BASOPHIL % 0.3 % (0.0-0.4); Basophil (Absolute #) 0.03 x10^3/uL (0-0.4); Eosinophil % 1.7 % (0.00-5.0); Eosinophil (Absolute #) 0.15 x10^3/uL (0-0.5); Hematocrit 36.9 % (35-47); Hemoglobin 11.6 g/dL (12.0-16.0); IMMATURE GRAN # 0.03 x10^3u/L (0.00-0.03); IMMATURE GRAN % 0.3 % (0.00-0.4); Lymphocyte (Absolute #) 2.64 x10^3/uL (1.0-4.6); Lymphocytes % 30.3 % (24.0-44.0); Mean Cell Volume 84.1 fL (78-100); Mean Corpuscular Hemoglobin 26.4 pg (26-32); Mean Corpuscular Hgb Concent. 31.4 g/dL (32-36); Mean Platelet Volume 9.5 fL (7.5-11.0); Monocyte (Absolute #) 0.43 x10^3/uL (0.0-1.3); Monocytes % 4.9 % (0.0-12.0); Neutrophil % 62.5 % (36.0-66.0); Platelet Count 321 x10^3/uL (150-450); Red Blood Count 4.39 x10^6/uL (4.1-5.4); Red Cell Distribution Width 14.3 % (11.5-14.0); White Blood Count 8.7 x10^3/uL (4.0-10.5)
[2022-08-16 13:23] LABS: Appearance Clear (Clear); Bacteria None Seen /HPF (None Seen); Bilirubin Negative (Negative); Blood Negative (Negative); Epithelial Cells None Seen /HPF (None Seen); Glucose, Urine >=1000 mg/dL (Negative); Hyaline Casts NONE SEEN /LPF (0-2); Ketones Negative (Negative); Leukocyte Esterase Negative (Negative); Nitrite Negative (Negative); Ph 6.5 (4.6-8.0); Protein,Urine Dip Negative (Negative); RBC 0-2 /HPF (0-5); Urobilinogen 0.2 mg/dL (0.2); WBC 0-2 /HPF (0-5)
[2022-08-16 13:27] LABS: ADD URINE CULTURE? NO (NO)
[2022-08-16 13:37] LABS: ALBUMIN 4.1 g/dL (3.5-5.0); ALKALINE PHOSPHATASE 110 U/L (38-126); ANION GAP 13.2 MEQ/L (5-15); BLOOD UREA NITROGEN 11 mg/dL (7-17); CHLORIDE 105 mmol/L (98-107); Carbon Dioxide 26 mmol/L (22-30); Creatinine 1 0.63 mg/dL (0.52-1.04); EST GLOMERULAR FILTRATION RATE > 60.0 ML/MIN; Glucose 234 mg/dL (74-106); LIPASE 35 U/L (23-300); Potassium 3.3 mmol/L (3.5-5.1); SGOT/AST 24 U/L (14-36); SGPT/ALT 17 U/L (0-35); SODIUM 140 mmol/L (137-145); Total Protein 8.2 g/dL (6.3-8.2)
--- NOTE | 2022-08-16 14:21 | ERPHSYRPT ---
- History of Present Illness Time Seen by Provider: 08/16/22 12:39 Historian: patient Exam Limitations: no limitations Patient Subjective Stated Complaint: pt here for flank and lower abd pain since last night, n/v, blood in urine last night Triage Nursing Assessment: pt alert, resp easy, skin w/d/p. and soft tender to touch . no edema noted, moves all ext well Physician History: 52-year-old female with history of anxiety depression, hypertension, hyperlipidemia, diabetes mellitus presented in the ER with chief complaint of bilateral flank/lower quadrant/suprapubic pain and UTI symptoms. Patient reports she started to have nausea and vomited couple of times yesterday evening and latus was having some difficulty urination with dribbling and hematuria. Around midnight she started to have moderate to severe sharp pain both flank and lower quadrants and some back pain as well. No fever or chills reported. Oswaldo jeong still feels nauseated. Concern for possible being constipated. Timing/Duration: yesterday, gradual onset, worse Activities at Onset: rest Quality: sharpness Abdominal Pain Onset Location: RLQ, LLQ, suprapubic, flank Pain Radiation: no radiation Severity of Pain-Max: moderate Severity of Pain-Current: moderate Modifying Factors: Improves With: rest Associated Symptoms: back, nausea, vomiting Allergies/Adverse Reactions: adhesive tape Allergy (Verified 08/16/22 12:44) Blisters cyclobenzaprine [From Flexeril] Allergy (Verified 08/16/22 12:44) morphine Adverse Reaction (Verified 08/16/22 12:44) Itching prochlorperazine [From Compazine] Adverse Reaction (Verified 08/16/22 12:44) Difficulty Breathing Home Medications: Doxepin HCl 300 mg PO DAILY 11/14/16 [History] Lisinopril 20 mg [Zestril 20 MG] 20 mg PO DAILY 11/14/16 [History] Venlafaxine HCl [Effexor Xr] 300 mg PO HS 11/14/16 [History] Zolpidem Tartrate 10 mg PO HS PRN PRN 09/18/18 [History] Insulin Degludec [Tresiba] 30 unit SQ DAILY 08/24/19 [History] Empagliflozin [Jardiance] 10 mg PO DAILY 11/14/19 [History] Quetiapine Fumarate [Seroquel] 300 mg PO QHS 11/19/20 [History] Doxycycline Hyclate 100 mg PO DAILY 08/07/22 [History] Hx Tetanus, Diphtheria Vaccination/Date Given: No Hx Influenza Vaccination/Date Given: Yes Hx Pneumococcal Vaccination/Date Given: No Immunizations Up to Date: Yes Travel Risk - International Travel Have you traveled outside of the country in past 3 weeks: No - Coronavirus Screening Are you exhibiting any of the following symptoms?: No Close contact with a COVID-19 positive Pt in past 14-21 Days: No - Vaccine Status Have you recieved a Covid-19 vaccination: Yes [employer]: Moderna - Vaccination Dates Date of 2cond Vaccination (if applicable): 06/10/2020 - Review of Systems Constitutional: No Symptoms Eyes: No Symptoms Ears, Nose, & Throat: No Symptoms Respiratory: No Symptoms Cardiac: No Symptoms Abdominal/Gastrointestinal: Abdominal Pain, Nausea, Vomiting Genitourinary Symptoms: Frequency, Hematuria, Hesitancy Musculoskeletal: Back Pain Neurological: No Symptoms Psychological: No Symptoms Hematologic/Lymphatic: No Symptoms Immunological/Allergic: No Symptoms - Past Medical History Pertinent Past Medical History: Yes Neurological History: Other ENT History: No Pertinent History Cardiac History: High Cholesterol, Hypertension Respiratory History: No Pertinent History Endocrine Medical History: Diabetes Type II Musculoskeletal History: Osteoarthritis GI Medical History: Esophageal Disorder, GERD, Gallbladder Disease History: No Pertinent History Psycho-Social History: Bipolar, Depression Female Reproductive Disorders: Endometriosis Other Medical History: headaches, multiple R toe fractures, R carpal tunnel release, B hand reconstruction - Past Surgical History Past Surgical History: Yes Neuro Surgical History: No Pertinent History Cardiac: No Pertinent History Respiratory: No Pertinent History Gastrointestinal: Cholecystectomy Genitourinary: No Pertinent History Musculoskeletal: Orthopedic Surgery Female Surgical History: Hysterectomy Other Surgical History: r foot,carpal tunnel,rt and lt wrist ligament repair, R shoulder - Social History Smoking Status: Current every day smoker How long have you smoked: 40 yrs Exposure to second hand smoke: Yes Drug Use: none Patient Lives Alone: No - Nursing Vital Signs Nursing Vital Signs: Initial Vital Signs Temperature 97.4 F 08/16/22 12:50 Pulse Rate 96 H 08/16/22 12:50 Respiratory Rate 18 08/16/22 12:50 Blood Pressure 168/96 08/16/22 12:50 O2 Sat by Pulse Oximetry 96 08/16/22 12:50 Pain Scale Pain Intensity 6 - Physical Exam General Appearance: no apparent distress, alert Eye Exam: PERRL/EOMI Ears, Nose, Throat Exam: normal ENT inspection Neck Exam: normal inspection, full range of motion Respiratory Exam: normal breath sounds, lungs clear Cardiovascular Exam: regular rate/rhythm, normal heart sounds Gastrointestinal/Abdomen Exam: soft, normal bowel sounds, tenderness (Bilateral lower abdomen with no guarding or rebound tenderness. Negative CVA tenderness bilaterally.) Back Exam: normal inspection Extremity Exam: normal inspection, normal range of motion Neurologic Exam: alert, 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, cooperative Skin Exam: normal color SpO2 Interpretation: normal SpO2: 96 O2 Delivery: Room Air Ordered Tests: Active Orders 24 hr Category Date Time Status IV Insertion STAT Care 08/16/22 13:01 Active NPO (ED) STAT Care 08/16/22 13:01 Active ABDOMEN AND PELVIS W/0 CONTRAS [CT] Stat Exams 08/16/22 13:02 Completed CBC W DIFF Stat Lab 08/16/22 13:04 Completed CMP Stat Lab 08/16/22 13:04 Completed LIPASE Stat Lab 08/16/22 13:04 Completed UA W/RFX UR CULTURE Stat Lab 08/16/22 13:04 Completed Medication Summary Discontinued Medications Generic Name Dose Route Start Last Admin Trade Name Michaelq PRN Reason Stop Dose Admin Sodium Chloride 1,000 mls @ 999 mls/hr 08/16/22 13:01 08/16/22 14:09 Sodium Chloride 0.9% 1000 Ml IV 08/16/22 14:01 Infused .Q1H1M STA Infusion Sodium Chloride Confirm 08/16/22 13:05 Sodium Chloride 0.9% 1000 Ml Administered 08/16/22 13:06 Dose 1,000 mls @ ud .ROUTE .STK-MED ONE Ketorolac Tromethamine 30 mg 08/16/22 13:01 08/16/22 13:11 Ketorolac Tromethamine 30 Mg/Ml Inj IV 08/16/22 13:02 30 mg STAT ONE Administration Ketorolac Tromethamine Confirm 08/16/22 13:05 Ketorolac Tromethamine 30 Mg/Ml Inj Administered 08/16/22 13:06 Dose 30 mg .ROUTE .STK-MED ONE Morphine Sulfate 4 mg 08/16/22 14:44 08/16/22 14:52 Morphine Sulfate 4 Mg/Ml Injection IV 08/16/22 14:45 4 mg STAT ONE Administration Morphine Sulfate Confirm 08/16/22 14:52 Morphine Sulfate 4 Mg/Ml Injection Administered 08/16/22 14:53 Dose 4 mg .ROUTE .STK-MED ONE Ondansetron HCl 4 mg 08/16/22 13:01 08/16/22 13:09 Ondansetron Hcl 4 Mg/2 Ml Vial IV 08/16/22 13:02 4 mg STAT ONE Administration Ondansetron HCl Confirm 08/16/22 13:05 Ondansetron Hcl 4 Mg/2 Ml Vial Administered 08/16/22 13:06 Dose 4 mg .ROUTE .STK-MED ONE Lab/Rad Data: Laboratory Result Diagrams 08/16/22 13:04 08/16/22 13:04 Laboratory Results 08/16/22 08/16/22 08/16/22 Range/Units 13:04 13:04 13:04 WBC 8.7 (4.0-10.5) x10^3/uL RBC 4.39 (4.1-5.4) x10^6/uL Hgb 11.6 L (12.0-16.0) g/dL Hct 36.9 (35-47) % MCV 84.1 (78-100) fL MCH 26.4 (26-32) pg MCHC 31.4 L (32-36) g/dL RDW 14.3 H (11.5-14.0) % Plt Count 321 (150-450) x10^3/uL MPV 9.5 (7.5-11.0) fL Gran % 62.5 (36.0-66.0) % Immature Gran % (Auto) 0.3 (0.00-0.4) % Nucleat RBC Rel Count 0.0 (0.00-0.1) % Eos # (Auto) 0.15 (0-0.5) x10^3/uL Immature Gran # (Auto) 0.03 (0.00-0.03) x10^3u/L Absolute Lymphs (auto) 2.64 (1.0-4.6) x10^3/uL Absolute Monos (auto) 0.43 (0.0-1.3) x10^3/uL Absolute Nucleated RBC 0.00 (0.00-0.01) x10^3u/L Lymphocytes % 30.3 (24.0-44.0) % Monocytes % 4.9 (0.0-12.0) % Eosinophils % 1.7 (0.00-5.0) % Basophils % 0.3 (0.0-0.4) % Absolute Granulocytes 5.44 (1.4-6.9) x10^3/uL Basophils # 0.03 (0-0.4) x10^3/uL Sodium 140 (137-145) mmol/L Potassium 3.3 L (3.5-5.1) mmol/L Chloride 105 (98-107) mmol/L Carbon Dioxide 26 (22-30) mmol/L Anion Gap 13.2 (5-15) MEQ/L BUN 11 (7-17) mg/dL Creatinine 0.63 (0.52-1.04) mg/dL Estimated GFR > 60.0 ML/MIN Glucose 234 H (74-106) mg/dL Calcium 9.0 (8.4-10.2) mg/dL Total Bilirubin 0.30 (0.2-1.3) mg/dL AST 24 (14-36) U/L ALT 17 (0-35) U/L Alkaline Phosphatase 110 (38-126) U/L Serum Total Protein 8.2 (6.3-8.2) g/dL Albumin 4.1 (3.5-5.0) g/dL Lipase 35 (23-300) U/L Urine Color Yellow (Yellow) Urine Appearance Clear (Clear) Urine pH 6.5 (4.6-8.0) Ur Specific Goodman 1.020 (1.005-1.030) Urine Protein Negative (Negative) Urine Glucose (UA) >=1000 A (Negative) mg/dL Urine Ketones Negative (Negative) Urine Blood Negative (Negative) Urine Nitrite Negative (Negative) Urine Bilirubin Negative (Negative) Urine Urobilinogen 0.2 (0.2) mg/dL Ur Leukocyte Esterase Negative (Negative) U Hyaline Cast (Auto) NONE SEEN (0-2) /LPF Urine Microscopic RBC 0-2 (0-5) /HPF Urine Microscopic WBC 0-2 (0-5) /HPF Ur Epithelial Cells None Seen (None Seen) /HPF Urine Bacteria None Seen (None Seen) /HPF Urine Culture Reflexed NO (NO) - Progress Progress: improved, re-examined Progress Note: 08/16/22 14:20 52-year-old female with history of anxiety depression, hypertension, hyperlipidemia, diabetes mellitus presented in the ER with chief complaint of b ilateral flank/lower quadrant/suprapubic pain and UTI symptoms. Patient reports she started to have nausea and vomited couple of times yesterday evening and latus was having some difficulty urination with dribbling and hematuria. Around midnight she started to have moderate to severe sharp pain both flank and lower quadrants and some back pain as well. No fever or chills reported. Patient still feels nauseated. Concern for possible being constipated. Patient has mild to moderate tenderness in the lower abdomen but no guarding or rebound tenderness. She is given fluids and symptomatic treatment, on reevaluation feeling better. Has normal white count, chemistries showed mild hyperglycemia but no other acute findings. No UTI. CT abdomen pelvis is pending. 08/16/22 15:03 CT abdomen pelvis is negative for acute abdominal pelvic findings. Patient has no UTI. Feeling better on reevaluation. No peritoneal signs on repeated eval. Patient has history of hysterectomy and could have some adhesions causing this pain or she might had a stone which she already passed. No hematuria on today's UA. Do not think she needs antibiotic or any other work-up. She is being discharged, recommended taking Tylenol/ibuprofen and outpatient follow-up. Discussed signs symptoms of worsening needing return to ER which she seems understanding. Counseled pt/family regarding: lab results, diagnosis, need for follow-up, rad results Medical Desision Making - Diagnostic Testing Diagnostic test were ordered, analyzed, and reviewed by me: Yes Radiological Interpretation: Reviewed by me, Teleradiologist Report - Risk of complications The pt has a mod risk of morbidity or mortality based on: Need for prescription drug management - Departure Departure Disposition: Home Clinical Impression: Lower abdominal pain Condition: Stable Critical Care Time: No Referrals: ALIYA ROMERO [Primary Care Provider] - Follow up with PCP 2 days Instructions: Flank Pain, Severe Abdominal Pain, Adult (DC) Additional Instructions: Take Tylenol/ibuprofen as needed. Follow-up with primary care for reevaluation. Return to ER for intractable abdominal pain, difficulty urination, intractable vomiting/fever chills etc. Prescriptions: Ibuprofen 600 mg PO Q6HPRN PRN 10 Days #20 tablet PRN Reason: Pain
--- NOTE | 2022-08-16 14:34 | XRAY ---
CLINICAL HISTORY:Flank pain/hematuria. COMPARISON:None. TECHNIQUES:CT scan of the abdomen and pelvis without intravenous contrast administration. DLP; 1266. FINDINGS: The liver is of average size, regular contour and homogeneous texture with no focal lesion could be detected on non-contrast basis. No intra hepatic biliary radical dilatation. The GB is surgically removed. The spleen is of average size and shape with homogeneous parenchyma and no focal lesion could be noted on non-contrast basis. Both kidneys are of normal size, shape and parenchymal thickness with no stones, back pressure changes or space occupying lesions with limitations of non-contrast examination. The other retroperitoneal structures including the pancreas and adrenal glands are grossly within normal limits. No significant lymph solange enlargement or ascetic fluid collection. The uterus is not well visualized atrophied. No adnexal solid or cystic lesions. Normal filling of the urinary bladder with no stones, masses, or diverticula. Bone window settings showed no evidence of fractures or destructive lesions. Lung window settings showed right middle lung lobe pulmonary nodule 8 mm in size with smooth margins, otherwise normal appearance of both basal lung segments. IMPRESSION: 1. Unremarkable non-contrast CT scan of the abdomen and pelvis. No obstructing calculus or hydronephrosis identified. 2. Right middle lung lobe pulmonary nodule. Dedicated CT chest is advised. Electronically Signed by: Fernando Goodrich MD. (08/16/2022 13:28:49 [employer])
[2022-08-16] MEDS ORDERED: MORPHINE SULFATE 4 MG INJ IV ONE (14:44)
[2022-08-16] MEDS ORDERED: MORPHINE SULFATE 4 MG INJ ONE (14:52)
== END 2022-08-16 15:44 | disposition home or self-care (01) ==
LOC: ED 12:31
DX: R10.30 Lower abdominal pain, unspecified (principal); R10.2 Pelvic and perineal pain; R11.2 Nausea with vomiting, unspecified; R31.9 Hematuria, unspecified; I10 Essential (primary) hypertension; E78.5 Hyperlipidemia, unspecified; E11.9 Type 2 diabetes mellitus without complications; Z79.4 Long term (current) use of insulin; Z79.84 Long term (current) use of oral hypoglycemic drugs; Z79.899 Other long term (current) drug therapy; Z72.0 Tobacco use
CPT/HCPCS: 36000; 36415; 74176; 80053; 81001; 83690; 85025; 96360; 96374; 96375; 99284; J1885; J2270; J2405

== ENCOUNTER 2022-10-10 12:23 | Emergency (ER) | payer BC ==
[2022-10-10 13:05] VITALS: TEMP 97.4
--- NOTE | 2022-10-10 14:21 | ERPHSYRPT ---
- History of Present Illness Historian: patient Exam Limitations: no limitations Patient Subjective Stated Complaint: "My doctor started me on Linzess to help me with my diarrhea. I've had intermittent diarrhea for over a month but since yesterday I have pain in my belly hurts so bad and I feel dizzy and lightheaded." Triage Nursing Assessment: Pt presents to ER with complaints of diffused abdominal pains since yesrterday. States has had diarrhea x 1 month and on Linze ss. States diarrhea is getting worse. Pt complains of nausea. Skin is pink, warm, and dry. Respirations are easy. Pt complains of dizziness and lightheadedness since yesterday as well. Abdomen appears soft and tender upon exam. Hyperactive bowel sounds noted. Physician History: 52 yo WF w nausea/diarrhea/R sided abdominal pain x 1 day. Pt has been taking Linzess x 1 month for constipation. Pain is 9/10, stabbing, and nothing makes better/worse. She denies fever/dysuria /hematuria/melena/hematochezia/cough/coryza. PMH includes damon/TAM/DM/hyperlipidemia/<1ppd smoking/obesity. Timing/Duration: yesterday Activities at Onset: rest Quality: stabbing Abdominal Pain Onset Location: epigastric Pain Radiation: no radiation Severity of Pain-Max: severe Severity of Pain-Current: severe Modifying Factors: Improves With: nothing Allergies/Adverse Reactions: adhesive tape Allergy (Verified 10/10/22 13:05) Blisters cyclobenzaprine [From Flexeril] Allergy (Verified 10/10/22 13:05) morphine Adverse Reaction (Verified 10/10/22 13:05) Itching prochlorperazine [From Compazine] Adverse Reaction (Verified 10/10/22 13:05) Difficulty Breathing Home Medications: Doxepin HCl 300 mg PO DAILY 11/14/16 [History] Lisinopril 20 mg [Zestril 20 MG] 20 mg PO DAILY 11/14/16 [History] Venlafaxine HCl [Effexor Xr] 300 mg PO HS 11/14/16 [History] Zolpidem Tartrate 10 mg PO HS PRN PRN 09/18/18 [History] Insulin Degludec [Tresiba] 44 unit SQ DAILY 08/24/19 [History] Quetiapine Fumarate [Seroquel] 300 mg PO QHS 11/19/20 [History] Linaclotide [Linzess] 290 mcg PO DAILY 10/10/22 [History] Hx Tetanus, Diphtheria Vaccination/Date Given: Yes Hx Influenza Vaccination/Date Given: No Hx Pneumococcal Vaccination/Date Given: No Immunizations Up to Date: Yes Travel Risk - International Travel Have you traveled outside of the country in past 3 weeks: No - Coronavirus Screening Are you exhibiting any of the following symptoms?: No Close contact with a COVID-19 positive Pt in past 14-21 Days: No - Vaccine Status Have you recieved a Covid-19 vaccination: Yes 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 - Vaccination Dates Date of 2cond Vaccination (if applicable): 06/10/2020 - Review of Systems Constitutional: No Symptoms Eyes: No Symptoms Ears, Nose, & Throat: No Symptoms Respiratory: No Symptoms Cardiac: No Symptoms Abdominal/Gastrointestinal: No Symptoms, Abdominal Pain, Nausea, Diarrhea Genitourinary Symptoms: No Symptoms Musculoskeletal: No Symptoms Skin: No Symptoms Neurological: No Symptoms Psychological: No Symptoms Endocrine: No Symptoms Hematologic/Lymphatic: No Symptoms Immunological/Allergic: No Symptoms - Past Medical History Pertinent Past Medical History: Yes Neurological History: Other ENT History: No Pertinent History Cardiac History: High Cholesterol, Hypertension Respiratory History: No Pertinent History Endocrine Medical History: Diabetes Type II Musculoskeletal History: Osteoarthritis GI Medical History: Esophageal Disorder, GERD, Gallbladder Disease History: No Pertinent History Psycho-Social History: Bipolar, Depression Female Reproductive Disorders: Endometriosis Other Medical History: headaches, multiple R toe fractures, R carpal tunnel release, B hand reconstruction - Past Surgical History Past Surgical History: Yes Neuro Surgical History: No Pertinent History Cardiac: No Pertinent History Respiratory: No Pertinent History Gastrointestinal: Cholecystectomy Genitourinary: No Pertinent History Musculoskeletal: Orthopedic Surgery Female Surgical History: Hysterectomy Other Surgical History: r foot,carpal tunnel,rt and lt wrist ligament repair, R shoulder - Social History Smoking Status: Current every day smoker How long have you smoked: 40 yrs Exposure to second hand smoke: Yes Drug Use: none Patient Lives Alone: No - Nursing Vital Signs Nursing Vital Signs: Initial Vital Signs Temperature 97.4 F 10/10/22 12:58 Pulse Rate 113 H 10/10/22 12:58 Respiratory Rate 20 10/10/22 12:58 Blood Pressure 113/79 10/10/22 12:58 O2 Sat by Pulse Oximetry 96 10/10/22 12:58 Pain Scale Pain Intensity 2 Tachy - Physical Exam General Appearance: no apparent distress Eye Exam: PERRL/EOMI, eyes nml inspection Ears, Nose, Throat Exam: normal ENT inspection, TMs normal, pharynx normal, emmy st mucous membranes Neck Exam: normal inspection, non-tender, supple, full range of motion, No meningismus, No mass, No Brudzinski, No Kernig's Respiratory Exam: normal breath sounds, lungs clear, airway intact, No respiratory distress Cardiovascular Exam: tachycardia, capillary refill <2 sec, No murmur Gastrointestinal/Abdomen Exam: soft, normal bowel sounds, tenderness (RUQ/RLQ moderate TTP wo guarding or rebound) Back Exam: normal inspection, normal range of motion Extremity Exam: normal inspection, normal range of motion Neurologic Exam: alert, 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, cooperative, 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 tested, normal mood/affect, nml cerebellar function, nml station & gait, sensation nml Skin Exam: normal color, warm, dry, No rash Lymphatic Exam: No adenopathy SpO2 Interpretation: normal SpO2: 97 O2 Delivery: Room Air - Course Nursing assessment & vital signs reviewed: Yes - CT Exams Abdomen/Pelvis CT Interpretation: Discussed w/radiologist (Nothing acute) Ordered Tests: Active Orders 24 hr Category Date Time Status IV Insertion STAT Care 10/10/22 14:19 Completed ABDOMEN AND PELVIS W/0 CONTRAS [CT] Stat Exams 10/10/22 14:20 Completed AMYLASE Stat Lab 10/10/22 14:19 Completed CBC W DIFF Stat Lab 10/10/22 15:02 Completed CMP Stat Lab 10/10/22 14:19 Completed LIPASE Stat Lab 10/10/22 14:19 Completed Lactic Acid Stat Lab 10/10/22 14:56 Completed TROPONIN Q4H Lab 10/10/22 15:02 Completed TROPONIN Q4H Lab 10/10/22 18:30 Ordered TROPONIN Q4H Lab 10/10/22 22:30 Ordered UA W/RFX UR CULTURE Stat Lab 10/10/22 14:03 Completed Medication Summary Discontinued Medications Generic Name Dose Route Start Last Admin Trade Name Freq PRN Reason Stop Dose Admin Fentanyl Citrate 50 mcg 10/10/22 14:47 10/10/22 14:51 Fentanyl Citrate 100 Mcg/2 Ml* Vial IV 10/10/22 14:48 50 mcg STAT ONE Administration Fentanyl Citrate Confirm 10/10/22 14:47 Fentanyl Citrate 100 Mcg/2 Ml* Vial Administered 10/10/22 14:48 Dose 100 mcg .ROUTE .STK-MED ONE Fentanyl Citrate 100 mcg 10/10/22 16:07 10/10/22 16:15 Fentanyl Citrate 100 Mcg/2 Ml* Vial IV 10/10/22 16:08 100 mcg STAT ONE Administration Fentanyl Citrate Confirm 10/10/22 16:14 Fentanyl Citrate 100 Mcg/2 Ml* Vial Administered 10/10/22 16:15 Dose 100 mcg .ROUTE .STK-MED ONE Sodium Chloride 1,000 mls @ 999 mls/hr 10/10/22 16:13 10/10/22 17:16 Sodium Chloride 0.9% 1000 Ml IV 10/10/22 17:13 Infused .Q1H1M STA Infusion Sodium Chloride Confirm 10/10/22 16:14 Sodium Chloride 0.9% 1000 Ml Administered 10/10/22 16:15 Dose 1,000 mls @ ud .ROUTE .STK-MED ONE Ondansetron HCl 4 mg 10/10/22 14:47 10/10/22 14:51 Ondansetron Hcl 4 Mg/2 Ml Vial IV 10/10/22 14:48 4 mg STAT ONE Administration Ondansetron HCl Confirm 10/10/22 14:47 Ondansetron Hcl 4 Mg/2 Ml Vial Administered 10/10/22 14:48 Dose 4 mg .ROUTE .STK-MED ONE Lab/Rad Data: Laboratory Result Diagrams 10/10/22 15:02 10/10/22 14:19 Laboratory Results 10/10/22 10/10/22 10/10/22 Range/Units 16:20 15:02 15:02 WBC 7.9 (4.0-10.5) x10^3/uL RBC 4.43 (4.1-5.4) x10^6/uL Hgb 11.7 L (12.0-16.0) g/dL Hct 37.3 (35-47) % MCV 84.2 (78-100) fL MCH 26.4 (26-32) pg MCHC 31.4 L (32-36) g/dL RDW 14.9 H (11.5-14.0) % Plt Count 306 (150-450) x10^3/uL MPV 9.3 (7.5-11.0) fL Gran % 59.1 (36.0-66.0) % Immature Gran % (Auto) 0.4 (0.00-0.4) % Nucleat RBC Rel Count 0.0 (0.00-0.1) % Eos # (Auto) 0.12 (0-0.5) x10^3/uL Immature Gran # (Auto) 0.03 (0.00-0.03) x10^3u/L Absolute Lymphs (auto) 2.57 (1.0-4.6) x10^3/uL Absolute Monos (auto) 0.50 (0.0-1.3) x10^3/uL Absolute Nucleated RBC 0.00 (0.00-0.01) x10^3u/L Lymphocytes % 32.4 (24.0-44.0) % Monocytes % 6.3 (0.0-12.0) % Eosinophils % 1.5 (0.00-5.0) % Basophils % 0.3 (0.0-0.4) % Absolute Granulocytes 4.69 (1.4-6.9) x10^3/uL Basophils # 0.02 (0-0.4) x10^3/uL Sodium (137-145) mmol/L Potassium (3.5-5.1) mmol/L Chloride (98-107) mmol/L Carbon Dioxide (22-30) mmol/L Anion Gap (5-15) MEQ/L BUN (7-17) mg/dL Creatinine (0.52-1.04) mg/dL Estimated GFR ML/MIN Glucose (74-106) mg/dL Lactic Acid (0.4-2.0) Calcium (8.4-10.2) mg/dL Total Bilirubin (0.2-1.3) mg/dL AST (14-36) U/L ALT (0-35) U/L Alkaline Phosphatase (38-126) U/L Troponin I < 0.012 (0.000-0.034) ng/mL Serum Total Protein (6.3-8.2) g/dL Albumin (3.5-5.0) g/dL Amylase (30-110) U/L Lipase (23-300) U/L Urine Color (Yellow) Urine Appearance (Clear) Urine pH (4.6-8.0) Ur Specific [place] (1.005-1.030) Urine Protein (Negative) Urine Glucose (UA) (Negative) mg/dL Urine Ketones (Negative) Urine Blood (Negative) Urine Nitrite (Negative) Urine Bilirubin (Negative) Urine Urobilinogen (0.2) mg/dL Ur Leukocyte Esterase (Negative) U Hyaline Cast (Auto) (0-2) /LPF Urine Microscopic RBC (0-5) /HPF Urine Microscopic WBC (0-5) /HPF Ur Epithelial Cells (None Seen) /HPF Urine Bacteria (None Seen) /HPF Urine Culture Reflexed (NO) Influenza Type A Ag NEGATIVE (NEGATIVE) Influenza Type B Ag NEGATIVE (NEGATIVE) RSV (PCR) NEGATIVE (NEGATIVE) SARS-CoV-2 (PCR) NEGATIVE (NEGATIVE) 10/10/22 10/10/22 10/10/22 Range/Units 14:56 14:19 14:03 WBC (4.0-10.5) x10^3/uL RBC (4.1-5.4) x10^6/uL Hgb (12.0-16.0) g/dL Hct (35-47) % MCV (78-100) fL MCH (26-32) pg MCHC (32-36) g/dL RDW (11.5-14.0) % Plt Count (150-450) x10^3/uL MPV (7.5-11.0) fL Gran % (36.0-66.0) % Immature Gran % (Auto) (0.00-0.4) % Nucleat RBC Rel Count (0.00-0.1) % Eos # (Auto) (0-0.5) x10^3/uL Immature Gran # (Auto) (0.00-0.03) x10^3u/L Absolute Lymphs (auto) (1.0-4.6) x10^3/uL Absolute Monos (auto) (0.0-1.3) x10^3/uL Absolute Nucleated RBC (0.00-0.01) x10^3u/L Lymphocytes % (24.0-44.0) % Monocytes % (0.0-12.0) % Eosinophils % (0.00-5.0) % Basophils % (0.0-0.4) % Absolute Granulocytes (1.4-6.9) x10^3/uL Basophils # (0-0.4) x10^3/uL Sodium 140 (137-145) mmol/L Potassium 3.7 (3.5-5.1) mmol/L Chloride 110 H (98-107) mmol/L Carbon Dioxide 20 L (22-30) mmol/L Anion Gap 13.3 (5-15) MEQ/L BUN 8 (7-17) mg/dL Creatinine 0.65 (0.52-1.04) mg/dL Estimated GFR > 60.0 ML/MIN Glucose 127 H (74-106) mg/dL Lactic Acid 1.8 (0.4-2.0) Calcium 8.6 (8.4-10.2) mg/dL Total Bilirubin 0.20 (0.2-1.3) mg/dL AST 26 (14-36) U/L ALT 22 (0-35) U/L Alkaline Phosphatase 107 (38-126) U/L Troponin I (0.000-0.034) ng/mL Serum Total Protein 7.1 (6.3-8.2) g/dL Albumin 3.8 (3.5-5.0) g/dL Amylase 50 (30-110) U/L Lipase 35 (23-300) U/L Urine Color Yellow (Yellow) Urine Appearance Clear (Clear) Urine pH 6.0 (4.6-8.0) Ur Specific [place] 1.025 (1.005-1.030) Urine Protein Negative (Negative) Urine Glucose (UA) >=1000 A (Negative) mg/dL Urine Ketones Negative (Negative) Urine Blood Negative (Negative) Urine Nitrite Negative (Negative) Urine Bilirubin Negative (Negative) Urine Urobilinogen 0.2 (0.2) mg/dL Ur Leukocyte Esterase Negative (Negative) U Hyaline Cast (Auto) NONE SEEN (0-2) /LPF Urine Microscopic RBC 0-2 (0-5) /HPF Urine Microscopic WBC 0-2 (0-5) /HPF Ur Epithelial Cells Few (None Seen) /HPF Urine Bacteria None Seen (None Seen) /HPF Urine Culture Reflexed NO (NO) Influenza Type A Ag (NEGATIVE) Influenza Type B Ag (NEGATIVE) RSV (PCR) (NEGATIVE) SARS-CoV-2 (PCR) (NEGATIVE) - Progress Progress Note: 10/10/22 18:08 Nursing note and vital signs reviewed No food or housing insecurities noted 10/10/22 18:09 All lab results reviewed and shared w pt CT result reviewed and shared w pt [id number] mcg IV/4mg IV Zofran w mild improvement in pain 10/10/22 18:10 100mg IV Fentanyl w continued improvement in pain Pain/diarrhea most likely due to Linzess Counseled pt/family regarding: lab results, diagnosis, need for follow-up, rad results Medical Desision Making - Diagnostic Testing Radiological Interpretation: Reviewed by me - Risk of complications The pt has a mod risk of morbidity or mortality based on: Need for prescription drug management - Departure Departure Disposition: Home Clinical Impression: Abdominal pain, Diarrhea Condition: Stable Critical Care Time: No Referrals: ALIYA ROMERO [Primary Care Provider] - Follow up/PCP as directed Instructions: Diarrhea and Travelers' Diarrhea, Child (DC), Abdominal pain Additional Instructions: Fluids Bentyl as needed for abdominal pain/cramping Follow up with your family MD in 1-2 days Return to ER for increasing pain or temperature greater than 100.5 Prescriptions: Dicyclomine HCl 20 mg [Bentyl 20 mg] 10 mg PO Q6H PRN PRN #10 tablet PRN Reason: Pain
[2022-10-10 14:28] LABS: Appearance Clear (Clear); Bacteria None Seen /HPF (None Seen); Bilirubin Negative (Negative); Blood Negative (Negative); Epithelial Cells Few /HPF (None Seen); Glucose, Urine >=1000 mg/dL (Negative); Hyaline Casts NONE SEEN /LPF (0-2); Ketones Negative (Negative); Leukocyte Esterase Negative (Negative); Nitrite Negative (Negative); Protein,Urine Dip Negative (Negative); RBC 0-2 /HPF (0-5); Specific Gravity 1.025 (1.005-1.030); Urobilinogen 0.2 mg/dL (0.2); WBC 0-2 /HPF (0-5)
[2022-10-10 14:39] LABS: ADD URINE CULTURE? NO (NO)
[2022-10-10] MEDS ORDERED: Zofran 4 MG/2 ML VIAL ONE (14:47)
[2022-10-10] MEDS ORDERED: Zofran 4 MG/2 ML VIAL IV ONE (14:47)
[2022-10-10] MEDS ORDERED: SUBLIMAZE 100 MCG/2 ML ONE ×2 (14:47→16:14)
[2022-10-10] MEDS ORDERED: SUBLIMAZE 100 MCG/2 ML IV ONE ×2 (14:47→16:07)
[2022-10-10 15:06] LABS: Absolute Neutrophil Ct (ANC) 4.69 x10^3/uL (1.4-6.9); BASOPHIL % 0.3 % (0.0-0.4); Basophil (Absolute #) 0.02 x10^3/uL (0-0.4); Eosinophil % 1.5 % (0.00-5.0); Eosinophil (Absolute #) 0.12 x10^3/uL (0-0.5); Hematocrit 37.3 % (35-47); Hemoglobin 11.7 g/dL (12.0-16.0); IMMATURE GRAN # 0.03 x10^3u/L (0.00-0.03); IMMATURE GRAN % 0.4 % (0.00-0.4); Lymphocyte (Absolute #) 2.57 x10^3/uL (1.0-4.6); Lymphocytes % 32.4 % (24.0-44.0); Mean Cell Volume 84.2 fL (78-100); Mean Corpuscular Hemoglobin 26.4 pg (26-32); Mean Corpuscular Hgb Concent. 31.4 g/dL (32-36); Mean Platelet Volume 9.3 fL (7.5-11.0); Monocytes % 6.3 % (0.0-12.0); Neutrophil % 59.1 % (36.0-66.0); Platelet Count 306 x10^3/uL (150-450); Red Blood Count 4.43 x10^6/uL (4.1-5.4); Red Cell Distribution Width 14.9 % (11.5-14.0); White Blood Count 7.9 x10^3/uL (4.0-10.5)
--- NOTE | 2022-10-10 15:09 | XRAY ---
Indication: Right abdomen pain, nausea, and diarrhea. Multiple contiguous axial images obtained through the abdomen and pelvis without contrast. Comparison: August 16, 2022 Lung bases demonstrate minimal subsegmental atelectasis/scarring. No infiltrate or effusion. Heart not enlarged. Noncontrasted stomach and bowel loops nonobstructed again with normal appendix. Minimal scattered colonic fecal debris throughout, less than before. Stable cholecystectomy and hysterectomy. No free fluid/air. Reading liver, pancreas, spleen, adrenal glands, kidneys, ureters, and bladder are unremarkable for noncontrast exam. Stable minimal aortic calcifications without AAA. Osseous structures intact again with minimal degenerative changes throughout the spine. Impression: Again chronic findings including arteriosclerotic disease and degenerative spondylosis. No new/acute findings on this noncontrast exam.
[2022-10-10 15:19] LABS: ALBUMIN 3.8 g/dL (3.5-5.0); ALKALINE PHOSPHATASE 107 U/L (38-126); AMYLASE 50 U/L (30-110); ANION GAP 13.3 MEQ/L (5-15); BLOOD UREA NITROGEN 8 mg/dL (7-17); CHLORIDE 110 mmol/L (98-107); Calcium 8.6 mg/dL (8.4-10.2); Carbon Dioxide 20 mmol/L (22-30); Creatinine 1 0.65 mg/dL (0.52-1.04); EST GLOMERULAR FILTRATION RATE > 60.0 ML/MIN; Glucose 127 mg/dL (74-106); LIPASE 35 U/L (23-300); Potassium 3.7 mmol/L (3.5-5.1); SGOT/AST 26 U/L (14-36); SGPT/ALT 22 U/L (0-35); SODIUM 140 mmol/L (137-145); Total Protein 7.1 g/dL (6.3-8.2)
[2022-10-10] MEDS ORDERED: Sodium Chloride 0.9% 1000 ML 1,000 ML IV STA (16:13)
[2022-10-10] MEDS ORDERED: Sodium Chloride 0.9% 1000 ML 1,000 ML ONE (16:14)
[2022-10-10 17:00] LABS: INFLUENZA A NEGATIVE (NEGATIVE); INFLUENZA B NEGATIVE (NEGATIVE); RESPIRATORY SYNCTIAL VIRUS NEGATIVE (NEGATIVE); SARS-CoV-2 Xpert Express NEGATIVE (NEGATIVE)
[2022-10-10 17:24] VITALS: BP 108/73; PULSE 84; RESP 16
[2022-10-10 18:12] VITALS: O2SAT 97
== END 2022-10-10 17:28 | disposition home or self-care (01) ==
LOC: ED 12:23
DX: R10.9 Unspecified abdominal pain (principal); R19.7 Diarrhea, unspecified; R11.0 Nausea; E11.9 Type 2 diabetes mellitus without complications; E78.5 Hyperlipidemia, unspecified; I10 Essential (primary) hypertension; Z79.4 Long term (current) use of insulin; Z79.899 Other long term (current) drug therapy; Z72.0 Tobacco use
CPT/HCPCS: 0241U; 36000; 36415; 74176; 80053; 81001; 82150; 83605; 83690; 84484; 85025; 96374; 96376; 99284; J2405; J3010

== ENCOUNTER 2023-08-14 01:05 | Emergency (ER) | payer BC ==
[2023-08-14 01:24] VITALS: RESP 18; TEMP 98.4
[2023-08-14] MEDS ORDERED: NORCO 5/325 MG ONE (01:33)
[2023-08-14] MEDS ORDERED: Rocephin 1000 MG INJ ONE (01:33)
[2023-08-14] MEDS ORDERED: BACTRIM DS TABLET PO ONE (01:33)
--- NOTE | 2023-08-14 01:33 | ERPHSYRPT ---
- History of Present Illness Time Seen by Provider: 08/14/23 01:20 Source: patient Exam Limitations: no limitations Patient Subjective Stated Complaint: bug bite located on L buttock Triage Nursing Assessment: pt ambulated to bed by self, pt alert and oriented x3, general skin pwd, pt presents with bug bite on L buttock that patient noticed on monday, no drainage noted, pt afebrile. Physician History: This is an overweight 53-year-old white female patient who has a history of hyperlipidemia, hypertension, diabetes, gastroesophageal reflux disease and bipolar disorder who is assuming that she had a spider/bug bite on her left buttock while in [facility] this last week. She noticed redness and tenderness to the left buttock 4 days ago. She did not take any antibiotics. She noticed that the redness was expanding and she wanted it evaluated today. She has not had a fever. There is been no drainage from the site. Timing/Duration: day(s) Quality: painful Severity: mild (To moderate) Location: other (Left buttock) Possible Causes: no cause identified (Possible insect/spider bite) Associated Symptoms: denies symptoms Allergies/Adverse Reactions: adhesive tape Allergy (Verified 08/14/23 01:12) Blisters cyclobenzaprine [From Flexeril] Allergy (Verified 08/14/23 01:12) prochlorperazine [From Compazine] Adverse Reaction (Verified 08/14/23 01:12) Difficulty Breathing Home Medications: Doxepin HCl 300 mg PO DAILY 11/14/16 [History] Lisinopril 20 mg [Zestril 20 MG] 20 mg PO DAILY 11/14/16 [History] Venlafaxine HCl [Effexor Xr] 300 mg PO HS 11/14/16 [History] Zolpidem Tartrate 10 mg PO HS PRN PRN 09/18/18 [History] Insulin Degludec [Tresiba] 44 unit SQ DAILY 08/24/19 [History] Quetiapine Fumarate [Seroquel] 300 mg PO QHS 11/19/20 [History] Linaclotide [Linzess] 290 mcg PO DAILY 10/10/22 [History] Hx Tetanus, Diphtheria Vaccination/Date Given: Yes Hx Influenza Vaccination/Date Given: No Hx Pneumococcal Vaccination/Date Given: No Immunizations Up to Date: No Travel Risk - International Travel Have you traveled outside of the country in past 3 weeks: No - Emerging Infectious Disease Are you exhibiting symptoms associated with any current EIDs: No - Review of Systems Constitutional: No Symptoms Eyes: No Symptoms Ears, Nose, & Throat: No Symptoms Respiratory: No Symptoms Cardiac: No Symptoms Abdominal/Gastrointestinal: No Symptoms Musculoskeletal: No Symptoms Skin: Cellulitis (Measuring approximately 8 to 10 cm in its greatest diameter with a central area of deeper redness and induration) Neurological: No Symptoms Psychological: No Symptoms Endocrine: No Symptoms Hematologic/Lymphatic: No Symptoms Immunological/Allergic: No Symptoms All Other Systems: Reviewed and Negative - Past Medical History Pertinent Past Medical History: Yes Neurological History: Other ENT History: No Pertinent History Cardiac History: High Cholesterol, Hypertension Respiratory History: No Pertinent History Endocrine Medical History: Diabetes Type II Musculoskeletal History: Osteoarthritis GI Medical History: Esophageal Disorder, GERD, Gallbladder Disease History: No Pertinent History Psycho-Social History: Bipolar, Depression Female Reproductive Disorders: Endometriosis Other Medical History: headaches, multiple R toe fractures, R carpal tunnel release, B hand reconstruction - Past Surgical History Past Surgical History: Yes Neuro Surgical History: No Pertinent History Cardiac: No Pertinent History Respiratory: No Pertinent History Gastrointestinal: Cholecystectomy Genitourinary: No Pertinent History Musculoskeletal: Orthopedic Surgery Female Surgical History: Hysterectomy Other Surgical History: r foot,carpal tunnel,rt and lt wrist ligament repair, R shoulder - Social History Smoking Status: Current every day smoker How long have you smoked: 40 yrs Exposure to second hand smoke: Yes Drug Use: none Patient Lives Alone: No - Social Determinants of Health Will the patient participate in the screening: Yes Do you worry about a steady place to live?: No Do you have any problems with any of the following?: No known problems In the past 12 months,have you had to go without utilities?: No Transportation Issues: No Has anyone in your support network made you feel unsafe?: No Have you or anyone in your house had to go without enough: No - Nursing Vital Signs Nursing Vital Signs: Initial Vital Signs Temperature 98.4 F 08/14/23 01:16 Pulse Rate 64 08/14/23 01:16 Respiratory Rate 18 08/14/23 01:16 Blood Pressure 147/112 08/14/23 01:16 O2 Sat by Pulse Oximetry 100 08/14/23 01:16 Pain Scale Pain Intensity 8 - Physical Exam General Appearance: no apparent distress, alert, anxiety, obese Eye Exam: PERRL/EOMI, eyes nml inspection Ears, Nose, Throat Exam: normal ENT inspection, moist mucous membranes Neck Exam: normal inspection, non-tender, supple, full range of motion Respiratory Exam: airway intact, No chest tenderness, No respiratory distress Gastrointestinal/Abdomen Exam: soft, normal bowel sounds, No tenderness Pelvic Exam: not done Rectal Exam: not done Back Exam: normal inspection, normal range of motion, No CVA tenderness, No vertebral tenderness Extremity Exam: normal inspection, normal range of motion, pelvis stable Neurologic Exam: alert, 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, 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, 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, nml cerebellar function, nml station & gait, sensation nml Skin Exam: other (Approximately 8 to 10 cm in diameter left buttock cellulitis with a central deeper red color 2.5 cm area of induration without abscess or expressible fluid present) Lymphatic Exam: No adenopathy SpO2 Interpretation: normal SpO2: 100 O2 Delivery: Room Air Ordered Tests: Medication Summary Generic Name Dose Route Start Last Admin Trade Name Aquiles PRN Reason Stop Dose Admin Hydrocodone Bitart/Acetaminophen 2 tab 08/14/23 01:27 Hydrocodone/Apap 5/325 1 Tab Tablet PO 08/14/23 01:28 SENT HOME W/ PATIENT ONE Ceftriaxone Sodium 1,000 mg 08/14/23 01:27 Ceftriaxone Sodium 1000 Mg Inj Vial IM 08/14/23 01:28 STAT ONE Trimethoprim/Sulfamethoxazole 1 tab 08/14/23 01:26 Smz/Tmp Ds Tablet 1 Tablet PO 08/14/23 01:27 STAT ONE - Progress Progress: unchanged Progress Note: 08/14/23 01:32 My medical decision making and the assignment of low complexity to this patient's medical issue today is based on review of the patient's past medical history, review of the patient's medication list, review of patient drug allergy list, history present illness and physical findings on examination. The workup in this patient does not require any laboratory radiographic studies. This patient does have a history of diabetes. There is no evidence of any subcutaneous abscess at this time. There is cellulitis with a central area of indurated tissue. There is no expressible pus. However because of her history of diabetes I want her to follow-up in the emergency department in the next 12 to 24 hours for reassessment. Counseled pt/family regarding: diagnosis, need for follow-up Medical Desision Making - Diagnostic Testing Diagnostic test were ordered, analyzed, and reviewed by me: No - Risk of complications The pt has a mod risk of morbidity or mortality based on: Need for prescription drug management - Departure Departure Disposition: Home Clinical Impression: Cellulitis of left buttock Condition: Stable Critical Care Time: No Referrals: ALIYA ROMERO [Primary Care Provider] - Follow up/PCP as directed Additional Instructions: Keep the area of cellulitis clean daily with soap and water. Do not apply lotions or ointments or creams to this area. Take your antibiotics as prescribed. If there are no contraindications, after taking your hydrocodone tablets, use Tylenol and ibuprofen for pain and fever control. Return to the emergency department as discussed later this evening for reevaluation. Prescriptions: Smz/Tmp Ds Tablet [Bactrim Ds Tablet] 1 udtab PO BID #14 tablet
[2023-08-14] MEDS: Rocephin 1000 MG INJ IM ONE (01:46)
[2023-08-14] MEDS: NORCO 5/325 MG PO ONE (01:46)
[2023-08-14] MEDS: BACTRIM DS TABLET PO ONE (01:46)
[2023-08-14 02:08] VITALS: BP 125/91; PULSE 79; O2SAT 99
== END 2023-08-14 02:08 | disposition home or self-care (01) ==
LOC: ED 01:05
DX: L03.317 Cellulitis of buttock (principal); E78.5 Hyperlipidemia, unspecified; I10 Essential (primary) hypertension; E11.9 Type 2 diabetes mellitus without complications; Z79.4 Long term (current) use of insulin; Z79.899 Other long term (current) drug therapy; Z72.0 Tobacco use
CPT/HCPCS: 96372; 99283; J0696; A9270-GY

== ENCOUNTER 2023-11-08 22:18 | Emergency (ER) | payer BC ==
[2023-11-08 22:45] VITALS: TEMP 99
[2023-11-08] MEDS ORDERED: TORAdol 30 mg Injection ONE (22:46)
[2023-11-08] MEDS: TORAdol 30 mg Injection IM ONE (22:50)
[2023-11-08 23:16] VITALS: BP 143/91; PULSE 94; RESP 18; O2SAT 96
--- NOTE | 2023-11-08 23:31 | ERPHSYRPT ---
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 Patient states she fell on Monday. 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 Client lost balance she fell along with patient. Patient injured her shoulder and her wrist. Patient states the pain is gotten worse so she decided come to our ED. No BHT or LOC no neck pain. Cervical spine cleared clinically. Pain described as an ache that is localized. No radiation. Pain worse with palpation to the shoulder and to the wrist. Pain improved with rest. She voices no other complaints or concerns at this time. Portions of this note were created with voice recognition technology. There may be grammatical, spelling, punctuation or sound alike errors Timing/Duration: day(s) (2 days ago) Severity: moderate Modifying Factors: Improves With: movement Associated Symptoms: denies symptoms Allergies/Adverse Reactions: adhesive tape Allergy (Verified 11/08/23 22:45) Blisters cyclobenzaprine [From Flexeril] Allergy (Verified 11/08/23 22:45) prochlorperazine [From Compazine] Adverse Reaction (Verified 11/08/23 22:45) Difficulty Breathing Home Medications: Doxepin HCl 300 mg PO DAILY 11/14/16 [History] Lisinopril 20 mg [Zestril 20 MG] 40 mg PO DAILY 11/14/16 [History] Venlafaxine HCl [Effexor Xr] 300 mg PO HS 11/14/16 [History] Zolpidem Tartrate 10 mg PO HS PRN PRN 09/18/18 [History] Insulin Degludec [Tresiba] 44 unit SQ DAILY 08/24/19 [History] Quetiapine Fumarate [Seroquel] 300 mg PO QHS 11/19/20 [History] Linaclotide [Linzess] 290 mcg PO DAILY 10/10/22 [History] Atorvastatin Calcium 20 mg PO DAILY 11/08/23 [History] Carisoprodol 350 mg [Soma 350 mg] 350 mg PO BID PRN 11/08/23 [History] Tirzepatide [Mounjaro] 12.5 mg SQ WEEKLY 11/08/23 [History] Hx Tetanus, Diphtheria Vaccination/Date Given: Yes Hx Influenza Vaccination/Date Given: No Hx Pneumococcal Vaccination/Date Given: No Travel Risk - International Travel Have you traveled outside of the country in past 3 weeks: No - Emerging Infectious Disease Are you exhibiting symptoms associated with any current EIDs: No - Review of Systems Constitutional: No Symptoms, No Fever, No Chills Eyes: No Symptoms Ears, Nose, & Throat: No Symptoms Respiratory: No Symptoms, No Cough, No Dyspnea Cardiac: No Symptoms, No Chest Pain, No Edema, No Syncope Abdominal/Gastrointestinal: No Symptoms, No Abdominal Pain, No Nausea, No Vomiting, No Diarrhea Genitourinary Symptoms: No Symptoms, No Dysuria Musculoskeletal: No Symptoms, No Back Pain, No Neck Pain Skin: No Symptoms, No Rash Neurological: No Symptoms, No Dizziness, No Focal Weakness, No Sensory Changes Psychological: No Symptoms Endocrine: No Symptoms Hematologic/Lymphatic: No Symptoms Immunological/Allergic: No Symptoms All Other Systems: Reviewed and Negative - Past Medical History Pertinent Past Medical History: Yes Neurological History: Other ENT History: No Pertinent History Cardiac History: High Cholesterol, Hypertension Respiratory History: No Pertinent History Endocrine Medical History: Diabetes Type II Musculoskeletal History: Osteoarthritis GI Medical History: Esophageal Disorder, GERD, Gallbladder Disease History: No Pertinent History Psycho-Social History: Bipolar, Depression Female Reproductive Disorders: Endometriosis Other Medical History: headaches, multiple R toe fractures, R carpal tunnel release, B hand reconstruction - Past Surgical History Past Surgical History: Yes Neuro Surgical History: No Pertinent History Cardiac: No Pertinent History Respiratory: No Pertinent History Gastrointestinal: Cholecystectomy Genitourinary: No Pertinent History Musculoskeletal: Orthopedic Surgery Female Surgical History: Hysterectomy Other Surgical History: r foot,carpal tunnel,rt and lt wrist ligament repair, R shoulder - Social History Smoking Status: Current every day smoker How long have you smoked: 40 yrs Exposure to second hand smoke: Yes Drug Use: none Patient Lives Alone: No - Social Determinants of Health Will the patient participate in the screening: Yes Do you worry about a steady place to live?: No Do you have any problems with any of the following?: No known problems In the past 12 months,have you had to go without utilities?: No Transportation Issues: No Has anyone in your support network made you feel unsafe?: No Have you or anyone in your house had to go without enough: No - Nursing Vital Signs Nursing Vital Signs: Initial Vital Signs Temperature 99.0 F 11/08/23 22:35 Pulse Rate 103 H 11/08/23 22:35 Blood Pressure 152/107 11/08/23 22:35 O2 Sat by Pulse Oximetry 97 11/08/23 22:35 Pain Scale Pain Intensity 8 - Physical Exam General Appearance: no apparent distress, alert Eye Exam: PERRL/EOMI, eyes nml inspection Ears, Nose, Throat Exam: normal ENT inspection, pharynx normal, moist mucous membranes Neck Exam: normal inspection, non-tender, supple, full range of motion Respiratory Exam: normal breath sounds, lungs clear, airway intact, No respiratory distress Cardiovascular Exam: regular rate/rhythm, normal heart sounds, normal peripheral pulses Gastrointestinal/Abdomen Exam: soft, normal bowel sounds, No tenderness, No mass Back Exam: normal inspection, normal range of motion, No CVA tenderness, No vertebral tenderness Extremity Exam: normal inspection, normal range of motion, pelvis stable, other (Tenderness to palpation along the anterior lateral aspect of the right shoulder. Overlying soft tissue intact. Right wrist shows tenderness to palpation along the ulnar side as well. Overlying soft tissue intact. No open or draining lesions. The involved upper extremities neurovascular tact dis) Neurologic Exam: alert, 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, cooperative, normal mood/affect, sensation nml, No motor deficits Skin Exam: normal color, warm, dry, No rash Lymphatic Exam: No adenopathy SpO2 Interpretation: normal SpO2: 96 O2 Delivery: Room Air - Course Nursing assessment & vital signs reviewed: Yes - Radiology Exams Wrist X-ray Interpretation: Interpreted by me (Intact hardware otherwise no fracture or dislocation.) Shoulder X-ray Interpretation: Interpreted by me (No fracture dislocations.) Ordered Tests: Active Orders 24 hr Category Date Time Status SHOULDER Stat Exams 11/08/23 22:43 Taken WRIST (MIN 3 VIEWS) Stat Exams 11/08/23 22:44 Taken Medication Summary Generic Name Dose Route Start Last Admin Trade Name Aquiles PRN Reason Stop Dose Admin Hydrocodone Bitart/Acetaminophen 4 tab 11/08/23 23:34 Hydrocodone/Apap 5/325 1 Tab Tablet PO 11/13/23 23:33 Q4H PRN PRN PAIN Discontinued Medications Generic Name Dose Route Start Last Admin Trade Name Aquiles PRN Reason Stop Dose Admin Ketorolac Tromethamine 30 mg 11/08/23 22:44 11/08/23 22:50 Ketorolac Tromethamine 30 Mg/Ml Inj IM 11/08/23 22:45 30 mg STAT ONE Administration Ketorolac Tromethamine Confirm 11/08/23 22:46 Ketorolac Tromethamine 30 Mg/Ml Inj Administered 11/08/23 22:47 Dose 30 mg .ROUTE .[employer] ONE - Progress Progress: improved Progress Note: 53-year-old female status post fall. Patient complains of pain to her right rosita ulder right wrist. Physical exam reveals tenderness of the right shoulder and tenderness at the ulnar aspect right wrist. Overlying soft tissue intact. Extremity neurovascular tact distally compartments are soft cap refill less than 2 seconds. X-rays negative for acute pathology. Patient placed in a right upper extremity sling. IM Toradol administered. A referral to orthopedic clinic provided. Patient sent home with 4 Milladore pills. A prescription for the same forwarded to patient's pharmacy. Patient feels comfortable states ready for discharge. She voices no other complaints or concerns at this time. Portions of this note were created with voice recognition technology. There may be grammatical, spelling, punctuation or sound alike errors Complexity of problem addressed is moderate acute complicated. No critical care time. Complex of data reviewed and analyzed is moderate. Dr. Ann independently reviewed the x-rays of the right shoulder and right wrist. Risk of complication at or risk of morbidity/mortality of patient management is moderate. A prescription for Milladore forwarded to patient's pharmacy. Vital stable. Time spent to discharge patient approximately 15 minutes. Plan of care established via shared decision making. No social determinants of health present to impede follow-up. Portions of this note were created with voice recognition technology. There may be grammatical, spelling, punctuation or sound alike errors Patient referred to the orthopedic clinic for follow-up. 11/08/23 23:37 11/08/23 23:40 Counseled pt/family regarding: diagnosis, need for follow-up, rad results - Departure Departure Disposition: Home Clinical Impression: Shoulder strain, Wrist sprain, Fall Condition: Stable Critical Care Time: No Referrals: ALIYA ROMERO [Primary Care Provider] - Follow up/PCP as directed Additional Instructions: Discharge/Care Plan MATHIEU MANCERA was seen on 11/08/23 in the Emergency Room. The patient was counseled regarding Diagnosis,Lab results, Imaging studies, need for follow up and when to return to the Emergency Room. Prescriptions given: Discharge Note I have spoken with the patient and/or caregivers. I have explained the patient's condition, diagnosis and treatment plan based on the information available to me at this time. I have answered the patient's and/or caregiver's questions and addressed any concerns. The patient and/or caregivers have as good understanding of the patient's diagnosis, condition and treatment plan as can be expected at this point. The vital signs have been stable. The patient's condition is stable and appropriate for discharge from the emergency department. The patient will pursue further outpatient evaluation with the primary care physician or other designated or consulting physician as outlined in the discharge instructions. The patient and/or caregivers are agreeable to this plan of care and follow-up instructions have been explained in detail. The patient and/or caregivers have received these instruction. The patient/and or caregivers are aware that any significant change in condition or worsening of symptoms should prompt an immediate return to this or the closest emergency department or call 911. Prescriptions: Hydrocodone/APAP 5/325 [Milladore 5/325 mg] 1 each PO Q6H PRN PRN #10 tablet MDD 4 PRN Reason: Pain Outpatient Orders: Ortho Referral Time Frame: 1 Day, Facility: [facility], Location: ORTHO CLINIC
[2023-11-08] MEDS ORDERED: NORCO 5/325 MG ONE (23:39)
[2023-11-08] MEDS: NORCO 5/325 MG PO PRN (23:40)
--- NOTE | 2023-11-09 09:12 | XRAY ---
Indication: Pain following injury. Comparison: June 19, 2022 3 view right shoulder unchanged again demonstrating osteopenia and partial resection distal clavicle. No new/acute bony, articular, or soft tissue abnormalities
--- NOTE | 2023-11-09 09:14 | XRAY ---
Indication: Pain following fall. Comparison: None 3 view right wrist demonstrates osteopenia, moderate 1st/2nd carpometacarpal degenerative changes with heterotopic ossification, radiocarpal joint space narrowing, mild degenerative changes all visualized IP joints, old distal radial fracture with intact fixation plate/screws, and orthopedic buttons base 1st/2nd carpals. No other bony, articular, or soft tissue abnormalities. Impression: Nonacute right wrist with chronic features.
== END 2023-11-08 23:53 | disposition home or self-care (01) ==
LOC: ED 22:18
DX: S46.911A Strain of unspecified muscle, fascia and tendon at shoulder and upper arm level, right arm, initial encounter (principal); S63.501A Unspecified sprain of right wrist, initial encounter; W03.XXXA Other fall on same level due to collision with another person, initial encounter; Y93.F9 Activity, other caregiving; Y99.0 Civilian activity done for income or pay; E78.5 Hyperlipidemia, unspecified; I10 Essential (primary) hypertension; E11.9 Type 2 diabetes mellitus without complications; Z79.891 Long term (current) use of opiate analgesic; Z79.4 Long term (current) use of insulin; Z79.85 Long-term (current) use of injectable non-insulin antidiabetic drugs; Z79.899 Other long term (current) drug therapy; Z72.0 Tobacco use
CPT/HCPCS: 73030; 73110; 96372; 99283; J1885; A9270-GY

== ENCOUNTER 2024-01-26 23:01 | Emergency (ER) | payer BC ==
--- NOTE | 2024-01-26 23:40 | ERPHSYRPT ---
- History of Present Illness Time Seen by Provider: 01/26/24 23:40 Source: patient, family Exam Limitations: no limitations Physician History: This is a right handed 53-year-old white female patient who was at home 2 days ago (01/24/2024) and was in the kitchen and did not realize the floor was wet and she slipped and fell onto her right shoulder. She felt up "pop" and the pain has not improved despite using ibuprofen. At 8:00 PM prior to arrival this evening to the emergency department, she took 800 mg of ibuprofen. Patient is a daily smoker of tobacco. Patient has a history of hypertension, insulin- dependent diabetes, hyperlipidemia, depression, gastroesophageal reflux disease and bipolar disorder. Occurred: days ago (2) Method of Injury: fell Quality: constant, aching, sharpness Severity of Pain-Max: moderate Severity of Pain-Current: moderate Extremities Pain Location: shoulder: right Modifying Factors: Improves With: movement Associated Symptoms: none Allergies/Adverse Reactions: adhesive tape Allergy (Verified 01/26/24 23:53) Blisters cyclobenzaprine [From Flexeril] Allergy (Unverified 01/26/24 23:53) prochlorperazine [From Compazine] Adverse Reaction (Verified 01/26/24 23:53) Difficulty Breathing Home Medications: Doxepin HCl 300 mg PO DAILY 11/14/16 [History] Lisinopril 20 mg [Zestril 20 MG] 40 mg PO DAILY 11/14/16 [History] Venlafaxine HCl [Effexor Xr] 300 mg PO HS 11/14/16 [History] Zolpidem Tartrate 10 mg PO HS PRN PRN 09/18/18 [History] Insulin Degludec [Tresiba] 44 unit SQ DAILY 08/24/19 [History] Quetiapine Fumarate [Seroquel] 300 mg PO QHS 11/19/20 [History] Linaclotide [Linzess] 290 mcg PO DAILY 10/10/22 [History] Atorvastatin Calcium 20 mg PO DAILY 11/08/23 [History] Carisoprodol 350 mg [Soma 350 mg] 350 mg PO BID PRN 11/08/23 [History] Tirzepatide [Mounjaro] 12.5 mg SQ WEEKLY 11/08/23 [History] Hx Tetanus, Diphtheria Vaccination/Date Given: Yes Hx Influenza Vaccination/Date Given: No Hx Pneumococcal Vaccination/Date Given: No Travel Risk - International Travel Have you traveled outside of the country in past 3 weeks: No - Emerging Infectious Disease Are you exhibiting symptoms associated with any current EIDs: No - Review of Systems Constitutional: No Symptoms Eyes: No Symptoms Ears, Nose, & Throat: No Symptoms Respiratory: No Symptoms Cardiac: No Symptoms Abdominal/Gastrointestinal: No Symptoms Genitourinary Symptoms: No Symptoms Musculoskeletal: Fall, Injury (Right shoulder) Skin: No Symptoms Neurological: No Symptoms Psychological: No Symptoms Endocrine: No Symptoms Hematologic/Lymphatic: No Symptoms Immunological/Allergic: No Symptoms All Other Systems: Reviewed and Negative - Past Medical History Pertinent Past Medical History: Yes Neurological History: Other ENT History: No Pertinent History Cardiac History: High Cholesterol, Hypertension Respiratory History: No Pertinent History Endocrine Medical History: Diabetes Type II Musculoskeletal History: Osteoarthritis GI Medical History: Esophageal Disorder, GERD, Gallbladder Disease History: No Pertinent History Psycho-Social History: Bipolar, Depression Female Reproductive Disorders: Endometriosis Other Medical History: headaches, multiple R toe fractures, R carpal tunnel release, B hand reconstruction - Past Surgical History Past Surgical History: Yes Neuro Surgical History: No Pertinent History Cardiac: No Pertinent History Respiratory: No Pertinent History Gastrointestinal: Cholecystectomy Genitourinary: No Pertinent History Musculoskeletal: Orthopedic Surgery Female Surgical History: Hysterectomy Other Surgical History: r foot,carpal tunnel,rt and lt wrist ligament repair, R shoulder - Social History Smoking Status: Current every day smoker How long have you smoked: 40 yrs Exposure to second hand smoke: Yes Drug Use: none Patient Lives Alone: No - Social Determinants of Health Will the patient participate in the screening: Yes Do you worry about a steady place to live?: No In the past 12 months,have you had to go without utilities?: No Transportation Issues: No Has anyone in your support network made you feel unsafe?: No Have you or anyone in your house had to go without enough: No - Nursing Vital Signs Nursing Vital Signs: Initial Vital Signs Temperature 97.8 F 01/26/24 23:44 Pulse Rate 100 H 01/26/24 23:44 Respiratory Rate 18 01/26/24 23:44 Blood Pressure 154/104 01/26/24 23:44 O2 Sat by Pulse Oximetry 95 01/26/24 23:44 Pain Scale Pain Intensity 8 - Physical Exam General Appearance: no apparent distress, alert Eyes, Ears, Nose, Throat Exam: normal ENT inspection, moist mucous membranes Neck Exam: normal inspection, non-tender, supple, full range of motion Cardiovascular/Respiratory Exam: chest non-tender, no respiratory distress Abdominal Exam: non-tender Back Exam: normal inspection, normal range of motion, No CVA tenderness, No vertebral tenderness Shoulder Exam: normal inspection, normal ROM, bone tenderness, soft tissue tenderness, No deformity Elbow/Forearm Exam: normal inspection, non-tender, no evidence of injury, normal ROM Wrist Exam: normal inspection, non-tender, no evidence of injury, normal ROM Hand Exam: normal inspection, non-tender, no evidence of injury, normal ROM Neuro/Tendon Exam: normal sensation, normal motor functions, normal tendon functions, responds to pain, no evidence tendon injury 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, 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, cooperative Skin Exam: normal color, warm, dry SpO2 Interpretation: normal O2 Delivery: Room Air - Course Nursing assessment & vital signs reviewed: Yes Ordered Tests: Active Orders 24 hr Category Date Time Status Sling Application STAT Care 01/27/24 01:36 Active CLAVICLE Stat Exams 01/26/24 23:58 Taken HUMERUS Stat Exams 01/26/24 23:58 Taken SHOULDER Stat Exams 01/26/24 23:58 Taken Medication Summary Discontinued Medications Generic Name Dose Route Start Last Admin Trade Name Michaelq PRN Reason Stop Dose Admin Hydrocodone Bitart/Acetaminophen 1 tab 01/27/24 01:35 Hydrocodone/Apap 5/325 1 Tab Tablet PO 01/27/24 01:36 STAT ONE Orphenadrine Citrate 100 mg 01/27/24 01:35 Orphenadrine Citrate 100 Mg Er Tab PO 01/27/24 01:36 STAT ONE - Progress Progress: improved, pain not gone completely Progress Note: 01/27/24 00:53 My medical decision making of the assignment of low complexity to this patient's medical issue today is based on review of the patient's past medical history, review the patient's medication list, reviewed patient drug allergy list, history present illness and physical findings on examination. The workup includes x-ray of the patient's right shoulder, right humerus and right clavicle. Differential diagnosis includes but is not limited to fracture/dislocation of above bones and joints, contusion right humerus/right shoulder 01/27/24 01:40 I interpreted the preliminary report of the following 3 x-rays. The findings were discussed with the patient. She is aware these are preliminary reports only: X-ray of the right shoulder shows no acute fracture or dislocation. X-ray of the right clavicle shows no acute fracture or dislocation. X-ray of the right humerus shows no acute fracture or dislocation. Counseled pt/family regarding: diagnosis, need for follow-up, rad results Medical Desision Making - Diagnostic Testing Diagnostic test were ordered, analyzed, and reviewed by me: Yes Radiological Interpretation: Interpreted by me - Risk of complications Low Risk: Low risk of morbidity from additional dx testing or treatment - Departure Departure Disposition: Home Clinical Impression: Contusion of right shoulder, Fall with no significant injury Condition: Stable Critical Care Time: No Referrals: ALIYA ROMERO [Primary Care Provider] - Follow up/PCP as directed Additional Instructions: Ice pack to right shoulder tender areas 3-4 times a day for the next 3 to 4 days. Wear the right sling for comfort. Call your primary care provider on 01/29/2024 to make arrangement for follow-up appointment to be seen in the next 3 to 5 days. Another option would be to proceed to the [facility] orthopedic clinic on 01/29/2024 between the hours of 8 and 10 for further evaluation management. This is a walk-in clinic and you do not need to have a follow-up appointment made
[2024-01-26 23:52] VITALS: RESP 18; TEMP 97.8; O2SAT 95
[2024-01-27 01:03] VITALS: BP 141/95; PULSE 82
[2024-01-27] MEDS ORDERED: Norflex 100 MG Tablet PO ONE (01:43)
[2024-01-27] MEDS ORDERED: NORCO 5/325 MG ONE ×2 (01:44→01:50)
[2024-01-27] MEDS: Norflex 100 MG Tablet PO ONE (01:44)
[2024-01-27] MEDS: NORCO 5/325 MG PO ONE ×2 (01:44→01:51)
--- NOTE | 2024-01-27 08:21 | XRAY ---
Indication: Pain following fall. Comparison: November 08, 2023 3 view right shoulder unchanged again demonstrating osteopenia, partial resection distal clavicle, and tiny heterotopic ossification inferior tip scapula. No new/acute bony, articular, or soft tissue abnormalities.
--- NOTE | 2024-01-27 08:23 | XRAY ---
Indication: Pain following fall. Comparison: None 2 view right clavicle demonstrates osteopenia and partial resection distal clavicle. No acute bony, articular, or soft tissue abnormalities.
--- NOTE | 2024-01-27 08:23 | XRAY ---
Indication: Pain following fall. Comparison: None 2 view right humerus demonstrates osteopenia and partial resection distal clavicle. No acute bony, articular, or soft tissue abnormalities.
== END 2024-01-27 01:59 | disposition home or self-care (01) ==
LOC: ED 23:01
DX: S40.011A Contusion of right shoulder, initial encounter (principal); M25.511 Pain in right shoulder; W01.0XXA Fall on same level from slipping, tripping and stumbling without subsequent striking against object, initial encounter
CPT/HCPCS: 73000; 73030; 73060; 99283; A9270-GY

== ENCOUNTER 2024-04-20 16:54 | Emergency (ER) | payer BC ==
[2024-04-20 17:08] VITALS: TEMP 98.8
--- NOTE | 2024-04-20 17:19 | ERPHSYRPT ---
- History of Present Illness Historian: patient Patient Subjective Stated Complaint: C/O right flank and abdominal pain. Denies N/V or diarrhea. Triage Nursing Assessment: Patient ambulated back to ER. She is alert and oriented. No SOB. SKin tone normal. Timing/Duration: today Activities at Onset: none Quality: cramping Abdominal Pain Onset Location: flank Pain Radiation: RLQ Severity of Pain-Max: moderate Severity of Pain-Current: moderate Modifying Factors: Improves With: nothing Associated Symptoms: denies symptoms Previous symptoms: same symptoms as today Body Map: 1 - abdominal pain started 2 - radiation of abdominal pain Hx Tetanus, Diphtheria Vaccination/Date Given: Yes Hx Influenza Vaccination/Date Given: No Hx Pneumococcal Vaccination/Date Given: No Immunizations Up to Date: Yes <DENNIS DAIGLE - Last Filed: 04/20/24 18:33> <JALYN MEYERS - Last Filed: 04/20/24 19:34> - History of Present Illness Time Seen by Provider: 04/20/24 17:14 Physician History: Patient is 53-year-old female with significant past medical history of type 2 diabetes melitis, hypertension, history of renal stone in the past started having a right side flank pain which was radiating to the front and to the right inguinal areaToday few hours ago. She also has a cramping abdominal pain. She denies any fever chills nausea or vomiting. She denies any blood in the stool or urine. (DENNIS DAIGLE) Allergies/Adverse Reactions: adhesive tape Allergy (Verified 04/20/24 16:59) Blisters prochlorperazine [From Compazine] Adverse Reaction (Verified 04/20/24 16:59) Difficulty Breathing Home Medications: Doxepin HCl 300 mg PO DAILY 11/14/16 [History] Lisinopril 20 mg [Zestril 20 MG] 40 mg PO DAILY 11/14/16 [History] Venlafaxine HCl [Effexor Xr] 300 mg PO HS 11/14/16 [History] Zolpidem Tartrate 10 mg PO HS PRN PRN 09/18/18 [History] Insulin Degludec [Tresiba] 44 unit SQ DAILY 08/24/19 [History] Quetiapine Fumarate [Seroquel] 300 mg PO QHS 11/19/20 [History] Linaclotide [Linzess] 290 mcg PO DAILY 10/10/22 [History] Atorvastatin Calcium 20 mg PO DAILY 11/08/23 [History] Carisoprodol 350 mg [Soma 350 mg] 350 mg PO BID PRN 11/08/23 [History] Tirzepatide [Mounjaro] 12.5 mg SQ WEEKLY 11/08/23 [History] Travel Risk - International Travel Have you traveled outside of the country in past 3 weeks: No - Emerging Infectious Disease Are you exhibiting symptoms associated with any current EIDs: Yes Symptoms: Abdominal Pain <PILO,DENNIS - Last Filed: 04/20/24 18:33> - Review of Systems Constitutional: No Fever, No Chills Eyes: No Symptoms Ears, Nose, & Throat: No Symptoms Respiratory: No Cough, No Dyspnea Cardiac: No Chest Pain, No Edema, No Syncope Abdominal/Gastrointestinal: Abdominal Pain, No Nausea, No Vomiting, No Diarrhea Genitourinary Symptoms: Flank Pain, No Dysuria Musculoskeletal: No Back Pain, No Neck Pain Skin: No Rash Neurological: No Dizziness, No Focal Weakness, No Sensory Changes Psychological: No Symptoms Endocrine: No Symptoms All Other Systems: Reviewed and Negative <PILO,DENNIS - Last Filed: 04/20/24 18:33> - Past Medical History Pertinent Past Medical History: Yes Neurological History: Other ENT History: No Pertinent History Cardiac History: High Cholesterol, Hypertension Respiratory History: No Pertinent History Endocrine Medical History: Diabetes Type II Musculoskeletal History: Fractures, Osteoarthritis GI Medical History: Esophageal Disorder, GERD, Gallbladder Disease History: No Pertinent History Psycho-Social History: Bipolar, Depression Female Reproductive Disorders: Endometriosis Other Medical History: headaches, multiple R toe fractures, R carpal tunnel release, B hand reconstruction, right hand fracture - Past Surgical History Past Surgical History: Yes Neuro Surgical History: No Pertinent History Cardiac: No Pertinent History Respiratory: No Pertinent History Gastrointestinal: Cholecystectomy Genitourinary: No Pertinent History Musculoskeletal: Orthopedic Surgery Female Surgical History: Hysterectomy Other Surgical History: r foot,carpal tunnel,rt and lt wrist ligament repair, R shoulder - Social History Smoking Status: Current every day smoker How long have you smoked: 30 years Exposure to second hand smoke: No Drug Use: none - Social Determinants of Health Will the patient participate in the screening: Yes Do you worry about a steady place to live?: No Do you have any problems with any of the following?: No known problems In the past 12 months,have you had to go without utilities?: No Transportation Issues: No Has anyone in your support network made you feel unsafe?: No Have you or anyone in your house had to go w/o enough food: No <PILO - Last Filed: 04/20/24 18:33> - Physical Exam General Appearance: no apparent distress, alert Eye Exam: PERRL/EOMI, eyes nml inspection Ears, Nose, Throat Exam: normal ENT inspection, pharynx normal, moist mucous membranes Neck Exam: normal inspection, non-tender, supple, full range of motion Respiratory Exam: normal breath sounds, lungs clear, No respiratory distress Cardiovascular Exam: regular rate/rhythm, normal heart sounds Gastrointestinal/Abdomen Exam: soft, tenderness (right side of abdomen), No mass Back Exam: normal inspection, normal range of motion, No CVA tenderness, No vertebral tenderness Extremity Exam: normal inspection, normal range of motion, pelvis stable Neurologic Exam: alert, 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, cooperative, normal mood/affect, nml cerebellar function, sensation nml, No motor deficits Skin Exam: normal color, warm, dry SpO2: 95 <PILO - Last Filed: 04/20/24 18:33> - Nursing Vital Signs Nursing Vital Signs: Initial Vital Signs Temperature 98.8 F 04/20/24 17:00 Pulse Rate 110 H 04/20/24 17:00 Respiratory Rate 20 04/20/24 17:00 Blood Pressure 136/87 04/20/24 17:00 O2 Sat by Pulse Oximetry 97 04/20/24 17:00 Pain Scale Pain Intensity 4 - Course Nursing assessment & vital signs reviewed: Yes - CT Exams Abdomen/Pelvis CT Interpretation: Tele-radiologist Report <PILO - Last Filed: 04/20/24 18:33> Ordered Tests: Active Orders 24 hr Category Date Time Status ABDOMEN AND PELVIS W CONTRAST [CT] Stat Exams 04/20/24 17:12 Completed AMYLASE Stat Lab 04/20/24 17:39 Completed CBC W DIFF Stat Lab 04/20/24 17:39 Completed CMP Stat Lab 04/20/24 17:39 Completed LIPASE Stat Lab 04/20/24 17:39 Completed UA W/RFX UR CULTURE Stat Lab 04/20/24 18:51 Received Medication Summary Discontinued Medications Generic Name Dose Route Start Last Admin Trade Name Aquiles PRN Reason Stop Dose Admin Sodium Chloride 1,000 mls @ 999 mls/hr 04/20/24 17:12 04/20/24 18:38 Sodium Chloride 0.9% 1000 Ml IV 04/20/24 18:12 Infused .Q1H1M STA Infusion Sodium Chloride Confirm 04/20/24 17:21 Sodium Chloride 0.9% 1000 Ml Administered 04/20/24 17:22 Dose 1,000 mls @ ud .ROUTE .STK-MED ONE Ketorolac Tromethamine 30 mg 04/20/24 17:12 04/20/24 17:37 Ketorolac Tromethamine 30 Mg/Ml Inj IV 04/20/24 17:13 Not Given STAT ONE Ketorolac Tromethamine Confirm 04/20/24 17:21 Ketorolac Tromethamine 30 Mg/Ml Inj Administered 04/20/24 17:22 Dose 30 mg .ROUTE .STK-MED ONE Morphine Sulfate 4 mg 04/20/24 17:39 04/20/24 17:49 Morphine Sulfate 4 Mg/Ml Injection IV 04/20/24 17:40 4 mg STAT ONE Administration Morphine Sulfate Confirm 04/20/24 17:48 Morphine Sulfate 4 Mg/Ml Injection Administered 04/20/24 17:49 Dose 4 mg .ROUTE .STK-MED ONE Ondansetron HCl 4 mg 04/20/24 17:12 04/20/24 17:35 Ondansetron Hcl 4 Mg/2 Ml Vial IV 04/20/24 17:13 4 mg STAT ONE Administration Ondansetron HCl Confirm 04/20/24 17:21 Ondansetron Hcl 4 Mg/2 Ml Vial Administered 04/20/24 17:22 Dose 4 mg .ROUTE .STK-MED ONE Lab/Rad Data: Laboratory Result Diagrams 04/20/24 17:39 04/20/24 17:39 Laboratory Results 04/20/24 04/20/24 Range/Units 17:39 17:39 WBC 8.4 (3.98-10.04) x10^3/uL RBC 4.50 (3.93-5.22) x10^6/uL Hgb 13.1 (11.2-15.7) g/dL Hct 39.3 (34.1-44.9) % MCV 87.3 (79.4-94.8) fL MCH 29.1 (25.6-32.2) pg MCHC 33.3 (32.2-35.5) g/dL RDW 13.9 (11.7-14.4) % Plt Count 280 (182-369) x10^3/uL MPV 9.0 L (9.4-12.3) fL Gran % 66.1 (34.0-71.1) % Immature Gran % (Auto) 0.4 (0.001-0.429) % Nucleat RBC Rel Count 0.0 (0.00-0.2) % Eos # (Auto) 0.01 L (0.04-0.36) x10^3/uL Immature Gran # (Auto) 0.03 (0.001-0.031) x10^3u/L Absolute Lymphs (auto) 2.34 (1.18-3.74) x10^3/uL Absolute Monos (auto) 0.46 (0.24-0.86) x10^3/uL Absolute Nucleated RBC 0.00 (0.00-0.012) x10^3u/L Lymphocytes % 27.7 (19.3-51.7) % Monocytes % 5.5 (4.7-12.5) % Eosinophils % 0.1 L (0.7-5.8) % Basophils % 0.2 (0.1-1.2) % Absolute Granulocytes 5.58 (1.56-6.13) x10^3/uL Basophils # 0.02 (0.01-0.08) x10^3/uL Sodium 142 (135-145) mmol/L Potassium 3.6 (3.5-5.1) mmol/L Chloride 109 H (98-107) mmol/L Carbon Dioxide 19 L (22-30) mmol/L Anion Gap 17.5 H (5-15) MEQ/L BUN 6 L (7-17) mg/dL Creatinine 0.73 (0.52-1.04) mg/dL Estimated GFR 97.1 ML/MIN Glucose 103 (74-106) mg/dL Calcium 9.2 (8.4-10.2) mg/dL Total Bilirubin 0.40 (0.2-1.3) mg/dL AST 21 (14-36) U/L ALT 17 (0-35) U/L Alkaline Phosphatase 101 (38-126) U/L Serum Total Protein 7.9 (6.3-8.2) g/dL Albumin 4.5 (3.5-5.0) g/dL Amylase 41 (30-110) U/L Lipase 21 L (23-300) U/L - Progress Progress: unchanged <JALYN MEYERS - Last Filed: 04/20/24 19:34> - Progress Progress Note: Patient was turned over to me at shift change. She has symptoms consistent with a kidney stone. She has had kidney stones before. It came on somewhat suddenly is in the right flank and radiates down to her right inguinal area. Nothing only makes better or worse. The pain is intermittent and crampy and colicky. She is not any fever or chills. Her lab work looked good. There is no abnormalities. A CT showed a 2 mm stone in the distal calyx. There is no obstruction.I think that the patient is having kidney stone pain. I gave her some Toradol and Zofran here. I went to send her home with some Toradol and Zofran. On the differential wasRenal lithiasis, cholecystitis, appendicitis. The CT showed it to be a kidney stone. 04/20/24 19:31 (JALYN MEYERS) <DENNIS DAIGLE - Last Filed: 04/20/24 18:33> - Departure Departure Disposition: Home Critical Care Time: No <JALYN MEYERS - Last Filed: 04/20/24 19:34> - Departure Clinical Impression: Kidney stone Condition: Stable Referrals: ADILENE WYNN [COURTESY STAFF] - Follow up/PCP as directed Instructions: Kidney Stones (DC) Prescriptions: Ketorolac Trometh 10 mg Tab [TORAdol 10 MG TABLET] 10 mg PO Q6H PRN PRN #20 tablet PRN Reason: Pain Ondansetron ODT 4 MG [Zofran Odt 4 mg] 4 mg PO Q6H PRN PRN #10 tablet PRN Reason: Nausea
[2024-04-20] MEDS ORDERED: Sodium Chloride 0.9% 1000 ML 1,000 ML ONE (17:21)
[2024-04-20] MEDS ORDERED: TORAdol 30 mg Injection ONE (17:21)
[2024-04-20] MEDS ORDERED: Zofran 4 MG/2 ML VIAL ONE ×2 (17:21→19:39)
[2024-04-20] MEDS: Zofran 4 MG/2 ML VIAL IV ONE ×2 (17:35→19:41)
[2024-04-20] MEDS: Sodium Chloride 0.9% 1000 ML 1,000 ML IV STA (17:36)
[2024-04-20] MEDS: TORAdol 30 mg Injection IV ONE ×2 (17:37→19:39)
[2024-04-20 17:40] LABS: Absolute Neutrophil Ct (ANC) 5.58 x10^3/uL (1.56-6.13); BASOPHIL % 0.2 % (0.1-1.2); Basophil (Absolute #) 0.02 x10^3/uL (0.01-0.08); Eosinophil % 0.1 % (0.7-5.8); Eosinophil (Absolute #) 0.01 x10^3/uL (0.04-0.36); Hematocrit 39.3 % (34.1-44.9); Hemoglobin 13.1 g/dL (11.2-15.7); IMMATURE GRAN # 0.03 x10^3u/L (0.001-0.031); IMMATURE GRAN % 0.4 % (0.001-0.429); Lymphocyte (Absolute #) 2.34 x10^3/uL (1.18-3.74); Lymphocytes % 27.7 % (19.3-51.7); Mean Cell Volume 87.3 fL (79.4-94.8); Mean Corpuscular Hemoglobin 29.1 pg (25.6-32.2); Mean Corpuscular Hgb Concent. 33.3 g/dL (32.2-35.5); Monocyte (Absolute #) 0.46 x10^3/uL (0.24-0.86); Monocytes % 5.5 % (4.7-12.5); Neutrophil % 66.1 % (34.0-71.1); Platelet Count 280 x10^3/uL (182-369); Red Cell Distribution Width 13.9 % (11.7-14.4); White Blood Count 8.4 x10^3/uL (3.98-10.04)
[2024-04-20] MEDS ORDERED: MORPHINE SULFATE 4 MG INJ ONE (17:48)
[2024-04-20] MEDS: MORPHINE SULFATE 4 MG INJ IV ONE (17:49)
[2024-04-20 17:55] LABS: ALBUMIN 4.5 g/dL (3.5-5.0); ANION GAP 17.5 MEQ/L (5-15); BILIRUBIN,TOTAL 0.4 mg/dL (0.2-1.3); Calcium 9.2 mg/dL (8.4-10.2); Creatinine 1 0.73 mg/dL (0.52-1.04); EST GLOMERULAR FILTRATION RATE 97.1 ML/MIN; Potassium 3.6 mmol/L (3.5-5.1); Total Protein 7.9 g/dL (6.3-8.2)
[2024-04-20 19:02] VITALS: PULSE 93; RESP 13
--- NOTE | 2024-04-20 19:10 | XRAY ---
CLINICAL HISTORY: right flank pain COMPARISON: Comparison is made with abdomen and pelvis without contrast dated 08/16/2022. TECHNIQUE: CT of the abdomen and pelvis was performed with contrast, with the following protocol: axial images with, and reconstructed coronal and sagittal images. One of the following dose reduction techniques was utilized for this exam: Automated exposure control, adjustment of the mA and/or kV according to patient size, and use of iterative reconstruction. FINDINGS: Chest: Right middle lobe nodule 10 mm.(stable) Abdomen: Liver: Increase in size 17.3 cm, Normal shape, and density. No focal lesions, cysts, or masses were identified. Hepatic vasculature and biliary ducts are unremarkable. Gallbladder and Biliary System: Surgically removed. The common bile duct is normal in caliber 9 mm without dilation.(normal with age and post-operative) Pancreas: Pancreatic head, body, and tail are visualized and appear normal in size and density. No pancreatic masses or calcifications were noted. The pancreatic duct is not dilated. Spleen: Normal in size, shape, and density. No splenic lesions or masses were identified. Lower pole spenul Appendix: Not seen. No evidence of appendiceal abscess or perforation. Kidneys and Adrenal Glands: Both kidneys are normal in size, shape, and position. Cortical thickness is within normal limits. No renal calculi or hydronephrosis. Perinephric fat strandings. Right upper calyx small 2 mm stone with no obstructive changes. Adrenal glands are unremarkable with no evidence of masses or hyperplasia. Pelvis: Urinary Bladder: Normal in contour and wall thickness. No intraluminal lesions identified. Uterus: Not seen. Vagina: Normal in contour and wall thickness. Cervix: No evidence of mass or abnormal thickening. Peritoneal and Retroperitoneal Structures: No free fluid or abnormal fluid collections were identified within the abdomen or pelvis. No lymphadenopathy was noted. Bowel: The visualized bowel loops are normal in caliber and appearance. No evidence of bowel obstruction or wall thickening. Bones and Soft Tissues: Lumbar spondylosis with T12 compression fracture with mild retrolisthesis. Pelvic bones and soft tissues are unremarkable. IMPRESSION: 1. Mild hepatomegaly.(unchanged) 2. Lumbar spondylosis with T12 compression fracture with mild retrolisthesis.(new) 3. Right upper calyx 2 mm stone. No obstructive changes.(new) Electronically Signed by: Fernando Goodrich MD. (04/20/2024 19:06:49 EST)
[2024-04-20 19:33] LABS: Appearance Clear (Clear); Bacteria None Seen /HPF (None Seen); Bilirubin Negative (Negative); Blood Negative (Negative); Epithelial Cells None Seen /HPF (None Seen); Glucose, Urine Negative (Negative); Hyaline Casts NONE SEEN /LPF (0-2); Ketones Negative (Negative); Leukocyte Esterase Negative (Negative); Nitrite Negative (Negative); Protein,Urine Dip Negative (Negative); RBC 0-2 /HPF (0-5); Specific Gravity >=1.030 (1.005-1.030); Urobilinogen 0.2 mg/dL (0.2); WBC 0-2 /HPF (0-5)
[2024-04-20] MEDS ORDERED: MORPHINE SULFATE 10 MG/ML ONE (19:40)
[2024-04-20] MEDS: MORPHINE SULFATE 10 MG/ML IM ONE (19:41)
[2024-04-20 20:13] VITALS: BP 107/78; O2SAT 94
== END 2024-04-20 20:16 | disposition home or self-care (01) ==
LOC: ED 16:54
DX: N20.0 Calculus of kidney (principal); R10.9 Unspecified abdominal pain; E11.9 Type 2 diabetes mellitus without complications; I10 Essential (primary) hypertension; E78.5 Hyperlipidemia, unspecified; Z79.4 Long term (current) use of insulin; Z79.85 Long-term (current) use of injectable non-insulin antidiabetic drugs; Z79.899 Other long term (current) drug therapy; Z72.0 Tobacco use; Z87.442 Personal history of urinary calculi
CPT/HCPCS: 36415; 74177; 80053; 81001; 82150; 83690; 85025; 96361; 96374; 96375; 96376; 99284; 99285; J1885; J2270; J2405